=== PATIENT | female | born 1935 | race Caucasian/White ===

== ENCOUNTER → 2017-01-19 | Outpatient (CLI) | payer MEDICARE, OTHER ==
[~2017-01-19] MED LIST: CEPH500C PO; TRAM50TA2 PO
--- NOTE | 2017-01-19 15:50 | Diagnostic Imaging Report ---
INDICATION: Right ankle trauma, pain. EXAMINATION: Three views of the right ankle were obtained. FINDINGS: No fracture, dislocation or other acute abnormalities. IMPRESSION: Negative right ankle. Dictated by: Dictated on workstation # [id number]
== END ==
LOC: RAD 15:18
DX: M25.471 Effusion, right ankle (principal)
CPT/HCPCS: 73610

== ENCOUNTER → 2017-02-01 | Outpatient (CLI) | payer MEDICARE, OTHER ==
--- NOTE | 2017-02-01 15:21 | Diagnostic Imaging Report ---
PROCEDURE: CT right lower extremity without contrast. TECHNIQUE: Axially acquired CT was obtained through the right ankle without intravenous contrast. Coronal and sagittal reformations were also performed. INDICATION: Right ankle bruising after fall three weeks ago. FINDINGS: There is no fracture or dislocation seen. There is no focal bone lesion or bone destruction identified. There is significant circumferential soft tissue swelling mostly involving the subcutaneous tissues and is more pronounced along the anterolateral aspect of the ankle. No focal discrete fluid collection, however, is seen. There are degenerative changes with small osteophytes noted at the anterior and posterior margins of the ankle. The tendons including the Achilles tendon and the plantar fascia around the right ankle appear grossly unremarkable. IMPRESSION: No fracture or focal bone abnormality seen. There is nonspecific circumferential subcutaneous tissue edema around the ankle seen. Dictated by: Dictated on workstation # [id number]
== END ==
LOC: RAD 13:20
DX: M25.571 Pain in right ankle and joints of right foot (principal); R60.0 Localized edema
CPT/HCPCS: 73700

== ENCOUNTER 2017-04-12 10:55 | Outpatient (RCR) | payer MEDICARE, OTHER ==
[2017-04-01] MEDS: LINEZOLID 600MG/300ML IVPB (PRE-MIX) IV SCH (13:36)
[2017-04-01 14:54] VITALS: BP 142/86
[2017-04-02] MEDS: LINEZOLID 600MG/300ML IVPB (PRE-MIX) IV SCH ×2 (08:57→19:56)
[2017-04-02] MEDS: CATHETER FLUSH 10 ML SYR IV PRN ×2 (08:57→09:55)
[2017-04-02 09:26] VITALS: BP 120/80
[2017-04-02 20:01] VITALS: BP 120/80
[2017-04-03] MEDS: LINEZOLID 600MG/300ML IVPB (PRE-MIX) IV SCH ×2 (09:00→19:55)
[2017-04-03] MEDS: CATHETER FLUSH 10 ML SYR IV PRN ×3 (09:00→19:55)
[2017-04-03 09:22] VITALS: BP 120/80
[2017-04-03 19:45] VITALS: BP 0/0
[2017-04-04] MEDS: CATHETER FLUSH 10 ML SYR IV PRN ×3 (09:02→19:43)
[2017-04-04 09:05] VITALS: BP 0/0
[2017-04-04] MEDS: LINEZOLID 600MG/300ML IVPB (PRE-MIX) IV SCH ×2 (09:05→19:43)
[2017-04-04 19:45] VITALS: BP 0/0
[2017-04-05] MEDS: LINEZOLID 600MG/300ML IVPB (PRE-MIX) IV SCH ×2 (08:43→19:49)
[2017-04-05] MEDS: CATHETER FLUSH 10 ML SYR IV PRN ×4 (08:43→20:57)
[2017-04-05 09:55] VITALS: BP 0/0
[2017-04-05 21:02] VITALS: BP 0/0
[2017-04-06] MEDS: LINEZOLID 600MG/300ML IVPB (PRE-MIX) IV SCH ×2 (08:43→19:44)
[2017-04-06] MEDS: CATHETER FLUSH 10 ML SYR IV PRN ×2 (08:43→19:44)
[2017-04-06 09:48] VITALS: BP 0/0
[2017-04-06 19:40] VITALS: BP 0/0
[2017-04-07] MEDS: CATHETER FLUSH 10 ML SYR IV PRN ×2 (08:42→09:44)
[2017-04-07] MEDS: LINEZOLID 600MG/300ML IVPB (PRE-MIX) IV SCH ×2 (08:44→19:45)
[2017-04-07 09:45] VITALS: BP 0/0
[2017-04-07 21:00] VITALS: BP 0/0
[2017-04-08] MEDS: CATHETER FLUSH 10 ML SYR IV PRN (08:52)
[2017-04-08] MEDS: LINEZOLID 600MG/300ML IVPB (PRE-MIX) IV SCH (08:52)
[2017-04-08 09:50] VITALS: BP 0/0
[~2017-04-12] VITALS: Ht 157.5 cm; Wt 71.4 kg
[2017-04-12 11:27] VITALS: BP 0/0
== END 2017-05-14 | disposition home or self-care (01) ==
LOC: 4TH RCR 10:55
DX: L03.115 Cellulitis of right lower limb (principal)
CPT/HCPCS: 76937; 96365

== ENCOUNTER → 2017-05-05 | Outpatient (CLI) | payer MEDICARE, OTHER ==
--- NOTE | 2017-05-05 14:08 | Diagnostic Imaging Report ---
Renal ultrasound. INDICATION: Hydronephrosis. FINDINGS: The right kidney is 8.2 and the left kidney is 9.2 cm in length. There is suggestion of minimal pelvocaliectasis or perhaps parapelvic cysts in the left kidney with no significant hydronephrosis. Moderate cortical atrophy seen bilaterally. The bladder is not significantly distended with no definite abnormality. IMPRESSION: Nozx-xe-degquyfm atrophy. Minimal pelvocaliectasis in the left kidney. This appearance could also be related to small parapelvic cysts. Dictated by: Dictated on workstation # [id number]
== END ==
LOC: RAD 13:07
DX: N13.30 Unspecified hydronephrosis (principal)
CPT/HCPCS: 76770

== ENCOUNTER 2017-05-29 14:05 | Outpatient (RCR) | payer MEDICARE, OTHER ==
[2017-05-27 15:30] VITALS: BP 118/80
[2017-05-27] MEDS: cefTRIAXone 1 GM (ROCEPHIN) VIAL IM SCH (16:18)
[2017-05-27] MEDS: LIDOCAINE 1% INJ 20 ML (XYLOCAINE) VIAL INJ SCH (16:19)
[2017-05-28 18:31] VITALS: BP 110/75
[2017-05-28] MEDS: LIDOCAINE 1% INJ 20 ML (XYLOCAINE) VIAL INJ SCH (18:36)
[2017-05-28] MEDS: cefTRIAXone 1 GM (ROCEPHIN) VIAL IM SCH (18:36)
[~2017-05-29] VITALS: Ht 157.5 cm; Wt 71.4 kg
[~2017-05-29 14:05] MED LIST changes: +cefTRIAXone 1 GM (ROCEPHIN) VIAL IM ONE
[2017-05-29 14:11] VITALS: BP_SYST 110; BP_DIAS 71; BP_DIAS 75
[2017-05-29] MEDS: cefTRIAXone 1 GM (ROCEPHIN) VIAL IM SCH (14:17)
[2017-05-29] MEDS: LIDOCAINE 1% INJ 20 ML (XYLOCAINE) VIAL INJ SCH (14:17)
== END 2017-08-25 | disposition home or self-care (01) ==
LOC: 4TH RCR 14:05
DX: N39.0 Urinary tract infection, site not specified (principal)
CPT/HCPCS: 96372

== ENCOUNTER → 2017-07-05 | Outpatient (CLI) | payer MEDICARE, OTHER ==
[~2017-07-05] MED LIST changes: -cefTRIAXone 1 GM (ROCEPHIN) VIAL IM ONE
--- NOTE | 2017-07-05 18:13 | Diagnostic Imaging Report ---
PROCEDURE: US Carotid Duplex Bilateral. TECHNIQUE: Multiple real-time grayscale images were obtained over the carotid arteries in various projections bilaterally. Additional duplex Doppler and color Doppler images were also obtained. INDICATION: Transient cerebral attack. FINDINGS: There is mild atherosclerotic calcified plaque along the distal common carotid and proximal internal carotid artery. The right carotid arteries demonstrate no significant plaque. Color Doppler demonstrates patency of the common, internal and external carotid arteries. The vertebral arteries demonstrate antegrade flow on both sides. Peak systolic velocities in the right ICA are 53, 68, and 65 cm/s from proximal to distal and on the left 48, 74, and 76 cm/s. ICA/CCA ratios are up to 1 on the right side and 1.1 on the left. IMPRESSION: Estimated underlying stenosis is less than 40% on both sides. Dictated by: Dictated on workstation # [id number]
== END ==
LOC: RAD 10:51
DX: G45.9 Transient cerebral ischemic attack, unspecified (principal)
CPT/HCPCS: 93880

== ENCOUNTER → 2017-08-02 | Outpatient (CLI) | payer MEDICARE, OTHER | LOC: CARD 09:36 | DX: G45.9 Transient cerebral ischemic attack, unspecified (principal) | CPT/HCPCS: 93306 ==

== ENCOUNTER → 2017-09-29 | Outpatient (CLI) | payer MEDICARE, OTHER ==
[~2017-09-29] MED LIST changes: +IOHEXOL 350 MG/ML 100 ML (OMNIPAQUE 350) VIAL IV ONE; +NS 250 ML (IVPB) BAG IV ONE
--- NOTE | 2017-09-29 11:21 | Diagnostic Imaging Report ---
PROCEDURE: CT abdomen and pelvis with and without contrast. TECHNIQUE: Precontrast acquisitions were acquired through the abdomen and pelvis. Multiple contiguous axial images were obtained through the abdomen and pelvis after the administration of intravenous contrast. INDICATION: Right upper quadrant pain for one week. Comparison is made with prior CT from 09/06/2012. The lung bases are clear. The liver contains a small low-density in the right lobe near the dome, stable when compared with exam from September 06, 2012 and likely a cyst. There is generalized low density throughout the liver suggestive of hepatic steatosis. The gallbladder is surgically absent. The pancreas and spleen are unremarkable. No adrenal mass is detected. Both kidneys do contain renal sinus cysts. The aorta is non-aneurysmal. The small and large bowel loops are normal caliber. There is sigmoid diverticulosis without evidence of acute diverticulitis. There is a tiny fat-containing umbilical hernia. There is no ascites. IMPRESSION: 1. Hepatic steatosis and probable small hepatic cyst. 2. Sigmoid diverticulosis without evidence of acute diverticulitis. 3. No acute features detected. Dictated by: Dictated on workstation # [id number]
== END ==
LOC: RAD 09-27 10:03
DX: K76.0 Fatty (change of) liver, not elsewhere classified (principal); K57.30 Diverticulosis of large intestine without perforation or abscess without bleeding
CPT/HCPCS: 74178

== ENCOUNTER 2018-01-31 09:58 | Observation (INO) | payer MEDICARE, OTHER ==
[~2018-01-31] VITALS: Ht 157.5 cm; Wt 67.6 kg
[~2018-01-31 09:58] MED LIST changes: -IOHEXOL 350 MG/ML 100 ML (OMNIPAQUE 350) VIAL IV ONE; -NS 250 ML (IVPB) BAG IV ONE
--- NOTE | 2018-01-31 11:20 | Diagnostic Imaging Report ---
INDICATION: Status post fall, scrapes and bruises, pain. TECHNIQUE: Two views of the right forearm were performed. CORRELATION STUDY: None. FINDINGS: There is diffuse bony demineralization. No findings to suggest an acute fracture about the radius and/or ulna. Limited visualization of the elbow appears unremarkable. There may be a previous ulnar styloid process fracture. There is a lucency through the distal lateral radius. A definitive fracture line is not otherwise suggested. No offset. IMPRESSION: 1. Lucency of the distal lateral radius at the region of the radial styloid. While this may be artifactual, correlation for any symptoms in this area would be recommended. If further assessment is desired, dedicated wrist radiographs would be recommended. 2. The remainder of the examination is unremarkable for acute findings. Diffuse bony demineralization is present. Dictated by: Dictated on workstation # [id number]
--- NOTE | 2018-01-31 11:24 | Diagnostic Imaging Report ---
PROCEDURE: CT head and CT cervical spine without contrast. TECHNIQUE: Multiple contiguous axial images were obtained through the brain and cervical spine without the use of intravenous contrast. Sagittal and coronal reformations through the cervical spine were then performed. INDICATION: Trauma. Fall. COMPARISON: CT head dated 07/08/2014. FINDINGS: CT head: The ventricles and cortical sulci are diffusely prominent, compatible with age-related volume loss. There are confluent areas of abnormal, low attenuation in the periventricular white matter. This is consistent with chronic small vessel ischemic changes. There is no midline shift or mass-effect. No acute intra-axial hemorrhage is seen. There are no abnormal areas of increased or decreased density to suggest acute hemorrhage or edema. No extra-axial masses or collections are present. There is small soft tissue hematoma posterior laterally on the right. Evaluation of underlying bony calvarium does demonstrate acute nondepressed fracture extending from the left occipital region inferiorly to the left suboccipital region posterior to the mastoid air cells this is best visualized on the accompanying CT cervical spine exam (image 1, series 4). The visualized portions of mastoid air cells and paranasal sinuses are clear. CT cervical spine: Evaluation static alignment demonstrates straightening with slight reversal of normal lordotic curvature of cervical spine. Findings may be related to positioning, as well as spasm. There is no significant anteroretrolisthesis. There is no evidence of jumped facets. Vertebral body heights are maintained. There is no evidence of acute fracture. No bony fragments are seen within the spinal canal. There are zech-xp-hqujixyn multilevel degenerative changes consisting of intervertebral disc height loss with anterior and posterior disc osteophyte complex formations. These changes appear greatest at the C4-C5 and C6-C7 levels. IMPRESSION: 1. No acute intracranial abnormality. No CT evidence of mass, acute infarct or intracranial hemorrhage. 2. Nondepressed right occipital calvarial fracture. 3. Age-related parenchymal volume loss with chronic small vessel ischemic changes in the deep white matter. 4. No CT evidence of acute fracture or dislocation of cervical spine. 5. Hcvx-kd-yyrcolos multilevel degenerative changes of the cervical spine. Results are called to Jovani Drake by Dr. James at approximately 1110 hours on 01/31/2018. Dictated by: Dictated on workstation # [id number]
[2018-01-31] MEDS ORDERED: HYDROcodone/APAP 5 MG/325 MG (LORTAB) TAB PO ONE (12:30)
[2018-01-31 12:31] LABS: BASOPHILS % (AUTO) 0 % (0-10); EOSINOPHILS % (AUTO) 0 % (0-10); HEMATOCRIT 41 % (35-52); HEMOGLOBIN 13.1 G/DL (11.5-16.0); LYMPHOCYTES % (AUTO) 5 % (12-44); MEAN CORPUSCULAR HEMOGLOBIN 31 PG (25-34); MEAN CORPUSCULAR HGB CONC 32 G/DL (32-36); MEAN CORPUSCULAR VOLUME 96 FL (80-99); MEAN PLATELET VOLUME 10.1 FL (7.4-10.4); MONOCYTES # (AUTO) 1.2 X 10^3 (0.0-1.0); MONOCYTES % (AUTO) 6 % (0-12); NEUTROPHILS # (AUTO) 19.3 X 10^3 (1.8-7.8); NEUTROPHILS % (AUTO) 90 % (42-75); PLATELET COUNT 223 10^3/uL (130-400); RED BLOOD COUNT 4.26 10^6/uL (4.35-5.85); RED CELL DISTRIBUTION WIDTH 14.7 % (10.0-14.5); WHITE BLOOD COUNT 21.5 10^3/uL (4.3-11.0)
[2018-01-31] MEDS ORDERED: ONDANSETRON 4 MG/2 ML (SDV) Z0FRAN IVP ONE (12:45)
[2018-01-31 12:48] LABS: ALANINE AMINOTRANSFERASE 20 U/L (0-55); ALBUMIN 3.8 GM/DL (3.2-4.5); ALKALINE PHOSPHATASE 64 U/L (40-136); BILIRUBIN,TOTAL 0.5 MG/DL (0.1-1.0); BUN/CREATININE RATIO 19; CALCIUM 9.3 MG/DL (8.5-10.1); CARBON DIOXIDE 26 MMOL/L (21-32); CHLORIDE 109 MMOL/L (98-107); CREATININE SERUM 0.84 MG/DL (0.60-1.30); GFR ESTIMATED > 60; GLUCOSE 150 MG/DL (70-105); POTASSIUM 3.7 MMOL/L (3.6-5.0); SODIUM 144 MMOL/L (135-145); TOTAL PROTEIN 6.4 GM/DL (6.4-8.2)
[2018-01-31 12:55] LABS: PROTHROMBIN TIME PATIENT 12.6 SEC (12.2-14.7)
--- NOTE | 2018-01-31 13:05 | ED Fall/Injury ---
General Chief Complaint: Trauma-Non Activation Stated Complaint: FALL Nursing Triage Note: TO ROOM PER EMS [facility] [facility] AND HIT HER HEAD. NO LOC,BUT REPORT TORE HER SKIN ON R ARM WHEN TRYING TO GET UP. REFUSED TO HAVE VITALS TAKEN OR BE TOUCHED. EMS REPORT BLEEDING FROM BACK OF HEAD. Source: patient, EMS Exam Limitations: no limitations History of Present Illness Date Seen by Provider: Jan 31, 2018 Time Seen by Provider: 10:00 Initial Comments This 82-year-old woman presents to the emergency room via EMS after having a fall in the parking lot at the [employer]. She is not certain what made her fall but she denies any prodrome or loss of consciousness. She complains of pain on the posterior scalp where there is oozing abrasion/contusion. She also has pain of the right forearm where there is a large skin tear. She is fairly resistant to assessment by EMS. She reports very sensitive and fragile skin that is easily irritated by a blood pressure cuff, transfers, etc. She refuses use of blood pressure cuffs. She is alert and oriented on arrival. Patient states she takes no medications except occasional hydrocodone. At a later time in her visit she notes she is currently being treated with IM and antibiotics for a urinary tract infection. This is being managed by Dr. Muhammad's office. Patient states she has interstitial cystitis and was to have bladder surgery recently. However, she aborted the surgery in preop because of the staff's desire to obtain blood pressures per her report. Patient states she has MS and that may be why she fell. Patient complains of headache and just not feeling well. Patient states she cannot walk without a walker at baseline. Occurred: just prior to arrival Allergies and Home Medications Allergies Coded Allergies: arformoterol (Verified Allergy, Intermediate, TREMORS, 06/14/16) azithromycin (Verified Allergy, Intermediate, RASH, 06/14/16) cefadroxil (Verified Allergy, Intermediate, RASH, 06/14/16) cephalexin (Verified Allergy, Intermediate, JAW PAIN, 06/14/16) levofloxacin (Verified Allergy, Intermediate, JOINT PAIN, 06/14/16) Penicillins (Verified Allergy, Unknown, 07/08/14) Sulfa (Sulfonamide Antibiotics) (Verified Allergy, Unknown, 07/08/14) albuterol (Verified Allergy, Unknown, 06/14/16) ciprofloxacin (Verified Allergy, Unknown, 07/08/14) erythromycin base (Verified Allergy, Unknown, 06/14/16) Uncoded Allergies: "CYCLINES" (Allergy, Unknown, 10/02/14) Home Medications No Active Prescriptions or Reported Meds Patient Home Medication List Home Medication List Reviewed: Yes Review of Systems Constitutional: see HPI Eyes: No Symptoms Reported Ears, Nose, Mouth, Throat: no symptoms reported Respiratory: no symptoms reported Cardiovascular: no symptoms reported Gastrointestinal: no symptoms reported Genitourinary: see HPI : No Musculoskeletal: see HPI Skin: see HPI Psychiatric/Neurological: No Symptoms Reported Past Ndovict-Czhthj-Rhfxhm Hx Patient Social History Alcohol Use: Denies Use Recreational Drug Use: No Smoking Status: Unknown if Ever Smoked Recent Foreign Travel: No Contact w/Someone Who Travel: No Recent Infectious Disease Expo: No Recent Hopitalizations: No Immunizations Up To Date Tetanus Booster (TDap): More than 5yrs Date of Pneumonia Vaccine: May 15, 2010 Date of Influenza Vaccine: May 31, 2016 Seasonal Allergies Seasonal Allergies: No Past Medical History Surgeries: Yes (LEFT WRIST FX-PLATE) Adenoidectomy, Appendectomy, Gallbladder, Hysterectomy, Lumpectomy, Tonsillectomy Respiratory: Yes COPD Cardiac: No Neurological: Yes (stated history of multiple sclerosis) Multiple Sclerosis : No Reproductive Disorders: No 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 Sexually Transmitted Disease: No HIV/AIDS: No Genitourinary: Yes (interstitial cystitis) Gastrointestinal: No Musculoskeletal: Yes (FREQUENT FALLS-FROM HIP GIVING OUT ) Fractures Endocrine: No HEENT: Yes Cataract, Glaucoma Loss of Vision: Denies Hearing Impairment: Denies Cancer: No Psychosocial: No Integumentary: Yes (CELLULITIS RT LOWER LEG) Blood Disorders: No Adverse Reaction/Blood Tranf: No (HAS HAD BLOOD WITH NO REACTION (CHILD )) Physical Exam Vital Signs Vital Signs - First Documented 01/31/18 10:08 Temp 97.0 Pulse 82 Resp 18 B/P (MAP) 0/0 (0) Pulse Ox 97 O2 Delivery Room Air Capillary Refill : Less Than 3 Seconds General Appearance: WD/WN, mild distress HEENT: PERRL/EOMI, pharynx normal, other (contusion/abrasion on the right occiput oozing blood) Neck: non-tender, full range of motion, normal inspection Cardiovascular: regular rate, rhythm, no edema, no murmur Respiratory: lungs clear, normal breath sounds, no respiratory distress, no accessory muscle use Gastrointestinal: normal bowel sounds, non tender, soft Extremities: other (mild edema and ecchymosis around the ankles. Skin tear on the right elbow with scattered bruising on the forearms. Tenderness diffusely on the extremities stated as chronic) Neurologic/Psychiatric: food taster II-XII nml as tested, no motor/sensory deficits, alert, oriented x 3, other (moderately irritable mood) Skin: normal color, warm/dry, ecchymosis Leeanna Coma Score Best Eye Response: (4) Open Spontaneously Best Verbal Response: (5) Oriented Best Motor Response: (6) Obeys Commands Leeanna Total: 15 Progress/Results/Core Measures Results/Orders Lab Results Laboratory Tests Test 01/31/18 12:22 Range/Units White Blood Count 21.5 H 4.3-11.0 10^3/uL Red Blood Count 4.26 L 4.35-5.85 10^6/uL Hemoglobin 13.1 11.5-16.0 G/DL Hematocrit 41 35-52 % Mean Corpuscular Volume 96 80-99 FL Mean Corpuscular Hemoglobin 31 25-34 PG Mean Corpuscular Hemoglobin Concent 32 32-36 G/DL Red Cell Distribution Width 14.7 H 10.0-14.5 % Platelet Count 223 130-400 10^3/uL Mean Platelet Volume 10.1 7.4-10.4 FL Neutrophils (%) (Auto) 90 H 42-75 % Lymphocytes (%) (Auto) 5 L 12-44 % Monocytes (%) (Auto) 6 0-12 % Eosinophils (%) (Auto) 0 0-10 % Basophils (%) (Auto) 0 0-10 % Neutrophils # (Auto) 19.3 H 1.8-7.8 X 10^3 Lymphocytes # (Auto) 1.0 1.0-4.0 X 10^3 Monocytes # (Auto) 1.2 H 0.0-1.0 X 10^3 Eosinophils # (Auto) 0.0 0.0-0.3 10^3/uL Basophils # (Auto) 0.0 0.0-0.1 10^3/uL Neutrophils % (Manual) 85 % Lymphocytes % (Manual) 4 % Monocytes % (Manual) 5 % Eosinophils % (Manual) 0 % Basophils % (Manual) 0 % Band Neutrophils 6 % Blood Morphology Comment NORMAL Prothrombin Time 12.6 12.2-14.7 SEC INR Comment 1.0 0.8-1.4 Activated Partial Thromboplast Time 21 L 24-35 SEC Sodium Level 144 135-145 MMOL/L Potassium Level 3.7 3.6-5.0 MMOL/L Chloride Level 109 H 98-107 MMOL/L Carbon Dioxide Level 26 21-32 MMOL/L Anion Gap 9 5-14 MMOL/L Blood Urea Nitrogen 16 7-18 MG/DL Creatinine 0.84 0.60-1.30 MG/DL Estimat Glomerular Filtration Rate > 60 BUN/Creatinine Ratio 19 Glucose Level 150 H 70-105 MG/DL Calcium Level 9.3 8.5-10.1 MG/DL Total Bilirubin 0.5 0.1-1.0 MG/DL Aspartate Amino Transf (AST/SGOT) 18 5-34 U/L Alanine Aminotransferase (ALT/SGPT) 20 0-55 U/L Alkaline Phosphatase 64 40-136 U/L Total Protein 6.4 6.4-8.2 GM/DL Albumin 3.8 3.2-4.5 GM/DL My Orders Orders - JOVANI DRAKE MD Ct Head/Cervical Spine Wo (01/31/18 10:11) Forearm, Right, 2 Views (01/31/18 10:11) Hydrocodone/Apap 5/325 Tablet (Lortab 5 (01/31/18 12:30) Cbc With Automated Diff (01/31/18 12:16) Comprehensive Metabolic Panel (01/31/18 12:16) Protime With Inr (01/31/18 12:16) Partial Thromboplastin Time (01/31/18 12:16) Ua Culture If Indicated (01/31/18 12:16) Wrist, Right, 3 Views Or More (01/31/18 12:16) Ondansetron Injection (Zofran Injectio (01/31/18 12:45) Manual Differential (01/31/18 12:22) Medications Given in ED Current Medications Medications Dose Ordered Sig/Clare Route Start Time Stop Time Status Last Admin Dose Admin Acetaminophen/ Hydrocodone Bitart 1 tab ONCE ONCE PO 01/31/18 12:30 01/31/18 12:31 DC 01/31/18 12:38 1 TAB Ondansetron HCl 4 mg ONCE ONCE IVP 01/31/18 12:45 01/31/18 12:46 DC 01/31/18 12:37 4 MG Vital Signs/I&O 01/31/18 10:08 Temp 97.0 Pulse 82 Resp 18 B/P (MAP) 0/0 (0) Pulse Ox 97 O2 Delivery Room Air Blood Pressure Mean: 0 Progress Progress Note #1: Time: 13:22 Progress Note Patient was initially fairly resistant to assessment and care. She did consent to x-ray of the right forearm and a CT of the head and C-spine given the nature of her fall. The wound on her scalp did not require repair and was only oozing. It did eventually quit bleeding without intervention. CT scan demonstrated a right occipital skull fracture with no complicating features. It was nondepressed and there was no evidence of intracranial injury. Patient was neurologically intact. Case was reviewed with Dr. Oliva. Patient was offered admission for observation. Given her age and functional status she preferred admission. An IV and labs were obtained. Patient was found to have a leukocytosis. She states she had recently been treated with IM injections of Rocephin for a bladder infection. I contacted Dr. Muhammad's office to inquire about urine culture. No recent cultures have been performed. The office staff reported patient is noncompliant with the timing and duration of her Rocephin injections. Staff also noted that patient recently received a steroid trigger point injection which may have caused leukocytosis. Urine specimen has been collected and is pending. There was questionable fracture of the distal radius on forearm x-rays. Follow-up x-rays of the wrist were performed and demonstrated no fracture. Patient reports being up-to-date on her tetanus immunization. Patient had a very large skin tear on the right elbow. This area was irrigated with normal saline. The superficial skin was stretched back out over the wound. It was dressed topically with antibiotic ointment and Xeroform followed by a sterile gauze wrap. Patient was given Zofran and hydrocodone for treatment of her pain during the course of her care. Progress Note #2: Time: 13:43 Progress Note UA did suggest significant urinary tract infection. I have discussed with Dr. Muhammad's office. Rocephin will be administered in the hospital until culture results are known. The clinic is aware that a urine culture is being processed here and will follow-up on that as an outpatient to ensure appropriate treatment. Please note that patient has a listed Keflex allergy but the office confirms that she tolerates Rocephin injections without problem. Diagnostic Imaging Diagonstic Imaging: CT Plain Films/CT/US/NM/MRI: c-spine, head Comments CT head and C-spine viewed by me and report reviewed. Discussed with the radiologist. See report below: NAME: MILI WILKES [facility] REC#: [id number] PT STATUS: REG ER : 1935 PHYSICIAN: JOVANI DRAKE MD ADMIT DATE: 01/31/18/ER Draft Date of Exam:01/31/18 CT HEAD/CERVICAL SPINE WO PROCEDURE: CT head and CT cervical spine without contrast. TECHNIQUE: Multiple contiguous axial images were obtained through the brain and cervical spine without the use of intravenous contrast. Sagittal and coronal reformations through the cervical spine were then performed. INDICATION: Trauma. Fall. COMPARISON: CT head dated 07/08/2014. FINDINGS: CT head: The ventricles and cortical sulci are diffusely prominent, compatible with age-related volume loss. There are confluent areas of abnormal, low attenuation in the periventricular white matter. This is consistent with chronic small vessel ischemic changes. There is no midline shift or mass-effect. No acute intra-axial hemorrhage is seen. There are no abnormal areas of increased or decreased density to suggest acute hemorrhage or edema. No extra-axial masses or collections are present. There is small soft tissue hematoma posterior laterally on the right. Evaluation of underlying bony calvarium does demonstrate acute nondepressed fracture extending from the left occipital region inferiorly to the left suboccipital region posterior to the mastoid air cells this is best visualized on the accompanying CT cervical spine exam (image 1, series 4). The visualized portions of mastoid air cells and paranasal sinuses are clear. CT cervical spine: Evaluation static alignment demonstrates straightening with slight reversal of normal lordotic curvature of cervical spine. Findings may be related to positioning, as well as spasm. There is no significant anteroretrolisthesis. There is no evidence of jumped facets. Vertebral body heights are maintained. There is no evidence of acute fracture. No bony fragments are seen within the spinal canal. There are ctfu-ll-oztubfxi multilevel degenerative changes consisting of intervertebral disc height loss with anterior and posterior disc osteophyte complex formations. These changes appear greatest at the C4-C5 and C6-C7 levels. IMPRESSION: 1. No acute intracranial abnormality. No CT evidence of mass, acute infarct or intracranial hemorrhage. 2. Nondepressed right occipital calvarial fracture. 3. Age-related parenchymal volume loss with chronic small vessel ischemic changes in the deep white matter. 4. No CT evidence of acute fracture or dislocation of cervical spine. 5. Tuqn-ei-yeywvrmz multilevel degenerative changes of the cervical spine. Results are called to Jovani Drake by Dr. Bennett at approximately 1110 hours on 01/31/2018. Dictated on workstation # [id number] Dict: 01/31/18 1103 Trans: 01/31/18 1124 [facility] [id number] Interpreted by: MARIE BENNETT MD Diagonstic Imaging: Xray Plain Films/CT/US/NM/MRI: forearm Comments Forearm x-ray viewed by me and report reviewed. See report below: NAME: MILI WILKES [facility] REC#: [id number] PT STATUS: REG ER : 1935 PHYSICIAN: JOVANI DRAKE MD ADMIT DATE: 01/31/18/ER Signed Date of Exam: 01/31/18 FOREARM, RIGHT, 2 VIEWS INDICATION: Status post fall, scrapes and bruises, pain. TECHNIQUE: Two views of the right forearm were performed. CORRELATION STUDY: None. FINDINGS: There is diffuse bony demineralization. No findings to suggest an acute fracture about the radius and/or ulna. Limited visualization of the elbow appears unremarkable. There may be a previous ulnar styloid process fracture. There is a lucency through the distal lateral radius. A definitive fracture line is not otherwise suggested. No offset. IMPRESSION: 1. Lucency of the distal lateral radius at the region of the radial styloid. While this may be artifactual, correlation for any symptoms in this area would be recommended. If further assessment is desired, dedicated wrist radiographs would be recommended. 2. The remainder of the examination is unremarkable for acute findings. Diffuse bony demineralization is present. Dictated by: Dictated on workstation # [id number] Dict: 01/31/18 1104 Trans: 01/31/18 1132 Interpreted by: LITO HOLT DO Electronically signed by: LITO HOLT DO 01/31/18 1132 Diagonstic Imaging: Xray Plain Films/CT/US/NM/MRI: other (right wrist) Comments Right wrist x-ray viewed by me and report reviewed. See report below: NAME: MILI WILKES [facility] REC#: [id number] PT STATUS: REG ER : 1935 PHYSICIAN: JOVANI DRAKE MD ADMIT DATE: 01/31/18/ER Draft Date of Exam:01/31/18 WRIST, RIGHT, 3 VIEWS OR MORE INDICATION: Status post fall. Pain. TECHNIQUE: Three views of the right wrist at 1:09 PM. CORRELATION STUDY: None. FINDINGS: There is diffuse bony demineralization present. The radiocarpal articulation appears maintained. There are likely prior ulnar styloid process fractures. There is no acute fracture. The questioned lucency in the distal radius is not present on dedicated wrist views. Asymmetric sclerosis about the mid radial carpal row is present. The visualized soft tissues appearing unremarkable. IMPRESSION: Negative for acute bony abnormality about the right wrist. Diffuse bony demineralization. Dictated on workstation # [id number] Dict: 01/31/18 1301 Trans: 01/31/18 1306 [id number] Interpreted by: LITO HOLT DO Departure Communication (Admissions) Time/Spoke to Admitting Phy: 12:17 Dr. Oliva Impression Primary Impression: Skull fracture Qualified Codes: S02.119A - Unspecified fracture of occiput, initial encounter for closed fracture Additional Impressions: Skin tear of right upper extremity Fall on same level Qualified Codes: W18.30XA - Fall on same level, unspecified, initial encounter Contusion of scalp Qualified Codes: S00.03XA - Contusion of scalp, initial encounter Leukocytosis Qualified Codes: D72.829 - Elevated white blood cell count, unspecified Urinary tract infection Qualified Codes: N39.0 - Urinary tract infection, site not specified Disposition: ADMITTED INPATIENT Condition: Improved Admissions Decision to Admit Reason: Admit from ER (General) Decision to Admit/Date: Jan 31, 2018 Time/Decision to Admit Time: 12:30 Departure-Patient Inst. Referrals: MIRIAN MUHAMMAD MD (PCP/Family) Primary Care Physician Scripts No Active Prescriptions or Reported Meds JOVANI DRAKE MD Jan 31, 2018 13:05
[2018-01-31 13:27] LABS: BILIRUBIN,URINE NEGATIVE (NEGATIVE); CLARITY,URINE SLIGHTLY CLOUDY; COLOR,URINE YELLOW; GLUCOSE, URINE (UA) NEGATIVE (NEGATIVE); KETONES,URINE NEGATIVE (NEGATIVE); LEUKOCYTE ESTERASE ,URINE 3+ (NEGATIVE); NITRITE,URINE POSITIVE (NEGATIVE); PH,URINE 6.5 (5-9); PROTEIN,URINE 1+ (NEGATIVE); UROBILINOGEN,URINE NORMAL (NORMAL)
[2018-01-31 13:29] LABS: BAND NEUTROPHILS 6 %; BASOPHILS % (MANUAL) 0 %; EOSINOPHILS % (MANUAL) 0 %; LYMPHOCYTES % (MANUAL) 4 %; MONOCYTES % (MANUAL) 5 %; NEUTROPHILS % (MANUAL) 85 %; RBC MORPH NORMAL
[2018-01-31 13:35] LABS: BACTERIA,URINE MODERATE /HPF; WBC,URINE 50-100 /HPF
--- OUTSIDE RECORDS SUMMARY | 2018-01-31 13:35 | XMS REPORT | Clinical Summary ---
Author Author [facility] Address Unknown Phone Unavailable Care Team Providers Care Lay Out Worker Name Role Phone Heron Serrato MD PCP Source Comments Some departments are not documenting in the electronic medical record. If you do not see the information that you expected, contact Release of Information in the Health Information Management department at [phone] for further assistance in locating additional records.[facility] Allergies Active Allergy Reactions Severity Noted Date Comments Albuterol UNKNOWN Low 01/17/2017 Arformoterol RASH Medium 01/17/2017 Cefadroxil RASH Medium 01/17/2017 Cephalexin SEE COMMENTS Low 01/17/2017 JAW PAIN, BURNING IN LIPS. Ciprofloxacin RASH Medium 01/17/2017 Erythromycin UNKNOWN Low 01/17/2017 Hydrocodone-Acetaminophen RASH Medium 01/17/2017 Levofloxacin SEE COMMENTS Low 01/17/2017 JOINT PAIN. Minocycline UNKNOWN Low 01/17/2017 Penicillins HIVES Medium 01/17/2017 Sulfa (Sulfonamide HIVES Medium 01/17/2017 Antibiotics) Tetracycline RASH Medium 01/17/2017 Azithromycin RASH Medium 01/17/2017 Current Medications No known medications Active Problems Problem Noted Date Lumbar radiculopathy 01/17/2017 Family History Medical History Relation Name Comments Cancer Father Scoliosis Mother Blood Clots Sister Cancer Sister Relation Name Status Comments Father Mother Sister Social History Tobacco Use Types Packs/Day Years Used Date Never Smoker Alcohol Use Drinks/Week oz/Week Comments No 0 Standard 0.0 drinks or equivalent Sex Assigned at Date Recorded Not on file Last Filed Vital Signs Vital Sign Reading Time Taken Blood Pressure 150/60 02/28/2017 1:22 PM CDT Pulse 87 02/28/2017 1:22 PM CDT Temperature 36.7 C (98 F) 02/28/2017 9:49 AM CDT Respiratory Rate 20 02/28/2017 1:22 PM CDT Oxygen Saturation 98% 02/28/2017 1:22 PM CDT Inhaled Oxygen - - Concentration Weight 64.4 kg (142 lb) 02/28/2017 1:22 PM CDT Height 157.5 cm (5' 2") 02/28/2017 1:22 PM CDT Body Mass Index 25.97 02/28/2017 1:22 PM CDT Plan of Treatment Health Maintenance Due Date Last Done Comments PHYSICAL (COMPREHENSIVE) 10/14/1943 EXAM PERTUSSIS VACCINE 10/14/1947 TETANUS VACCINE 1953 SHINGLES VACCINE 1996 OSTEOPOROSIS SCREENING 2001 PNEUMONIA (PCV13/PPSV23) 2001 VACCINES (1 of 2 - PCV13) INFLUENZA VACCINE 05/15/2018 Results Not on filefrom Last 3 Months
--- OUTSIDE RECORDS SUMMARY | 2018-01-31 13:36 | XMS REPORT | Continuity of Care Document ---
Author Author [facility] Organization [facility] Address Unknown Phone Unavailable Allergies Active Description Code Type Severity Reaction Onset Reported/Identified Relationship to Patient Clinical Status Yes ciprofloxacin [id number] Drug Allergy Unknown N/A 07/08/2014 Yes hydrocodone [id number] Drug Allergy Unknown N/A 07/08/2014 Yes Penicillins [id number] Drug Allergy Unknown N/A 07/08/2014 Yes Sulfa (Sulfonamide Antibiotics) [id number] Drug Allergy Unknown N/A 2013 Yes "CYCLINES" "CYCLINES" Unknown N/A 10/02/2014 Yes arformoterol [id number] Drug Allergy Moderate TREMORS 06/14/2016 Yes azithromycin [id number] Drug Allergy Moderate RASH 06/14/2016 Yes cefadroxil [id number] Drug Allergy Moderate RASH 06/14/2016 Yes cephalexin [id number] Drug Allergy Moderate JAW PAIN 06/14/2016 Yes levofloxacin [id number] Drug Allergy Moderate JOINT PAIN 06/14/2016 Yes albuterol [id number] Drug Allergy Unknown N/A 06/14/2016 Yes erythromycin base [id number] Drug Allergy Unknown N/A 06/14/2016 Medications There is no data. Problems Date Dx Coded Attending Type Code Diagnosis Diagnosed By 12/07/2012 SABINA LEVINE, MIRIAN Vega Ot 707.09 PRESSURE ULCER, OTHER SITE 12/07/2012 MIRIAN MUHAMMAD MD Ot 707.21 PRESSURE ULCER, STAGE I 09/11/2013 MIRIAN MUHAMMAD MD Ot 707.9 CHRONIC SKIN ULCER NOS 09/11/2013 MIRIAN MUHAMMAD MD Ot 727.1 BUNION 12/20/2013 MIRIAN MUHAMMAD MD Ot 585.9 CHRONIC KIDNEY DISEASE, UNSPECIFIED 07/08/2014 Ot 707.09 07/08/2014 Ot 707.21 07/08/2014 Ot 585.9 07/08/2014 MAGI FERNANDES MD Ot 873.0 OPEN WOUND OF SCALP 07/08/2014 MAGI FERNANDES MD Ot 924.21 CONTUSION OF ANKLE 07/08/2014 MAGI FERNANDES MD Ot 959.01 HEAD INJURY, NOS 07/08/2014 MAGI FERNANDES MD Ot E000.8 OTHER EXTERNAL CAUSE STATUS 07/08/2014 MAGI FERNANDES MD Ot E849.0 ACCIDENT IN HOME 07/08/2014 MAGI FERNANDES MD Ot E888.9 FALL NOS 08/20/2014 MIRIAN MUHAMMAD MD Ot 715.96 10/02/2014 Ot 707.09 10/02/2014 Ot 707.21 10/02/2014 Ot 585.9 10/02/2014 Ot 496 CHR AIRWAY OBSTRUCT NEC 10/02/2014 Ot 891.0 OPEN WND KNEE /LEG/ANKLE 10/02/2014 Ot 924.8 MULTIPLE CONTUSIONS NEC 10/02/2014 Ot E000.8 OTHER EXTERNAL CAUSE STATUS 10/02/2014 Ot E849.0 ACCIDENT IN HOME 10/02/2014 Ot E888.1 FALL STRIKING OBJECT NEC 10/02/2014 Ot 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-PERTUSSIS, COMBINED [ 10/07/2014 Ot 457.1 OTHER LYMPHEDEMA 10/07/2014 Ot 459.33 CHRONIC VENOUS HYPERTEN W ULCER/INFLAMMA 10/07/2014 Ot 891.0 OPEN WND KNEE /LEG/ANKLE 10/07/2014 Ot E000.8 OTHER EXTERNAL CAUSE STATUS 10/07/2014 Ot E849.0 ACCIDENT IN HOME 10/07/2014 Ot E888.9 FALL NOS 06/08/2016 Ot 562.10 DIVERTICULOSIS COLON (W/O MENT OF HEMORR 06/08/2016 Ot 783.21 LOSS OF WEIGHT 06/08/2016 Ot 786.2 COUGH 06/08/2016 Ot 733.90 BONE CARTILAGE DIS NOS 06/08/2016 Ot 707.09 PRESSURE ULCER, OTHER SITE 06/08/2016 Ot 707.21 PRESSURE ULCER, STAGE I 06/08/2016 MIRIAN MUHAMMAD MD Ot 729.5 PAIN IN LIMB 06/08/2016 MIRIAN MUHAMMAD MD Ot 786.50 CHEST PAIN NOS 06/08/2016 MIRIAN MUHAMMAD MD Ot 786.2 COUGH 06/08/2016 Ot 585.9 CHRONIC KIDNEY DISEASE, UNSPECIFIED 06/08/2016 SABINA LEVINE, MIRIAN Vega Ot 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 06/08/2016 SABINA LEVINE, MIRIAN Vega Ot 715.37 LOC OSTEOARTH NOS-ANKLE 06/08/2016 MIRIAN MUHAMMAD MD Ot 719.43 JOINT PAIN-FOREARM 06/08/2016 MIRIAN MUHAMMAD MD Ot 719.47 JOINT PAIN-ANKLE 06/08/2016 SABINA LEVINE, MIRIAN Vega Ot 729.81 SWELLING OF LIMB 06/08/2016 SABINA LEVINE, MIRIAN Vega Ot 733.00 OSTEOPOROSIS NOS 06/08/2016 SABINA LEVINE, MIRIAN Vega Ot 715.96 OSTEOARTHROS NOS-L/LEG 06/08/2016 Ot 562.10 DIVERTICULOSIS COLON (W/O MENT OF HEMORR 06/08/2016 Ot 783.21 LOSS OF WEIGHT 06/08/2016 Ot 786.2 COUGH 06/08/2016 Ot 733.90 BONE CARTILAGE DIS NOS 06/08/2016 Ot 707.09 PRESSURE ULCER, OTHER SITE 06/08/2016 Ot 707.21 PRESSURE ULCER, STAGE I 06/08/2016 SABINA LEVINE, MIRIAN Vega Ot 729.5 PAIN IN LIMB 06/08/2016 SABINA LEVINE, MIRIAN Vega Ot 786.50 CHEST PAIN NOS 06/08/2016 SABINA LEVINE, MIRIAN Vega Ot 786.2 COUGH 06/08/2016 Ot 585.9 CHRONIC KIDNEY DISEASE, UNSPECIFIED 06/08/2016 MIRIAN MUHAMMAD MD Ot 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 06/08/2016 MIRIAN MUHAMMAD MD Ot 715.37 LOC OSTEOARTH NOS-ANKLE 06/08/2016 MIRIAN MUHAMMAD MD Ot 719.43 JOINT PAIN-FOREARM 06/08/2016 MIRIAN MUHAMMAD MD Ot 719.47 JOINT PAIN-ANKLE 06/08/2016 MIRIAN MUHAMMAD MD Ot 729.81 SWELLING OF LIMB 06/08/2016 MIRIAN MUHAMMAD MD Ot 733.00 OSTEOPOROSIS NOS 06/08/2016 SABINA LEVINE, MIRIAN Vega Ot 715.96 OSTEOARTHROS NOS-L/LEG 06/09/2016 PARKER LEVINE, LEEANN Sal Ot R22.42 LOCALIZED SWELLING, MASS AND LUMP, LEFT 06/14/2016 Ot 562.10 DIVERTICULOSIS COLON (W/O MENT OF HEMORR 06/14/2016 Ot 783.21 LOSS OF WEIGHT 06/14/2016 Ot 786.2 COUGH 06/14/2016 Ot 733.90 BONE CARTILAGE DIS NOS 06/14/2016 Ot 707.09 PRESSURE ULCER, OTHER SITE 06/14/2016 Ot 707.21 PRESSURE ULCER, STAGE I 06/14/2016 MIRIAN MUHAMMAD MD Ot 729.5 PAIN IN LIMB 06/14/2016 MIRIAN MUHAMMAD MD Ot 786.50 CHEST PAIN NOS 06/14/2016 MIRIAN MUHAMMAD MD Ot 786.2 COUGH 06/14/2016 Ot 585.9 CHRONIC KIDNEY DISEASE, UNSPECIFIED 06/14/2016 MIRIAN MUHAMMAD MD Ot 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 06/14/2016 MIRIAN MUHAMMAD MD Ot 715.37 LOC OSTEOARTH NOS-ANKLE 06/14/2016 MIRIAN MUHAMMAD MD Ot 719.43 JOINT PAIN-FOREARM 06/14/2016 MIRIAN MUHAMMAD MD Ot 719.47 JOINT PAIN-ANKLE 06/14/2016 SABINA LEVINE, MIRIAN Vega Ot 729.81 SWELLING OF LIMB 06/14/2016 SABINA LEVINE, MIRIAN Vega Ot 733.00 OSTEOPOROSIS NOS 06/14/2016 SABINA LEVINE, MIRIAN Vega Ot 715.96 OSTEOARTHROS NOS-L/LEG 06/14/2016 PARKER LEVINE, LEEANN Sal Ot R22.42 LOCALIZED SWELLING, MASS AND LUMP, LEFT 06/14/2016 Ot 562.10 DIVERTICULOSIS COLON (W/O MENT OF HEMORR 06/14/2016 Ot 783.21 LOSS OF WEIGHT 06/14/2016 Ot 786.2 COUGH 06/14/2016 Ot 733.90 BONE CARTILAGE DIS NOS 06/14/2016 Ot 707.09 PRESSURE ULCER, OTHER SITE 06/14/2016 Ot 707.21 PRESSURE ULCER, STAGE I 06/14/2016 MIRIAN MUHAMMAD MD Ot 729.5 PAIN IN LIMB 06/14/2016 MIRIAN MUHAMMAD MD Ot 786.50 CHEST PAIN NOS 06/14/2016 MIRIAN MUHAMMAD MD Ot 786.2 COUGH 06/14/2016 Ot 585.9 CHRONIC KIDNEY DISEASE, UNSPECIFIED 06/14/2016 SABINA LEVINE, MIRIAN Vega Ot 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 06/14/2016 MIRIAN MUHAMMAD MD Ot 715.37 LOC OSTEOARTH NOS-ANKLE 06/14/2016 MIRIAN MUHAMMAD MD Ot 719.43 JOINT PAIN-FOREARM 06/14/2016 MIRIAN MUHAMMAD MD Ot 719.47 JOINT PAIN-ANKLE 06/14/2016 SABINA LEVINE, MIRIAN Vega Ot 729.81 SWELLING OF LIMB 06/14/2016 SABINA LEVINE, MIRIAN Vega Ot 733.00 OSTEOPOROSIS NOS 06/14/2016 SABINA LEVINE, MIRIAN Vega Ot 715.96 OSTEOARTHROS NOS-L/LEG 06/14/2016 PARKER LEVINE, LEEANN Sal Ot R22.42 LOCALIZED SWELLING, MASS AND LUMP, LEFT 06/14/2016 Ot 707.09 PRESSURE ULCER, OTHER SITE 06/14/2016 Ot 707.21 PRESSURE ULCER, STAGE I 06/14/2016 Ot 585.9 CHRONIC KIDNEY DISEASE, UNSPECIFIED 06/14/2016 Ot 562.10 DIVERTICULOSIS COLON (W/O MENT OF HEMORR 06/14/2016 Ot 783.21 LOSS OF WEIGHT 06/14/2016 Ot 786.2 COUGH 06/14/2016 Ot 733.90 BONE CARTILAGE DIS NOS 06/14/2016 Ot 707.09 PRESSURE ULCER, OTHER SITE 06/14/2016 Ot 707.21 PRESSURE ULCER, STAGE I 06/14/2016 SABINA LEVINE, MIRIAN Vega Ot 729.5 PAIN IN LIMB 06/14/2016 SABINA LEVINE, MIRIAN Vega Ot 786.50 CHEST PAIN NOS 06/14/2016 SABINA LEVINE, MIRIAN Vega Ot 786.2 COUGH 06/14/2016 Ot 585.9 CHRONIC KIDNEY DISEASE, UNSPECIFIED 06/14/2016 SABINA LEVINE, MIRIAN Vega Ot 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 06/14/2016 MIRIAN MUHAMMAD MD Ot 715.37 LOC OSTEOARTH NOS-ANKLE 06/14/2016 MIRIAN MUHAMMAD MD Ot 719.43 JOINT PAIN-FOREARM 06/14/2016 MIRIAN MUHAMMAD MD Ot 719.47 JOINT PAIN-ANKLE 06/14/2016 MIRIAN MUHAMMAD MD Ot 729.81 SWELLING OF LIMB 06/14/2016 MIRIAN MUHAMMAD MD Ot 733.00 OSTEOPOROSIS NOS 06/14/2016 MIRIAN MUHAMMAD MD Ot 715.96 OSTEOARTHROS NOS-L/LEG 06/14/2016 LEEANN CANALES MD Ot R22.42 LOCALIZED SWELLING, MASS AND LUMP, LEFT 06/14/2016 LEEANN CANALES MD Ot Z01.818 ENCOUNTER FOR OTHER PREPROCEDURAL EXAMIN 06/14/2016 LEEANN CANALES MD Ot Z11.2 ENCOUNTER FOR SCREENING FOR OTHER BACTER 06/15/2016 LEEANN CANALES MD Ot Z01.818 ENCOUNTER FOR OTHER PREPROCEDURAL EXAMIN 06/15/2016 LEEANN CANALES MD Ot Z11.2 ENCOUNTER FOR SCREENING FOR OTHER BACTER 06/16/2016 LEEANN CANALES MD Ot I89.8 OTH NONINFECTIVE DISORDERS OF LYMPHATIC 06/17/2016 LEEANN CANALES MD Ot I89.8 OTH NONINFECTIVE DISORDERS OF LYMPHATIC 06/17/2016 LEEANN CANALES MD Ot I89.8 OTH NONINFECTIVE DISORDERS OF LYMPHATIC 06/29/2016 LEEANN CANALES MD Ot R22.42 LOCALIZED SWELLING, MASS AND LUMP, LEFT 07/01/2016 LEEANN CANALES MD Ot I89.8 OTH NONINFECTIVE DISORDERS OF LYMPHATIC 07/01/2016 LEEANN CANALES MD Ot R22.42 LOCALIZED SWELLING, MASS AND LUMP, LEFT 01/27/2017 Ot 562.10 DIVERTICULOSIS COLON (W/O MENT OF HEMORR 01/27/2017 Ot 783.21 LOSS OF WEIGHT 01/27/2017 Ot 786.2 COUGH 01/27/2017 Ot 733.90 BONE CARTILAGE DIS NOS 01/27/2017 Ot 707.09 PRESSURE ULCER, OTHER SITE 01/27/2017 Ot 707.21 PRESSURE ULCER, STAGE I 01/27/2017 MIRIAN MUHAMMAD MD Ot 729.5 PAIN IN LIMB 01/27/2017 MIRIAN MUHAMMAD MD Ot 786.50 CHEST PAIN NOS 01/27/2017 MIRIAN MUHAMMAD MD Ot 786.2 COUGH 01/27/2017 Ot 585.9 CHRONIC KIDNEY DISEASE, UNSPECIFIED 01/27/2017 MIRIAN MUHAMMAD MD Ot 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 01/27/2017 MIRIAN MUHAMMAD MD Ot 715.37 LOC OSTEOARTH NOS-ANKLE 01/27/2017 MIRIAN MUHAMMAD MD Ot 719.43 JOINT PAIN-FOREARM 01/27/2017 MIRIAN MUHAMMAD MD Ot 719.47 JOINT PAIN-ANKLE 01/27/2017 MIRIAN MUHAMMAD MD Ot 729.81 SWELLING OF LIMB 01/27/2017 MIRIAN MUHAMMAD MD Ot 733.00 OSTEOPOROSIS NOS 01/27/2017 MIRIAN MUHAMMAD MD Ot 715.96 OSTEOARTHROS NOS-L/LEG 01/27/2017 PARKER LEVINE, LEEANN Sal Ot R22.42 LOCALIZED SWELLING, MASS AND LUMP, LEFT 01/27/2017 MIRIAN MUHAMMAD MD Ot M25.471 EFFUSION, RIGHT ANKLE 02/02/2017 MIRIAN MUHAMMAD MD Ot M25.571 PAIN IN RIGHT ANKLE AND JOINTS OF RIGHT 02/02/2017 MIRIAN MUHAMMAD MD Ot R60.0 LOCALIZED EDEMA 02/08/2017 MIRIAN MUHAMMAD MD Ot M25.471 EFFUSION, RIGHT ANKLE 02/23/2017 MIRIAN MUHAMMAD MD Ot M25.571 PAIN IN RIGHT ANKLE AND JOINTS OF RIGHT 02/23/2017 MIRIAN MUHAMMAD MD Ot R60.0 LOCALIZED EDEMA 04/05/2017 MIRIAN MUHAMMAD MD Ot L03.115 CELLULITIS OF RIGHT LOWER LIMB 04/06/2017 MIRIAN MUHAMMAD MD Ot L03.115 CELLULITIS OF RIGHT LOWER LIMB 04/06/2017 MIRIAN MUHAMMAD MD Ot L03.115 CELLULITIS OF RIGHT LOWER LIMB 04/07/2017 MIRIAN MUHAMMAD MD Ot L03.115 CELLULITIS OF RIGHT LOWER LIMB 04/07/2017 MIRIAN MUHAMMAD MD Ot L03.115 CELLULITIS OF RIGHT LOWER LIMB 04/07/2017 MIRIAN MUHAMMAD MD Ot L03.115 CELLULITIS OF RIGHT LOWER LIMB 04/08/2017 MIRIAN MUHAMMAD MD Ot L03.115 CELLULITIS OF RIGHT LOWER LIMB 04/12/2017 MIRIAN MUHAMMAD MD Ot L03.115 CELLULITIS OF RIGHT LOWER LIMB 05/11/2017 MIRIAN MUHAMMAD MD Ot N13.30 UNSPECIFIED HYDRONEPHROSIS 05/14/2017 MIRIAN MUHAMMAD MD Ot L03.115 CELLULITIS OF RIGHT LOWER LIMB 05/17/2017 MIRIAN MUHAMMAD MD Ot L03.115 CELLULITIS OF RIGHT LOWER LIMB 05/26/2017 MIRIAN MUHAMMAD MD Ot N13.30 UNSPECIFIED HYDRONEPHROSIS 05/30/2017 MIRIAN MUHAMMAD MD Ot N39.0 URINARY TRACT INFECTION, SITE NOT SPECIF 07/01/2017 MIRIAN MUHAMMAD MD Ot G45.9 TRANSIENT CEREBRAL ISCHEMIC ATTACK, UNSP 07/06/2017 MIRIAN MUHAMMAD MD, Ot G45.9 TRANSIENT CEREBRAL ISCHEMIC ATTACK, UNSP 07/08/2017 MIRIAN MUHAMMAD MD, Ot N39.0 URINARY TRACT INFECTION, SITE NOT SPECIF 07/26/2017 MIRIAN MUHAMMAD MD, Ot G45.9 TRANSIENT [facility]BRAL [facility]HEMIC [facility]ACK, [facility] 08/24/2017 MIRIAN MUHAMMAD MD, Ot G45.9 TRANSIENT CEREBRAL ISCHEMIC ATTACK, [facility] 08/25/2017 MIRIAN MUHAMMAD MD Ot N39.0 URINARY TRACT INFECTION, SITE NOT SPECIF 09/30/2017 MIRIAN MUHAMMAD MD Ot K57.30 DVRTCLOS OF LG INT W/O PERFORATION OR AB 09/30/2017 MIRIAN MUHAMMAD MD Ot K76.0 FATTY (CHANGE OF) LIVER, NOT ELSEWHERE C 10/19/2017 MIRIAN MUHAMMAD MD Ot K57.30 DVRTCLOS OF LG INT W/O PERFORATION OR AB 10/19/2017 MIRIAN MUHAMMAD MD Ot K76.0 FATTY (CHANGE OF) LIVER, NOT ELSEWHERE C Procedures There is no data. Results Test Result Range Methicillin resistant Staphylococcus aureus (MRSA) screening culture - 11:00 Methicillin resistant Staphylococcus aureus (MRSA) screening culture NEG NRG Encounters ACCT No. Visit Date/Time Discharge Status Pt. Type Provider Facility Loc./Unit Complaint [id number] 09/29/2017 09:19:00 09/29/2017 23:59:59 CLS Outpatient MIRIAN MUHAMMAD MD [facility] RAD R10.11 [id number] 08/26/2017 00:38:00 08/26/2017 23:59:59 CLS Preadmit MIRIAN MUHAMMAD MD [facility] 4TH RCR UTI [id number] 05/29/2017 14:05:00 08/25/2017 00:01:00 DIS Outpatient MIRIAN MUHAMMAD MD [facility] [address] RCR UTI [id number] 08/02/2017 09:36:00 08/02/2017 23:59:59 CLS Outpatient MIRIAN MUHAMMAD MD [facility] CARD G45.9 TRANSIENT CAREBRAL ISCHEMIC ATTACK [id number] 07/05/2017 10:51:00 07/05/2017 23:59:59 CLS Outpatient MIRIAN MUHAMMAD MD [facility] RAD G45.9 TRANSIENT CEREBRAL ISCHEMIC ATTACK [id number] 05/15/2017 00:56:00 05/15/2017 23:59:59 CLS Preadmit MIRIAN MUHAMMAD MD Via [address] RCR CELLULITIS R LOWER LEG [id number] 04/12/2017 10:55:00 05/14/2017 00:01:00 DIS Outpatient MIRIAN MUHAMMAD MD Via [address] RCR CELLULITIS R LOWER LEG [id number] 05/05/2017 13:07:00 05/05/2017 23:59:59 CLS Outpatient MIRIAN MUHAMMAD MD [facility] RAD N13.30 [id number] 02/01/2017 13:20:00 02/01/2017 23:59:59 CLS Outpatient MIRIAN MUHAMMAD MD [facility] RAD PAIN IN RIGHT ANKLE AND JOINTS M25.571 [id number] 01/19/2017 15:18:00 01/19/2017 23:59:59 CLS Outpatient MIRIAN MUHAMMAD MD [facility] RAD SWELLING OF ANKLE JOINT [id number] 06/16/2016 08:05:00 06/16/2016 13:30:00 DIS Outpatient LEEANN CANALES MD [facility] LEFT LOWER LEG LYMPHATICS [id number] 06/14/2016 10:27:00 06/14/2016 11:29:00 DIS Outpatient LEEANN CANALES MD [facility] PREOP LEFT LEG LYMPHATICS [id number] 06/08/2016 09:44:00 06/08/2016 23:59:59 CLS Outpatient LEEANN CANALES MD [facility] RAD LUMP [id number] 07/19/2014 08:41:00 07/19/2014 23:59:59 CLS Outpatient MIRIAN MUHAMMAD MD [facility] RAD WEAKNESS AND PAIN [id number] 07/08/2014 22:01:00 07/08/2014 23:59:00 DIS Emergency MAGI FERNANDES MD [facility] ER FALL [id number] 03/07/2014 08:01:00 03/07/2014 23:59:59 CLS Outpatient MIRIAN MUHAMMAD MD [facility] RAD LEFT FOOT ANKLE PAIN, RIGHT WRIST PAIN [id number] 09/27/2013 08:50:00 12/20/2013 00:01:00 DIS Outpatient MIRIAN MUHAMMAD MD [facility] LAB CHRONIC RENAL FAILURE [id number] 09/05/2013 12:45:00 09/11/2013 10:47:00 DIS Outpatient MIRIAN MUHAMMAD MD [facility] WOUNDCARE ULCER ON RT FOOT [id number] 06/07/2013 09:42:00 06/07/2013 23:59:59 CLS Outpatient MIRIAN MUHAMMAD MD [facility] RAD COUGH [id number] 03/27/2013 14:50:00 03/27/2013 23:59:59 CLS Outpatient MIRIAN MUHAMMAD MD [facility] RAD PAIN IN LIMB AND CHEST PAIN UNSP [id number] 12/05/2012 10:45:00 12/07/2012 12:02:00 DIS Outpatient MIRIAN MUHAMMAD MD [facility] WOUNDCARE ULCER [id number] 10/03/2014 08:36:00 Document Registration [id number] 10/02/2014 12:40:00 Document Registration [id number] 12/21/2013 00:00:00 Document Registration [id number] 12/07/2012 12:30:00 Document Registration [id number] 11/24/2012 11:15:00 Document Registration [id number] 09/06/2012 11:22:00 Document Registration [email or web address] 07/19/2014 23:24:00 ACT Document Registration
[2018-01-31 13:39] VITALS: BP 0/0
[2018-01-31] MEDS ORDERED: ONDANSETRON 4 MG/2 ML (SDV) Z0FRAN IV PRN (14:30)
[2018-01-31] MEDS: cefTRIAXone 1 GM/NS 50 ML IVPB IV SCH ×2 (14:58)
--- NOTE | 2018-01-31 16:34 | History & Physical-Surgical ---
History of Present Illness History of Present Illness Reason for visit/HPI HPI per ED: This 82-year-old woman presents to the emergency room via EMS after having a fall in the parking lot at the [employer]. She is not certain what made her fall but she denies any prodrome or loss of consciousness. She complains of pain on the posterior scalp where there is oozing abrasion/ contusion. She also has pain of the right forearm where there is a large skin tear. She is fairly resistant to assessment by EMS. She reports very sensitive and fragile skin that is easily irritated by a blood pressure cuff, transfers, etc. She refuses use of blood pressure cuffs. She is alert and oriented on arrival. Patient states she takes no medications except occasional hydrocodone. At a later time in her visit she notes she is currently being treated with IM and antibiotics for a urinary tract infection. This is being managed by Dr. Serrato's office. Patient states she has interstitial cystitis and was to have bladder surgery recently. However, she aborted the surgery in preop because of the staff's desire to obtain blood pressures per her report. Patient states she has MS and that may be why she fell. Patient complains of headache and just not feeling well. Patient states she cannot walk without a walker at baseline. When seen now, pt states her headache "is still there, but better." Pt denies any visual problems, No LOC. Date of Admission Jan 31, 2018 at 12:47 Time Seen by Provider: 16:01 I consulted on this patient on 01/31/18 16:29 Attending Physician Silvano Oliva DO Admitting Physician Heron Serrato MD Consult Allergies and Home Medications Allergies Coded Allergies: arformoterol (Verified Allergy, Intermediate, TREMORS, 06/14/16) azithromycin (Verified Allergy, Intermediate, RASH, 06/14/16) cefadroxil (Verified Allergy, Intermediate, RASH, 06/14/16) cephalexin (Verified Allergy, Intermediate, JAW PAIN, 06/14/16) levofloxacin (Verified Allergy, Intermediate, JOINT PAIN, 06/14/16) Penicillins (Verified Allergy, Unknown, 07/08/14) Sulfa (Sulfonamide Antibiotics) (Verified Allergy, Unknown, 07/08/14) albuterol (Verified Allergy, Unknown, 06/14/16) ciprofloxacin (Verified Allergy, Unknown, 07/08/14) erythromycin base (Verified Allergy, Unknown, 06/14/16) Uncoded Allergies: "CYCLINES" (Allergy, Unknown, 10/02/14) Home Medications No Active Prescriptions or Reported Meds Patient Home Medication List Home Medication List Reviewed: Yes Past Nmchfub-Fvnjgv-Plmhhk Hx Patient Social History Alcohol Use: Denies Use Recreational Drug Use: No Smoking Status: Never a Smoker Recent Foreign Travel: No Contact w/Someone Who Travel: No Recent Infectious Disease Expo: No Recent Hopitalizations: No Immunizations Up To Date Tetanus Booster (TDap): More than 5yrs Date of Pneumonia Vaccine: May 15, 2010 Date of Influenza Vaccine: May 31, 2016 Seasonal Allergies Seasonal Allergies: No Surgeries History of Surgeries: Yes (LEFT WRIST FX-PLATE) Surgeries: Adenoidectomy, Appendectomy, Gallbladder, Hysterectomy, Lumpectomy, Tonsillectomy Respiratory History of Respiratory Disorde: Yes Respiratory Disorders: COPD Cardiovascular History of Cardiac Disorders: No Neurological History of Neurological Disord: Yes (stated history of multiple sclerosis) Neurological Disorders: Multiple Sclerosis Reproductive System : No Hx Reproductive Disorders: No Sexually Transmitted Disease: No HIV/AIDS: No 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 Genitourinary History of Genitourinary Disor: Yes (interstitial cystitis) Gastrointestinal History of Gastrointestinal Di: No Musculoskeletal History of Musculoskeletal Dis: Yes (FREQUENT FALLS-FROM HIP GIVING OUT ) Musculoskeletal Disorders: Fractures Endocrine History of Endocrine Disorders: No HEENT History of HEENT Disorders: Yes HEENT Disorders: Cataract, Glaucoma Loss of Vision: Denies Hearing Impairment: Denies Cancer History of Cancer: No Psychosocial History of Psychiatric Problem: No Integumentary History of Skin or Integumenta: Yes (CELLULITIS RT LOWER LEG) Blood Transfusions History of Blood Disorders: No Adverse Reaction to a Blood Tr: No (HAS HAD BLOOD WITH NO REACTION (CHILD )) Family Medical History Significant Family History: Cancer (Sister - Breast CA, Father unsure what type ), Hypertension (grandfather) Constitutional: No chills, No diaphoresis; dizziness EENTM: vision loss; No blurred vision, No double vision, No mouth swelling, No epistaxis, No throat swelling Respiratory: No cough, No dyspnea on exertion Cardiovascular: No chest pain, No edema, No palpitations Gastrointestinal: No abdominal pain, No dysphagia, No jaundice Genitourinary: dysuria, frequency; No hematuria Musculoskeletal: joint pain, joint swelling, muscle stiffness Skin: No lesions, No lumps Psychiatric/Neurological: Headache; Denies Seizure, Denies Tremors, Denies Weakness pt denies any abnormal bleeding or bruising Physical Exam Vital Signs Vital Signs - First Documented 01/31/18 10:08 Temp 97.0 Pulse 82 Resp 18 B/P (MAP) 0/0 (0) Pulse Ox 97 O2 Delivery Room Air Capillary Refill : Less Than 3 Seconds General Appearance: No Apparent Distress, WD/WN Eyes: Bilateral Eye PERRL, Bilateral Eye EOMI HEENT: Pharynx Normal, Moist Mucous Membranes; No Scleral Icterus (L), No Scleral Icterus (R); Other (pt has hematoma on back of head) Neck: Full Range of Motion, Supple Respiratory: Chest Non Tender, Lungs Clear, Normal Breath Sounds, No Accessory Muscle Use, No Respiratory Distress Cardiovascular: Regular Rate, Rhythm, No Edema, No Murmur, Normal Peripheral Pulses Gastrointestinal: Normal Bowel Sounds, No Organomegaly, No Pulsatile Mass, Non Tender, Soft Back: No CVA Tenderness, No Vertebral Tenderness Extremity: Normal Capillary Refill, Normal Inspection, Normal Range of Motion, Non Tender, No Calf Tenderness, Other (right forearm laceration/skin tear covered with telfa dressing) Neurologic/Psychiatric: Alert, Oriented x3, No Motor/Sensory Deficits, Normal 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, 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 Skin: Normal Color, Warm/Dry Lymphatic: No Adenopathy (neck, axilla or groin) Data Review Labs Laboratory Tests 01/31/18 12:22: White Blood Count 21.5H, Red Blood Count 4.26L, Hemoglobin 13.1, Hematocrit 41, Mean Corpuscular Volume 96, Mean Corpuscular Hemoglobin 31, Mean Corpuscular Hemoglobin Concent 32, Red Cell Distribution Width 14.7H, Platelet Count 223, Mean Platelet Volume 10.1, Neutrophils (%) (Auto) 90H, Lymphocytes (%) (Auto) 5L , Monocytes (%) (Auto) 6, Eosinophils (%) (Auto) 0, Basophils (%) (Auto) 0, Neutrophils # (Auto) 19.3H, Lymphocytes # (Auto) 1.0, Monocytes # (Auto) 1.2H, Eosinophils # (Auto) 0.0, Basophils # (Auto) 0.0, Neutrophils % (Manual) 85, Lymphocytes % (Manual) 4, Monocytes % (Manual) 5, Eosinophils % (Manual) 0, Basophils % (Manual) 0, Band Neutrophils 6, Blood Morphology Comment NORMAL, Prothrombin Time 12.6, INR Comment 1.0, Activated Partial Thromboplast Time 21L , Sodium Level 144, Potassium Level 3.7, Chloride Level 109H, Carbon Dioxide Level 26, Anion Gap 9, Blood Urea Nitrogen 16, Creatinine 0.84, Estimat Glomerular Filtration Rate > 60, BUN/Creatinine Ratio 19, Glucose Level 150H, Calcium Level 9.3, Total Bilirubin 0.5, Aspartate Amino Transf (AST/SGOT) 18, Alanine Aminotransferase (ALT/SGPT) 20, Alkaline Phosphatase 64, Total Protein 6.4, Albumin 3.8 01/31/18 13:06: Urine Color YELLOW, Urine Clarity SLIGHTLY CLOUDY, Urine pH 6.5, Urine Specific [place] 1.015L, Urine Protein 1+H, Urine Glucose (UA) NEGATIVE, Urine Ketones NEGATIVE, Urine Nitrite POSITIVEH, Urine Bilirubin NEGATIVE, Urine Urobilinogen NORMAL, Urine Leukocyte Esterase 3+H, Urine RBC (Auto) 4+H, Urine RBC 5-10H, Urine WBC 50-100H, Urine Squamous Epithelial Cells 2-5, Urine Crystals NONE, Urine Bacteria MODERATEH, Urine Casts NONE, Urine Mucus NEGATIVE, Urine Culture Indicated YES Assessment/Plan Assessment/Plan Admission Diagonsis TBI Skull Fracture Skin Lac UTI Admission Status: Observation Assessment/Plan TBI Skull Fracture Skin Lac UTI Pt will be admitted overnight with neurochecks, secondary to TBI with skull fracture. Found to have UTI and is on IV ABX for that. Diet as tolerated, ambulate with assist. Pain control. SILVANO OLIVA DO Jan 31, 2018 16:34
[2018-01-31] MEDS: HYDROcodone/APAP 5 MG/325 MG (LORTAB) TAB PO PRN (22:07)
[2018-02-01] MEDS: HYDROcodone/APAP 5 MG/325 MG (LORTAB) TAB PO PRN (05:05)
[2018-02-01] MEDS: cefTRIAXone 1 GM/NS 50 ML IVPB IV SCH ×2 (10:07)
--- NOTE | 2018-02-01 10:17 | Discharge Inst-Surgical ---
Discharge Inst-Surgical Depart Medication/Instructions New, Converted or Re-Newed RX: Other (Pt needs to go to primary care, once Antibiotic chart released for UA to get correct ABX for UTI) Patient Instructions Follow up Appt: Make appointment for next 2-3 days with your primary care physician. Instructions: No lifting greater than 10 pounds. No strenuous activity. May shower in 24 hours or tub bath or soaking. No Smoking Skin/Wound Care: May remove bandages. Be careful washing your head at site of laceration. Keep bandage on arm for now and have primary care rewrap with non-stick dressing. Symptoms to Report: Appetite Changes, Extremity Discoloration, Numbness/Tingling, Swelling Increased , Bleeding Excessive, Eyesight Changes, Pain Increased, Urine Color Change, Constipation(Persistent), Fever over 101 degree F, Pain/Pressure in chest, Urinating Difficulty, Cough Up/Vomit Blood, Heart Beat Irreg/Pounding, Pain/ Pressure in jaw, Cramps in feet or legs, Lightheadedness, Pain/Pressure in shoulder, Diarrhea(Persistent), Memory Changes Suddenly, Questions/Concerns, Weight gain consecutive days, Dizziness/Fainting, Nausea/Vomiting, Shortness of Breath, Weight gain over 2 pounds If questions or concerns contact your physician Or seek help at emergency department. Activity Activity as Tolerated: Yes Driving Instructions: You May Drive Diet Discharge Diet: No Restrictions Diet After 24 Hours: Clear Liquid if Nauseous If Any Problems/Questions/Issu: Contact Your Physician, Go to Emergency Room Skin/Wound Care Infection Signs and Symptoms: Increased Redness, Foul Odor of Wound, Increased Drainage, Skin Itchy or Has a Rash, Increased Swelling, Temperature Above 101 F NANCY VERDIN DO Feb 01, 2018 10:17
--- NOTE | 2018-02-01 10:22 | Progress Note ---
Subjective Time Seen by Provider: 10:01 Subjective/Events-last exam Pt seen and examined, states headache almost gone...but it does hurt where she hit her head. No other neurological symptoms. Pt with no other complaints, tolerating diet. Review of Systems General: No Chills, No Night Sweats Pulmonary: No Dyspnea, No Cough Cardiovascular: No: Chest Pain, Orthopnea Gastrointestinal: No: Nausea, Vomiting Neurological: No: Weakness, Change in speech, Confusion Objective Exam Vital Signs Date Time Temp Pulse Resp B/P (MAP) Pulse Ox O2 Delivery O2 Flow Rate FiO2 02/01/18 08:00 97.8 82 16 97 Room Air 02/01/18 04:16 98.1 68 18 95 Room Air 02/01/18 00:48 98.0 75 20 97 Room Air 01/31/18 20:23 98.8 96 14 96 Room Air 01/31/18 16:00 97.8 95 14 97 Room Air 01/31/18 14:57 97.8 98 20 97 Room Air 01/31/18 13:39 0 0 0/0 0 I & O 02/01/18 07:00 Intake Total 500 ml Output Total 250 ml Balance 250 ml Capillary Refill : Less Than 3 Seconds General Appearance: No Apparent Distress, WD/WN HEENT: Pharynx Normal, Moist Mucous Membranes; No Scleral Icterus (L), No Scleral Icterus (R); Other (pt has hematoma on back of head) Neck: Full Range of Motion, Supple Respiratory: Chest Non Tender, Lungs Clear, Normal Breath Sounds, No Accessory Muscle Use, No Respiratory Distress Cardiovascular: Regular Rate, Rhythm, No Edema, No Murmur, Normal Peripheral Pulses Gastrointestinal: normal bowel sounds, non tender, soft Extremity: Normal Capillary Refill, Normal Inspection, Normal Range of Motion, Non Tender, No Calf Tenderness, Other (right forearm laceration/skin tear covered with telfa dressing) Neurologic/Psychiatric: Alert, Oriented x3, No Motor/Sensory Deficits, Normal Mood/Affect, 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-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 Norm as Tested Skin: Normal Color, Warm/Dry Lymphatic: No Adenopathy (neck, axilla or groin) Results Lab Laboratory Tests 01/31/18 12:22: White Blood Count 21.5H, Red Blood Count 4.26L, Hemoglobin 13.1, Hematocrit 41, Mean Corpuscular Volume 96, Mean Corpuscular Hemoglobin 31, Mean Corpuscular Hemoglobin Concent 32, Red Cell Distribution Width 14.7H, Platelet Count 223, Mean Platelet Volume 10.1, Neutrophils (%) (Auto) 90H, Lymphocytes (%) (Auto) 5L , Monocytes (%) (Auto) 6, Eosinophils (%) (Auto) 0, Basophils (%) (Auto) 0, Neutrophils # (Auto) 19.3H, Lymphocytes # (Auto) 1.0, Monocytes # (Auto) 1.2H, Eosinophils # (Auto) 0.0, Basophils # (Auto) 0.0, Neutrophils % (Manual) 85, Lymphocytes % (Manual) 4, Monocytes % (Manual) 5, Eosinophils % (Manual) 0, Basophils % (Manual) 0, Band Neutrophils 6, Blood Morphology Comment NORMAL, Prothrombin Time 12.6, INR Comment 1.0, Activated Partial Thromboplast Time 21L , Sodium Level 144, Potassium Level 3.7, Chloride Level 109H, Carbon Dioxide Level 26, Anion Gap 9, Blood Urea Nitrogen 16, Creatinine 0.84, Estimat Glomerular Filtration Rate > 60, BUN/Creatinine Ratio 19, Glucose Level 150H, Calcium Level 9.3, Total Bilirubin 0.5, Aspartate Amino Transf (AST/SGOT) 18, Alanine Aminotransferase (ALT/SGPT) 20, Alkaline Phosphatase 64, Total Protein 6.4, Albumin 3.8 01/31/18 13:06: Urine Color YELLOW, Urine Clarity SLIGHTLY CLOUDY, Urine pH 6.5, Urine Specific [place] 1.015L, Urine Protein 1+H, Urine Glucose (UA) NEGATIVE, Urine Ketones NEGATIVE, Urine Nitrite POSITIVEH, Urine Bilirubin NEGATIVE, Urine Urobilinogen NORMAL, Urine Leukocyte Esterase 3+H, Urine RBC (Auto) 4+H, Urine RBC 5-10H, Urine WBC 50-100H, Urine Squamous Epithelial Cells 2-5, Urine Crystals NONE, Urine Bacteria MODERATEH, Urine Casts NONE, Urine Mucus NEGATIVE, Urine Culture Indicated YES Microbiology 01/31/18 Urine Culture - Preliminary, Resulted Sent To [facility] Assessment/Plan Assessment/Plan Assessment/Plan TBI Skull Fracture Skin Lac UTI Pt had neurochecks and no changes noted. Will D/C her home. Pt received one dose of Rocephin and will get second for UTI before she is sent home. Pt must follow up with primary to make sure she is on correct ABX per antibiotic gram. Clinical Quality Measures DVT/VTE Risk/Contraindication: Risk Factor Score Per Nursin RFS Level Per Nursing on Admit: 4+=Very High NANCY VERDIN DO Feb 01, 2018 10:22
== END 2018-02-01 10:14 | disposition home or self-care (01) ==
LOC: EDUNIT# 09:58 → ER 10:00 → 4TH 12:47 → UNDOADMOB 12:47 → 4TH 14:41 → UNDODISOB 02-01 10:50
PROVIDERS: ADMIT Surgery; ATTEND Surgery
DX: S02.119A Unspecified fracture of occiput, initial encounter for closed fracture (principal); S51.811A Laceration without foreign body of right forearm, initial encounter; N39.0 Urinary tract infection, site not specified; R51 Headache; J44.9 Chronic obstructive pulmonary disease, unspecified; G35 Multiple sclerosis; W01.10XA Fall on same level from slipping, tripping and stumbling with subsequent striking against unspecified object, initial encounter; Y92.481 Parking lot as the place of occurrence of the external cause; Z88.1 Allergy status to other antibiotic agents
CPT/HCPCS: 36415; 70450; 72125; 73090; 73110; 80053; 81000; 85007; 85027; 85610; 85730; 87077; 87088; 87186; 96374; G0378

== ENCOUNTER 2018-02-08 11:56 | Outpatient (RCR) | payer MEDICARE, OTHER ==
[2018-02-07 10:22] VITALS: BP 0/0
[2018-02-07 10:30] VITALS: BP 0/0
--- NOTE | 2018-02-07 11:46 | Diagnostic Imaging Report ---
INDICATION: PICC line placement Comparison: 06/07/2013 Findings: Upright portable view of the chest is obtained. There is a new left PICC line present tip of which appears to be in the mid superior vena cava. There is no evidence of pneumothorax. Heart size and pulmonary vessels appear unremarkable. There is no pneumothorax, mediastinal widening or pleural fluid. Lungs are clear. IMPRESSION: Left PICC line appears to be in good position without evidence of pneumothorax or other acute abnormality in the chest. Dictated by: Dictated on workstation # [id number]
[~2018-02-08] VITALS: Ht 157.5 cm; Wt 65.8 kg
[~2018-02-08 11:56] MED LIST changes: +VANCOMYCIN 1 GM/NS 250 ML IVPB IV SCH; +VANCOMYCIN 1250 MG/NS 250 ML IVPB IV NR; +diphenhydrAMINE 50 MG/ML INJ (BENADRYL) IV SCH; +methylPREDNISolone 125 MG (Solu-MEDROL) VIAL IV SCH
[2018-02-08 12:00] VITALS: BP 0/0
[2018-02-09] MEDS ORDERED: TROUGH ORDER-PHARMACY XX NR (10:00)
[2018-02-13] MEDS ORDERED: HYDROcodone/APAP 5 MG/325 MG (LORTAB) TAB PO PRN (18:00)
[2018-02-13] MEDS ORDERED: DOCUSATE SODIUM 100 MG (COLACE) CAP PO SCH (21:00)
== END 2018-02-08 13:18 | disposition home or self-care (01) ==
LOC: SDC 11:56
DX: N10 Acute pyelonephritis (principal)
CPT/HCPCS: 36569; 71045; 76937; 96365

== ENCOUNTER 2018-02-13 13:08 | Emergency (ER) | payer MEDICARE, OTHER ==
[~2018-02-13] VITALS: Ht 157.5 cm; Wt 64.0 kg
[~2018-02-13 13:08] MED LIST changes: -VANCOMYCIN 1 GM/NS 250 ML IVPB IV SCH; -VANCOMYCIN 1250 MG/NS 250 ML IVPB IV NR; -diphenhydrAMINE 50 MG/ML INJ (BENADRYL) IV SCH; -methylPREDNISolone 125 MG (Solu-MEDROL) VIAL IV SCH
--- OUTSIDE RECORDS SUMMARY | 2018-02-13 13:13 | XMS REPORT | Clinical Summary ---
Author Author [facility] Organization [facility] Address Unknown Phone Unavailable Care Team Providers Care Childcare Provider Name Role Phone Heron Serrato MD PCP Source Comments Some departments are not documenting in the electronic medical record. If you do not see the information that you expected, contact Release of Information in the Health Information Management department at [phone] for further assistance in locating additional records.[facility] Allergies Active Allergy Reactions Severity Noted Date [...] PERTUSSIS VACCINE 10/14/1946 TETANUS VACCINE 1953 SHINGLES RECOMBINANT 1986 VACCINE (1 of 2) OSTEOPOROSIS SCREENING 2001 PNEUMONIA (PCV13/PPSV23) 2001 VACCINES (1 of 2 - PCV13) INFLUENZA VACCINE 05/15/2018 Results Not on filefrom Last 3 Months
[2018-02-13] MEDS ORDERED: HYDROcodone/APAP 5 MG/325 MG (LORTAB) TAB PO ONE (13:15)
--- NOTE | 2018-02-13 13:21 | ED Lower Extremity ---
General Stated Complaint: LEFT HIP PAIN Source: patient Exam Limitations: no limitations History of Present Illness Date Seen by Provider: Feb 13, 2018 Time Seen by Provider: 13:19 Initial Comments to ER with reports of a painful knot in the posterior left hip after an injection a few days ago. She arrives from home per EMS. She is currently receiving IV antibiotics for urinary tract infection via PICC line. The pain has been constant for one week, a bit worse today, so severe that she is unable to walk.pain is localized and nonradiating. She denies any falls. Onset: last week Severity: moderate Pain/Injury Location: left hip Allergies and Home Medications Allergies Coded Allergies: arformoterol (Verified Allergy, Intermediate, TREMORS, 06/14/16) azithromycin (Verified Allergy, Intermediate, RASH, 06/14/16) cefadroxil (Verified Allergy, Intermediate, RASH, 06/14/16) cephalexin (Verified Allergy, Intermediate, JAW PAIN, 06/14/16) levofloxacin (Verified Allergy, Intermediate, JOINT PAIN, 06/14/16) Penicillins (Verified Allergy, Unknown, 07/08/14) Sulfa (Sulfonamide Antibiotics) (Verified Allergy, Unknown, 07/08/14) albuterol (Verified Allergy, Unknown, 06/14/16) ciprofloxacin (Verified Allergy, Unknown, 07/08/14) erythromycin base (Verified Allergy, Unknown, 06/14/16) Uncoded Allergies: "CYCLINES" (Allergy, Unknown, 10/02/14) Home Medications No Active Prescriptions or Reported Meds Patient Home Medication List Home Medication List Reviewed: Yes Constitutional: see HPI EENTM: see HPI Respiratory: no symptoms reported Cardiovascular: no symptoms reported Genitourinary: no symptoms reported Musculoskeletal: see HPI Skin: no symptoms reported Psychiatric/Neurological: No Symptoms Reported Past Oylynpp-Ifrlsu-Llrsgr Hx Patient Social History Recent Hopitalizations: No Immunizations Up To Date Tetanus Booster (TDap): More than 5yrs Date of Pneumonia Vaccine: May 15, 2010 Date of Influenza Vaccine: May 31, 2016 Seasonal Allergies Seasonal Allergies: No Past Medical History Surgeries: Yes (LEFT WRIST FX-PLATE AND SCREWS) Adenoidectomy, Appendectomy, Gallbladder, Hysterectomy, Lumpectomy, Tonsillectomy Respiratory: Yes Pneumonia, COPD Cardiac: No Neurological: Yes (stated history of Multiple Sclerosis- diagnosed in 1980.) Multiple Sclerosis Reproductive Disorders: 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 Sexually Transmitted Disease: No HIV/AIDS: No Genitourinary: Yes (Interstitial cystitis) Gastrointestinal: No Musculoskeletal: Yes (FREQUENT FALLS) Fractures Endocrine: No HEENT: Yes (Cataracts removed) Cataract, Glaucoma Loss of Vision: Denies Hearing Impairment: Denies Cancer: No Psychosocial: No Integumentary: Yes (Paper thin skin) Blood Disorders: No Adverse Reaction/Blood Tranf: No (N/A) Family Medical History Cancer, Hypertension Physical Exam Vital Signs Vital Signs - First Documented 02/13/18 13:08 Temp 98.7 Pulse 98 Resp 14 B/P (MAP) 0/0 (0) Pulse Ox 100 O2 Delivery Nasal Cannula Capillary Refill : General Appearance: WD/WN, no apparent distress HEENT: PERRL/EOMI, normal ENT inspection Neck: non-tender, full range of motion Respiratory: no respiratory distress, no accessory muscle use Gastrointestinal: normal bowel sounds, non tender Hips: bilateral hip normal inspection, bilateral hip normal range of motion; left hip other (history of left hip there is a palpable quarter-sized nodule without overlying erythema or ecchymosis. This feels fairly deep) Legs: bilateral leg non-tender, bilateral leg normal inspection, bilateral leg normal range of motion Knees: bilateral knee non-tender, bilateral knee normal inspection, bilateral knee normal range of motion Ankles: bilateral ankle non-tender, bilateral ankle normal inspection, bilateral ankle normal range of motion Neurologic/Psychiatric: alert, normal mood/affect, oriented x 3 Skin: normal color, warm/dry Progress/Results/Core Measures Results/Orders My Orders Orders - NEEL OLSEN APRN Hydrocodone/Apap 5/325 Tablet (Lortab 5 (02/13/18 13:15) Pelvis With Left Hip 2-3 Views (02/13/18 13:21) Medications Given in ED Current Medications Medications Dose Ordered Sig/Clare Route Start Time Stop Time Status Last Admin Dose Admin Acetaminophen/ Hydrocodone Bitart 1 tab ONCE ONCE PO 02/13/18 13:15 02/13/18 13:16 DC 02/13/18 14:48 1 TAB Vital Signs/I&O 02/13/18 13:08 Temp 98.7 Pulse 98 Resp 14 B/P (MAP) 0/0 (0) Pulse Ox 100 O2 Delivery Nasal Cannula Departure Communication (Admissions) Time/Spoke to Admitting Phy: 14:55 patient would like to be admitted as she feels that she is unable to care for herself at home due to the severe pain in her hip.her sister who is of similar age has been staying with her but cannot continue to stay with her. Time/Spoke to Consulting Phy: 15:47 i discussed with her rn rehabilitation, she came down and visited with the patient. Patient does qualify for rehabilitation floor admission. We will admit to Dr. Solorio, consult Dr. South. Impression Primary Impression: intractable left hip pain Disposition: ADMITTED INPATIENT Condition: Stable Admissions Decision to Admit Reason: Admit from ER (General) Decision to Admit/Date: Feb 13, 2018 Time/Decision to Admit Time: 14:57 Departure-Patient Inst. Decision time for Depature: 14:42 Referrals: MIRIAN MUHAMMAD MD (PCP/Family) Primary Care Physician Patient Instructions: HEMATOMA Add. Discharge Instructions: 1. Take one of your hydrocodone that you should already have at home every 4-6 hours as needed for pain. This may constipate you so you should also take a stool softener like Colace once or twice a day. Scripts No Active Prescriptions or Reported Meds NEEL OLSEN APRN Feb 13, 2018 13:21
--- NOTE | 2018-02-13 14:39 | Diagnostic Imaging Report ---
INDICATION: Dizziness, fall, left hip pain. FINDINGS: An AP pelvis and two views of the left hip reveal osteoarthritic changes without fracture or dislocation. The obturator rings, symphysis, and SI joint are intact. There are substantial degenerative changes to the lumbar spine. IMPRESSION: No acute appearing abnormality. Dictated by: Dictated on workstation # [id number]
[2018-02-13 17:05] VITALS: BP 0/0
== END 2018-02-13 17:05 | disposition other institution (70) ==
LOC: EDUNIT# 13:08 → ER 13:09 → UNDOADMIN 15:00 → ER 17:05
DX: M25.552 Pain in left hip (principal); J44.9 Chronic obstructive pulmonary disease, unspecified; Z87.01 Personal history of pneumonia (recurrent); Z87.81 Personal history of (healed) traumatic fracture; Z90.89 Acquired absence of other organs; Z90.49 Acquired absence of other specified parts of digestive tract; Z90.710 Acquired absence of both cervix and uterus; Z88.1 Allergy status to other antibiotic agents; Z88.0 Allergy status to penicillin; Z88.2 Allergy status to sulfonamides; Z88.8 Allergy status to other drugs, medicaments and biological substances; Z95.828 Presence of other vascular implants and grafts
CPT/HCPCS: 36430

== ENCOUNTER 2018-02-13 15:00 | Inpatient (IN) | payer MEDICARE, OTHER ==
[~2018-02-13] VITALS: Ht 157.5 cm; Wt 66.3 kg
--- OUTSIDE RECORDS SUMMARY | 2018-02-13 16:39 | XMS REPORT | Clinical Summary ---
Author Author [facility] Organization [facility] Address Unknown Phone Unavailable Care Team Providers Care Top Frame Maker Name Role Phone Heron Serrato MD PCP Source Comments Some departments are not documenting in the electronic medical record. If you do not see the information that you expected, contact Release of Information in the Health Information Management department at [phone] for further assistance in locating additional records.[facility] Allergies Active Allergy Reactions Severity Noted Date [...]
[2018-02-13] MEDS ORDERED: CATHETER FLUSH 10 ML SYR IV PRN (18:00)
[2018-02-13] MEDS ORDERED: DAPTOmycin INJECTION 400 MG in NS (IVPB) 50 ML IV SCH (19:30)
--- NOTE | 2018-02-13 19:48 | Diagnostic Imaging Report ---
INDICATION: PICC line placement. COMPARISON: 02/07/2018. FINDINGS: Single frontal view of the chest is obtained. Heart size is mildly enlarged but unchanged. There is no central venous congestion. Left PICC line is again demonstrated which appears to be more shallow in position than on the prior study, the tip of which now projects over the aortic knob possibly within the distal left subclavian vein. However, it has a slightly unusual trajectory. The distal tip is not well seen. There is no pneumothorax. There is some increasing opacity at the left lung base possibly related to a developing pleural effusion. There is minimal atelectasis in the right mid lung. IMPRESSION: The left PICC line tip appears malpositioned, more proximal in position than on the prior study but is not well seen. Position of the distal tip is uncertain. Additionally, there is some developing pleural fluid on the left and some atelectasis in the right mid lung, new from the prior study. Report given to Dr. Solorio at 7:47 p.m. 02/13/2018/concepcion Dictated by: Dictated on workstation # [id number]
[2018-02-13] MEDS: DOCUSATE SODIUM 100 MG (COLACE) CAP PO SCH (21:17)
[2018-02-13] MEDS: HYDROcodone/APAP 5 MG/325 MG (LORTAB) TAB PO PRN (21:17)
[2018-02-13] MEDS: CATHETER FLUSH 10 ML SYR IV SCH (22:00)
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
[2018-02-14] MEDS: CATHETER FLUSH 10 ML SYR IV SCH ×3 (07:18→22:07)
[2018-02-14] MEDS: HYDROcodone/APAP 5 MG/325 MG (LORTAB) TAB PO PRN ×3 (07:25→22:05)
[2018-02-14] MEDS: DOCUSATE SODIUM 100 MG (COLACE) CAP PO SCH ×2 (08:37→21:00)
--- NOTE | 2018-02-14 08:39 | ST Cognitive Linguistic Eval ---
Speech Evaluation-General Medical Diagnosis Debility, Cystitis, UTI Onset Date: Feb 13, 2018 Therapy Diagnosis Therapy Diagnosis: Cognitive Linguistic Skills WNL Precautions Precautions/Isolations: Fall Prevention, Standard Precautions Referral Referring Physician: Dr. Silvano Solorio Reason for Referral: Evaluation/Treatment Cognitive Evaluation Medical History Cystitis Current History The patient was recently admitted to [facility] with a diagnosis of debility. Per patient, she was receiving IM injections for a recurrent UTI which resulted in a hematoma at the injection site. The patient stated she has been unable to ambulate due to the pain caused by the hematoma. Reviewed History: Yes Social History Home: Single Level (Ramp in garage; one stair in the front.) Current Living Status: Alone Speech PLF-Current Status Prior Level of Function The patient denied prior challenges with speech, language, or cognition. Subjective The patient was laying in bed upon entrance. The patient greeted the clinician and was agreeable to participation in the cognitive evaluation. Language Eval: Auditory Comprehends Simple Yes/No Ques: Functional Indent/Objects Multiple Hernandez: Functional Ident/Pics in Multiple Hernandez: Functional Follows 1-Step Commands: Functional Follows Complex Directions: Functional Follows General Conversations: Functional Language Eval: Verbal Language Completes Spontaneous Greeting: Functional Produces Auto, Serial Info: Functional Imitates Simple Words/Phrases: Functional Word Finding: Functional Requests Basic Needs: Functional States Basic Personal Info: Functional Expresses Complex Ideas: Functional Cognitive Patient Orientation The patient was independently oriented to self, location, month, day of week, and year. Objective Cognitive Domain Attention: WNL Memory: WNL Problem Solving: Functional Executive Functions: WNL Objective Impression The patient demonstrated cognitive linguistic skills within normal limits. Communication/Social Cognition Comprehension: 7 Expression: 7 Social Interaction: 7 Problem Solvin Memory: 7 Speech Patient Assess Expression of Ideas/Wants: Expression (4) Understanding Verbal Content: Understands (4) Brief Interview-Mental Status: Yes Repetition of Three Words: Three (3) Temporal Orientation: Year: Correct (3) Temporal Orientation: Month: Accurate within 5 days(2) Temporal Orientation: Day: Correct (1) Recall : Wear to say "Sock": Yes, no cue required (2) Recall : Color: Yes, no cue required (2) Recall : Bed: Yes, no cue required (2) Speech-Plan Treatment Plan Speech Therapy Treatment Plan: Discontinue ST No ST warranted. Frequency: Modified Program (IRF) (No ST warranted.) Estimated Hrs Per Day: Other (No ST warranted.) Rehab Potential: Good Safety Risks/Education Teaching Recipient: Patient Teaching Methods: Discussion Response to Teaching: Verbalize Understanding Education Topics Provided: Results, Recommendations, Plan of Care Time Speech Therapy Time In: 08:15 Speech Therapy Time Out: 08:30 Total Billed Time: 15 Billed Treatment Time 1, VASQUEZ SEGUNDO Feb 14, 2018 08:39
--- NOTE | 2018-02-14 08:54 | Diagnostic Imaging Report ---
INDICATION: PICC line placement. TIME OF EXAMINATION: 8:32 AM. COMPARISON: 02/13/2018. FINDINGS: The left upper extremity PICC line is again noted. The tip is difficult to locate but appears to be overlying the left innominate vein. The right hemidiaphragm is mildly elevated. There is no pneumothorax. The lungs are clear. The pulmonary vascularity is normal. No effusion is seen. IMPRESSION: The left upper extremity PICC line has its tip overlying the left innominate vein. No pneumothorax is seen. Dictated by: Dictated on workstation # [id number]
[2018-02-14] MEDS: FOSFOMYCIN 3 GM PACK (MONUROL) PO SCH (09:44)
[2018-02-14 09:48] LABS: BILIRUBIN,URINE NEGATIVE (NEGATIVE); CLARITY,URINE SLIGHTLY CLOUDY; COLOR,URINE YELLOW; GLUCOSE, URINE (UA) NEGATIVE (NEGATIVE); KETONES,URINE NEGATIVE (NEGATIVE); LEUKOCYTE ESTERASE ,URINE 3+ (NEGATIVE); NITRITE,URINE POSITIVE (NEGATIVE); PH,URINE 7 (5-9); PROTEIN,URINE NEGATIVE (NEGATIVE); UROBILINOGEN,URINE NORMAL (NORMAL)
[2018-02-14 10:03] LABS: RBC,URINE 0-2 /HPF
[2018-02-14 10:04] LABS: BACTERIA,URINE LARGE /HPF; SQUAMOUS EPITHELIAL CELL,UR RARE /HPF; WBC,URINE 25-50 /HPF
--- NOTE | 2018-02-14 10:56 | Physical Therapy Evaluation ---
PT Evaluation-General Medical Diagnosis Admission Date Feb 13, 2018 at 15:00 Medical Diagnosis: Debility, Cystitis, UTI Onset Date: Feb 13, 2018 Therapy Diagnosis Therapy Diagnosis: impaired mobility, endurance, strength Height/Weight Height (Feet): 5 Height (Inches): 2.00 Weight (Pounds): 146 Weight (Ounces): 1.0 Precautions Precautions/Isolations: Fall Prevention, Standard Precautions Referral Physician: Osmin Reason for Referral: Evaluation/Treatment Medical History Additional Medical History PAST MEDICAL HISTORY: Falls, interstitial cystitis. PAST SURGICAL HISTORY: Appendectomy, adenoidectomy, cholecystectomy, hysterectomy, lumpectomy, tonsillectomy. Reviewed History: Yes Social History Home: Single Level Current Living Status: Alone Entry Into Home: Ramp Prior/Core FIM Prior Level of Function Functional [place] Measure 0=Not Assessed/NA 4=Minimal Assistance 1=Total Assistance 5=Supervision or Setup 2=Maximal Assistance 6=Modified [place] 3=Moderate Assistance 7=Complete [place] Bed Mobility: 6 Transfers (B,C,W/C) (FIM): 6 Gait: 6 Patient reports that she ambulates with a 4 wheeled walker. PT Evaluation-Current Subjective Patient in bed pre tx, agrees to PT, has pain of 8/10 in right hip. Pt/Family Goals to be independent at home Objective Patient Orientation: Person, Place, Situation ROM/Strength ROM Lower Extremities WNL Strenght Lower Extremities NT - patient has pain with pressure on extremities, cannot test strength. Integumentary/Posture Integumentary Patient has a lot of swelling in right leg. Neuromuscular (Tone, Coordination, Reflexes) NT Sensory Hearing: Functional Sensation Right Lower Extremit: Intact Sensation Left Lower Extremity: Intact Sensation Lower Extremities Patient has no complaints of numbness or tingling in lower extremities. Transfers Functional [place] Measure 0=Not Assessed/NA 4=Minimal Assistance 1=Total Assistance 5=Supervision or Setup 2=Maximal Assistance 6=Modified [place] 3=Moderate Assistance 7=Complete IndependenceIRFPAI Quality Coding Scale 6 Independent with activity with or without an assistive device 5 Patient requires set up or clean up by helper. Patient completes activity by themselves 4 Supervision or touching assist (CGA). [place] provide cues , steadying assist 3 The helper provides less than half the effort to complete the activity 2 The helper provides more than half the effort to complete the activity 1 Dependent. The helper does all the effort to complete an activity 7 Patient refused to complete or attempt activity 9 The patient did not perform the activity before the current illness or injury 88 Not attempted due to Medical conditions or safety concerns Transfers (B, C, W/C) (FIM): 2 Scootin Rollin Roll Left to Right (QC): 4 Supine to/from Sit: 3 Sit to/from Stand: 4 bed t/f WC(FIM only if WC use): 4 Sit to Lying (QC): 2 Lying to Sitting/Side of Bed(Q: 3 Sit to Stand (QC): 4 Chair/Kor-hs-Gwwwm Xfer(QC): 4 Car Transfer (QC): 4 Patient performs rolling with SBA, scooting with max assist, supine to sit with min assist, sit to supine with mod assist, sit to stand with CGA, transfers with CGA, car transfer with CGA. Gait Does the Patient Walk?: Yes Mode of Locomotion: Walk Gait (FIM): 2 Walk 10 feet (QC): 4 Walk 50 ft with 2 Turns(QC): 4 Walking 10ft/uneven surface-QC: 4 Distance: 50'x3 Gait Level of Assist: 4 Gait Persons Needed: 1 Gait Assistive Device: FWW Comments/Gait Description Patient can ambulate 50' with a rolling walker with CGA, including 50' with at least 2 turns of 90 degrees and 10' over an uneven surface. Patient ambulates very slowly but steady. Wheelchair Training Does the Pt Use a Wheelchair?: No Stairs Stairs (FIM): 1 #of Steps: 1 Level of Assist: 4 1 Step (curb) (QC): 4 4 Steps (QC): 88 12 Steps (QC): 88 Patient can go up and down 1 step using a rolling walker with CGA. Patient needs cues for safety and foot placement. Balance Sitting Static: Normal Sitting Dynamic: Normal Standing Static: Good Standing Dynamic: Good Picking up an Object (QC): 88 Assessment/Needs Patient has impaired mobility and endurance. She gets dizzy with transitions, especially supine <-> sit. Rehab Potential: Fair PT Short Term Goals Short Term Goals Time Frame: Feb 21, 2018 Transfers (B,C,W/C) (FIM): 4 Gait (FIM): 2 Gait Distance Comment: 100' Gait Level of Assist: 5 Gait Assistive Device: FWW PT Scabbler Goals Scabbler Goals PT [facility] Goals Time Frame: Mar 07, 2018 Transfers (B,C,W/C) (FIM): 5 Sit to Lying (QC): 4 Lying-Sitting on Side/Bed(QC): 4 Sit to Stand (QC): 4 Rollin Roll Left to Right (QC): 4 Chair/Ksk-ki-Yrzrl Xfer(QC): 4 Car Transfer (QC): 4 Gait (FIM): 5 Distance: 150' Walk 10 feet (QC): 4 Walk 10ft-Uneven Surface(QC): 4 Walk 50ft with 2 Turns (QC): 4 Walk 150 ft (QC): 4 Gait Level of Assist: 5 Stairs (FIM): 2 # of Steps: 4 1 Step (curb) (QC): 4 4 Steps (QC): 4 Stairs Level Of Assist: 5 PT Plan Problem List Problem List: Activity Tolerance, Functional Strength, Safety, Balance, Gait, Transfer, Bed Mobility, ROM Treatment/Plan Treatment Plan: Continue Plan of Care Treatment Plan: Bed Mobility, Education, Functional Activity [place], Functional Strength, Group Therapy, Gait, Safety, Therapeutic Exercise, Transfers Treatment Duration: Mar 07, 2018 Frequency: At least 5 of 7 days/Wk (IRF) Estimated Hrs Per Day: 1.5 hours per day Patient and/or Family Agrees t: Yes Safety Risks/Education Patient Education: Gait Training, Transfer Techniques, Steps, Correct Positioning, Safety Issues Teaching Recipient: Patient Teaching Methods: Demonstration, Discussion Response to Teaching: Reinforcement Needed Discharge Recommendations Plan Patient will perform bed mobility and transfer training, balance and endurance training, functional strengthening, stair training, gait training, and education , to improve functional mobility and independence at home. Therapy D/C Recommendations: Assisted Living, Home w/ Family Support Time/GCodes Time In: 1000 Time Out: 1100 Total Billed Treatment Time: 60 Total Billed Treatment 1 visit EVM 30' FA 15' GT 15' GILMAR REYNA PT Feb 14, 2018 10:56
--- NOTE | 2018-02-14 11:28 | PM&R Post Admission Assessment ---
Post Admission Physician Asses Date seen by provider: Feb 14, 2018 Time seen by provider: 08:20 Admisison Dx: (1) Hip pain, left Status: Acute The preadmission screen agrees with the post admission assessment that the patient is a good candidate for inpatient rehabilitation. The patient will have a comprehensive program of inpatient rehabilitation with a goal of maximizing level of functional independence prior to discharge home with HHC and sister. The patient will have PT/OT ninety minutes per day, each discipline, five days a week for 7 days for gait, strengthening, conditioning, balance, ADLs, any patient/family/caregiver training as necessary. Speech therapy to do cognitive assessment and treat as indicated. Rehabilitation nursing to assist with bowel, bladder, skin, wound care, medication administration, pain management. Steel Die Press Set Up Operator to assist with discharge planning, community reentry. SCD's for DVT prophylaxis. She appears to be well motivated to participate in three hours of therapy a day. She should be able to tolerate three hours of therapy a day from a medical standpoint. She should benefit from the three hours of therapy a day. She has a reasonable discharge plan, reasonable discharge rehabilitation goals and a supportive family. She has various comorbidities that need to be closely monitored with medications and treatments adjusted on a daily basis as needed. These include: Recuurent falls Skull fracture Chronic cystitis Recurrent UTIS Mild atelectasis Barriers to discharge for this patient who had been independent prior to this are for her to be modified independent to supervision for ADLs and mobility skills prior to discharge home with HHC and sister so as to lessen the burden of the caregivers. Risks for this patient include: 1. Fall 2. Fracture 3. DVT 4. Pulmonary embolism 5. Wound infection 6. Skin breakdown 7. Contractures 8. Poorly controlled pain 9. Urinary retention 10. Recurrent UTIs 11. Respiratory infection 12. Aspiration . Estimated Length of Stay: 7 days Prognosis: Rehab prognosis appears good for goal of discharge home with HHC and sister modified independent to supervision for ADLs and mobility skills. [facility] code 15 Etiologic DX Left hip pain General: Alert, Oriented X3, Cooperative, No Acute Distress HEENT: Atraumatic, PERRLA, EOMI, Mucous Memb Moist/[place] Neck: Supple, No JVD Lungs: Clear to Auscultation Heart: Regular Rate Abdomen: Normal Bowel Sounds, Soft, No Tenderness Extremities: Other (Tenderness over left gomez scar from prior skin tear) Neuro: Other (Generalized weakness and left buttuck pain/tendereness from IM Injection of antibiotic) NANCY RICE MD Feb 14, 2018 11:28
--- NOTE | 2018-02-14 12:29 | Occupational Therapy Eval ---
OT Evaluation-General/PLF Medical Diagnosis Admission Date Feb 13, 2018 at 15:00 Medical Diagnosis: Debility, Cystitis, UTI Onset Date: Feb 13, 2018 Therapy Diagnosis Therapy Diagnosis: decr self care, weakness, decr funct mobility, decr activity luis Height/Weight Height (Feet): 5 Height (Inches): 2.00 Weight (Pounds): 146 Weight (Ounces): 1.0 Precautions Precautions/Isolations: Fall Prevention, Standard Precautions Safety Interventions: None Referral Physician: Osmin Referral Reason: Evaluation/Treatment Medical History Additional Medical History Recurrent interstitial cystitis. Pt reports that she doesn't routinely take any medications, even vitamins. L wrist fx with plate and screws. Current History Admitted through ED with frequent falls, difficulty walking, soreness L buttock. Pt fell a couple of weeks ago and had skull fx. Reviewed History: Yes Social History Home: Single Level Current Living Status: Alone Entry Into Home: Ramp ADL-Prior Level of Function ADL PLOF Comments Pt reported that she has been able to manage all of her basic self care needs and home care tasks. Uses BSC over toilet at home. 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 She has a w/c and FWW at home. She reported that she is in the process of selling her home and plans to move to independent living at [facility] in [place]. 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 Rated pain 8/10 but said that it was improved from 10/10. She said that walking to the bathroom with OT increased her L hip pain. Pt reported that she did not intend to be here through the weekend. Appearance Alert, cooperative Mental Status/Objective Patient Orientation: Person, Place, Time, Situation Attachments: Saline Lock Current Glasses/Contacts: No Hearing Aids: No Dentures/Partials: No Hand Dominance: Right Upper Extremity ROM Grossly WFL bilat Upper Extremity Strength grossly 4/5 bilat. Pt is very protective of arms and legs from touch ADL-Treatment ADL-Current Pt was able to move legs to sit up to EOB, using bedrail. She needed cues and couple attempts, min assist to get up from EOB and walk CGA, FWW to bathroom. CGA getting on and off toilet and when managing clothing and hygiene. CGA at sink to wash hands. Walked back to room and got into bed mod assist, requesting help to lift legs. Setup to eat lunch. Pt left up in bed, all needs met. Functional [place] Measure 0=Not Assessed/NA 4=Minimal Assistance 1=Total Assistance 5=Supervision or Setup 2=Maximal Assistance 6=Modified [place] 3=Moderate Assistance 7=Complete IndependenceIRFPAI Quality Coding Scale 6 Independent with activity with or without an assistive device 5 Patient requires set up or clean up by helper. Patient completes activity by themselves 4 Supervision or touching assist (CGA). [place] provide cues , steadying assist 3 The helper provides less than half the effort to complete the activity 2 The helper provides more than half the effort to complete the activity 1 Dependent. The helper does all the effort to complete an activity 7 Patient refused to complete or attempt activity 9 The patient did not perform the activity before the current illness or injury 88 Not attempted due to Medical conditions or safety concerns Eating (FIM): 5 (setup to open packages. Able to feed self without AD.) Eating (QC): 5 Grooming (FIM): 4 (CGA standing at sink to wash and dry hands, FWW) Oral Hygiene (QC): 4 Toileting (FIM): 4 (CGA standing to manage clothing and hygiene. FWW. BSC over toilet) Toileting Hygiene (QC): 4 Toilet/Commode Transfer (FIM): 4 (CGA getting on and off BSC over toilet, grab bar, FWW) Toilet Transfer (QC): 4 Education OT Patient Education: Modified ADL techniques, Purpose of tx/functional activities, Rehab process, Transfer techniques, Use of adapted equipment Teaching Recipient: Patient Teaching Methods: Discussion Response to Teaching: Verbalize Understanding, Return Demonstration OT Short Term Goals Short Term Goals Time Frame: Feb 21, 2018 Toileting(FIM): 5 Toilet/Commode Transfer(FIM): 5 Additional Short Term Goals: 1-Demonstrate ADL Tasks, 2-Verbalize Understanding , 3-ImproveStrength/Hawa 1=Demonstrate adherence to instructed precautions during ADL tasks. 2=Patient will verbalize/demonstrate understanding of assistive devices/ modifications for ADL. 3=Patient will improve strength/tolerance for activity to enable patient to perform ADL's. OT Owner Professional Engineer Goals Nursing Home Goals Time Frame: Mar 03, 2018 Eating (FIM): 7 Eating (QC): 6 Groomin Oral Hygiene (QC): 6 Bathing(FIM): 6 Shower/Bathe Self (QC): 6 Upper Body Dressing(FIM): 6 Upper Body Dressing (QC): 6 Lower Body Dressing(FIM): 6 Lower Body Dressing (QC): 6 On/Off Footwear (QC): 6 Toileting(FIM): 6 Toileting Hygiene (QC): 6 Toilet/Commode Transfer(FIM): 6 Toilet/Commode Transfer (QC): 6 Shower Transfer(FIM): 6 Additional Goals: 1-Demonstrate ADL Tasks, 2-Verbalize Understanding, 3- ImproveStrength/Hawa 1=Demonstrate adherence to instructed precautions during ADL tasks. 2=Patient will verbalize/demonstrate understanding of assistive devices/ modifications for ADL. 3=Patient will improve strength/tolerance for activity to enable patient to perform ADL's. OT Education/Plan Problem List/Assessment Assessment: Decreased Activ Tolerance, Decreased UE Strength, Dependent Transfers, Impaired Bed Mobility, Impaired Self-Care Skills Pt would benefit from skilled OT to increase her independence in basic self care to allow her to safely return to her home to live alone Discharge Recommendations Plan/Recommendations: Continue POC Treatment Plan/Plan of Care Treatment,Training & Education: Yes Patient would benefit from OT for education, treatment and training to promote independence in ADL's, mobility, safety and/or upper extremity function for ADL' s. Plan of Care: ADL Retraining, Functional Mobility, Group Exercise/Act as Ind ( education, exercise, socialization, activity tolerance, functional activities) Treatment Duration: Mar 03, 2018 Frequency: At least 5 of 7 days/Wk (IRF) Estimated Hrs Per Day: 1.5 hours per day Rehab Potential: Fair Time/GCodes Start Time: 11:00 Stop Time: 11:45 Total Time Billed (hr/min): 45 Billed Treatment Time visit, 15 minutes evaluation moderate intensity, 30 minutes ADL SAMMIE ARTIS OT Feb 14, 2018 12:29
--- NOTE | 2018-02-14 14:17 | Physical Therapy Daily Note ---
PT Daily Note-Current Subjective Patient in therapy gym pre tx, agrees to PT, has pain of 8/10 in right hip. Appearance Patient in bed post tx with nurse call, phone, tray, all needs met. Mental Status Patient Orientation: Person, Place, Situation Transfers Functional [place] Measure 0=Not Assessed/NA 4=Minimal Assistance 1=Total Assistance 5=Supervision or Setup 2=Maximal Assistance 6=Modified [place] 3=Moderate Assistance 7=Complete IndependenceIRFPAI Quality Coding Scale 6 Independent with activity with or without an assistive device 5 Patient requires set up or clean up by helper. Patient completes activity by themselves 4 Supervision or touching assist (CGA). [place] provide cues , steadying assist 3 The helper provides less than half the effort to complete the activity 2 The helper provides more than half the effort to complete the activity 1 Dependent. The helper does all the effort to complete an activity 7 Patient refused to complete or attempt activity 9 The patient did not perform the activity before the current illness or injury 88 Not attempted due to Medical conditions or safety concerns Transfers (B, C, W/C) (FIM): 2 Scootin Rollin Supine to/from Sit: 3 Sit to/from Stand: 4 Bed to/from Chair: 4 Patient needs assist with both legs getting into bed. Gait Training Gait (FIM): 1 Distance: 10' Gait Level of Assist: 4 Gait Persons Needed: 1 Gait Assistive Device: FWW Patient ambulated 10' from her wheelchair to the NuStep. She needed min assist for sit to stand. Exercises NuStep Minutes: 5 NuStep Workload: 4 Treatments Patient refused to continue after 5 min on the NuStep. She reported being "shaky" all over and states that "since coming to rehab I have lost everything I gained the last 2 days". It was explained to patient that we would not make her do anything that she could not handle and that we would take things slow at first but we were required to get a certain number of minutes of therapy for rehab. Patient responded that she didn't know if she could do that many minutes but she would do what she could do and no more. Reported this to social welfare administrator and they continued this conversation with her. Patient was taken back to her room in wheelchair and transferred back to bed with nurse call , phone, tray. Patient continued to need min assist for sit to stand. Assessment Current Status: Poor Progress Decline in mobility, poor motivation. PT Short Term Goals Short Term Goals Time Frame: Feb 21, 2018 Transfers (B,C,W/C) (FIM): 4 Gait (FIM): 2 Gait Distance Comment: 100' Gait Level of Assist: 5 Gait Assistive Device: FWW PT Chcf Goals Locksmith Helper Goals PT Locksmith Helper Goals Time Frame: Mar 07, 2018 Transfers (B,C,W/C) (FIM): 5 Sit to Lying (QC): 4 Lying-Sitting on Side/Bed(QC): 4 Sit to Stand (QC): 4 Rollin Roll Left to Right (QC): 4 Chair/Mgr-rj-Ddlyd Xfer(QC): 4 Car Transfer (QC): 4 Gait (FIM): 5 Distance: 150' Walk 10 feet (QC): 4 Walk 10ft-Uneven Surface(QC): 4 Walk 50ft with 2 Turns (QC): 4 Walk 150 ft (QC): 4 Gait Level of Assist: 5 Stairs (FIM): 2 # of Steps: 4 1 Step (curb) (QC): 4 4 Steps (QC): 4 Stairs Level Of Assist: 5 PT Plan Problem List Problem List: Activity Tolerance, Functional Strength, Safety, Balance, Gait, Transfer, Bed Mobility, ROM Treatment/Plan Treatment Plan: Continue Plan of Care Treatment Plan: Bed Mobility, Education, Functional Activity [place], Functional Strength, Group Therapy, Gait, Safety, Therapeutic Exercise, Transfers Treatment Duration: Mar 07, 2018 Frequency: At least 5 of 7 days/Wk (IRF) Estimated Hrs Per Day: 1.5 hours per day Patient and/or Family Agrees t: Yes Safety Risks/Education Patient Education: Gait Training, Transfer Techniques, Correct Positioning, Safety Issues Teaching Recipient: Patient Teaching Methods: Demonstration, Discussion Response to Teaching: Reinforcement Needed Time/GCodes Time In: 1330 Time Out: 1350 Total Billed Treatment Time: 20 Total Billed Treatment 1 visit FA Evette' GILMAR REYNA PT Feb 14, 2018 14:17
--- NOTE | 2018-02-14 14:46 | Occupational Ther Daily Note ---
OT Current Status-Daily Note Subjective Pt seen in room, up in bed, agreeable to OT. Reported that she was incontinent of stool over lunch. Appearance Alert, cooperative Mental Status/Objective Functional [place] Measure 0=Not Assessed/NA 4=Minimal Assistance 1=Total Assistance 5=Supervision or Setup 2=Maximal Assistance 6=Modified [place] 3=Moderate Assistance 7=Complete [place] ADL-Treatment Functional [place] Measure 0=Not Assessed/NA 4=Minimal Assistance 1=Total Assistance 5=Supervision or Setup 2=Maximal Assistance 6=Modified [place] 3=Moderate Assistance 7=Complete IndependenceIRFPAI Quality Coding Scale 6 Independent with activity with or without an assistive device 5 Patient requires set up or clean up by helper. Patient completes activity by themselves 4 Supervision or touching assist (CGA). [place] provide cues , steadying assist 3 The helper provides less than half the effort to complete the activity 2 The helper provides more than half the effort to complete the activity 1 Dependent. The helper does all the effort to complete an activity 7 Patient refused to complete or attempt activity 9 The patient did not perform the activity before the current illness or injury 88 Not attempted due to Medical conditions or safety concerns Other Treatment Pt was able to swing legs over EOB and struggled with pushing up to sitting. She needed several attempts and trials with hand placement in different locations to come to stand at EOB, min assist. She walked with CGA to w/c, FWW. Pt was transported to gym and completed 12 minutes bilat UE exercise on arm bike set at 15W resistance, taking a couple brief recovery breaks. She also completed arc activity x 2 sets short extension and 1 set medium extension, to strengthen arms to help with getting up and down in bed. Care transferred to PT. Education OT Patient Education: Purpose of tx/functional activities Teaching Recipient: Patient Teaching Methods: Discussion Response to Teaching: Verbalize Understanding OT Short Term Goals Short Term Goals Time Frame: Feb 21, 2018 Toileting(FIM): 5 Toilet/Commode Transfer(FIM): 5 Additional Short Term Goals: 1-Demonstrate ADL Tasks, 2-Verbalize Understanding , 3-ImproveStrength/[place] 1=Demonstrate adherence to instructed precautions during ADL tasks. 2=Patient will verbalize/demonstrate understanding of assistive devices/ modifications for ADL. 3=Patient will improve strength/tolerance for activity to enable patient to perform ADL's. OT Director Custom Goals [facility] Goals Time Frame: Mar 03, 2018 Eating (FIM): 7 Eating (QC): 6 Groomin Oral Hygiene (QC): 6 Bathing(FIM): 6 Shower/Bathe Self (QC): 6 Upper Body Dressing(FIM): 6 Upper Body Dressing (QC): 6 Lower Body Dressing(FIM): 6 Lower Body Dressing (QC): 6 On/Off Footwear (QC): 6 Toileting(FIM): 6 Toileting Hygiene (QC): 6 Toilet/Commode Transfer(FIM): 6 Toilet/Commode Transfer (QC): 6 Shower Transfer(FIM): 6 Additional Goals: 1-Demonstrate ADL Tasks, 2-Verbalize Understanding, 3- ImproveStrength/Hawa 1=Demonstrate adherence to instructed precautions during ADL tasks. 2=Patient will verbalize/demonstrate understanding of assistive devices/ modifications for ADL. 3=Patient will improve strength/tolerance for activity to enable patient to perform ADL's. OT Education/Plan Problem List/Assessment Pt would benefit from skilled OT to increase her independence in basic self care to allow her to safely return to her home to live alone Discharge Recommendations Plan/Recommendations: Continue POC Treatment Plan/Plan of Care Patient would benefit from OT for education, treatment and training to promote independence in ADL's, mobility, safety and/or upper extremity function for ADL' s. Plan of Care: ADL Retraining, Functional Mobility, Group Exercise/Act as Ind ( education, exercise, socialization, activity tolerance, functional activities) Treatment Duration: Mar 03, 2018 Frequency: At least 5 of 7 days/Wk (IRF) Estimated Hrs Per Day: 1.5 hours per day Rehab Potential: Fair Time/GCodes Start Time: 12:45 Stop Time: 13:30 Total Time Billed (hr/min): 45 Billed Treatment Time visit, 45 minutes exercise SAMMIE ARTIS OT Feb 14, 2018 14:45
--- NOTE | 2018-02-14 14:56 | PM & R (SOAP) Progress Note ---
Subjective This was a face to face visit with the patient. Date Seen by Provider: Feb 14, 2018 Time Seen by Provider: 08:00 Subjective/Events-last exam Patient was seen in her room this AM Patient min to mod assist for transfers Adjusting well to unit Spoke with clinical Pharmacist Antibiotic switched to PO.Appreciate therapy notes Review of Systems Musculoskeletal: arm pain, leg pain Neurological: Weakness Objective Physician Exam Last Set of Vital Signs Vital Signs Date Time Temp Pulse Resp B/P (MAP) Pulse Ox O2 Delivery O2 Flow Rate FiO2 02/14/18 08:39 Room Air 02/14/18 06:00 97.9 79 20 99 Capillary Refill : I&O Intake and Output 02/14/18 00:00 Daily Weight Change Yes, Greater than 33 lbs General: Alert, Oriented X3, Cooperative, No Acute Distress HEENT: Atraumatic, PERRLA, EOMI, Mucous Memb Moist/[place] Neck: Supple, No JVD Lungs: Clear to Auscultation Heart: Regular Rate Abdomen: Normal Bowel Sounds, Soft, No Tenderness Extremities: Other Neuro: Other Results Lab Data Laboratory Tests 02/14/18 09:35: Urine Color YELLOW, Urine Clarity SLIGHTLY CLOUDY, Urine pH 7, Urine Specific [place] 1.015L, Urine Protein NEGATIVE, Urine Glucose (UA) NEGATIVE, Urine Ketones NEGATIVE, Urine Nitrite POSITIVEH, Urine Bilirubin NEGATIVE, Urine Urobilinogen NORMAL, Urine Leukocyte Esterase 3+H, Urine RBC (Auto) 2+H, Urine RBC 0-2, Urine WBC 25-50H, Urine Squamous Epithelial Cells RARE, Urine Crystals NONE, Urine Bacteria LARGEH, Urine Casts NONE, Urine Mucus NEGATIVE, Urine Culture Indicated YES Microbiology 02/14/18 Urine Culture - Preliminary, Resulted Sent To [facility] Assessment/Plan Assessment and Plan Bruising left buttock from IM injection Rocephin improving Multiple falls with hx of recent skull fracture Interstitial cystitis on antibiotic Plan Continue PT/OT Team Conference held earlier today-See report for full functional update and POC and ELOS (1) Hip pain, left Status: Acute Co-Morbidities that are continuing to impact the rehab process: (include details ) NANCY RICE MD Feb 14, 2018 14:56
--- NOTE | 2018-02-14 16:24 | Diagnostic Imaging Report ---
EXAMINATION: Portable AP Chest at 4:11 p.m. INDICATION: PICC line insertion. FINDINGS: As noted on the exam performed earlier today at 8:32 a.m., there is a left-sided PICC line in place. In the interval since the prior exam, the left-sided PICC line has been advanced. The line now overlies the mid/distal portion of the superior vena cava. The overall appearance of the chest is otherwise stable. Specifically, there is still no sign of a pneumothorax on the left. IMPRESSION: 1. The left-sided PICC line has been advanced, and the tip now overlies the mid/distal portion of the superior vena cava. 2. The overall appearance of the chest is otherwise stable. Dictated by: Dictated on workstation # [id number]
[2018-02-14 16:43] LABS: BASOPHILS % (AUTO) 0 % (0-10); EOSINOPHILS # (AUTO) 0.2 10^3/uL (0.0-0.3); EOSINOPHILS % (AUTO) 2 % (0-10); HEMATOCRIT 35 % (35-52); HEMOGLOBIN 11.2 G/DL (11.5-16.0); LYMPHOCYTES # (AUTO) 0.8 X 10^3 (1.0-4.0); LYMPHOCYTES % (AUTO) 8 % (12-44); MEAN CORPUSCULAR HEMOGLOBIN 31 PG (25-34); MEAN CORPUSCULAR HGB CONC 32 G/DL (32-36); MEAN CORPUSCULAR VOLUME 96 FL (80-99); MEAN PLATELET VOLUME 9.9 FL (7.4-10.4); MONOCYTES # (AUTO) 0.8 X 10^3 (0.0-1.0); MONOCYTES % (AUTO) 7 % (0-12); NEUTROPHILS # (AUTO) 9.2 X 10^3 (1.8-7.8); NEUTROPHILS % (AUTO) 83 % (42-75); PLATELET COUNT 260 10^3/uL (130-400); RED BLOOD COUNT 3.64 10^6/uL (4.35-5.85); RED CELL DISTRIBUTION WIDTH 13.9 % (10.0-14.5); WHITE BLOOD COUNT 11.1 10^3/uL (4.3-11.0)
[2018-02-14 17:17] LABS: ALANINE AMINOTRANSFERASE 11 U/L (0-55); ALBUMIN 3.3 GM/DL (3.2-4.5); ALKALINE PHOSPHATASE 136 U/L (40-136); BILIRUBIN,TOTAL 0.5 MG/DL (0.1-1.0); BUN/CREATININE RATIO 20; CALCIUM 8.5 MG/DL (8.5-10.1); CARBON DIOXIDE 24 MMOL/L (21-32); CHLORIDE 107 MMOL/L (98-107); CREATININE SERUM 0.81 MG/DL (0.60-1.30); GFR ESTIMATED > 60; GLUCOSE 121 MG/DL (70-105); POTASSIUM 3.3 MMOL/L (3.6-5.0); SODIUM 142 MMOL/L (135-145); TOTAL PROTEIN 5.6 GM/DL (6.4-8.2)
[2018-02-14] MEDS ORDERED: KCL 20 MEQ TAB (K-DUR) PO NR (19:01)
[2018-02-15] MEDS: CATHETER FLUSH 10 ML SYR IV SCH ×3 (06:36→22:26)
--- NOTE | 2018-02-15 08:09 | PM & R (SOAP) Progress Note ---
Subjective This was a face to face visit with the patient. Date Seen by Provider: Feb 15, 2018 Time Seen by Provider: 07:50 Subjective/Events-last exam Patient was seen in her room this AM Feeling better overall U/A abnormal and antibiotic being managed by Clinical Pharmacist.Patient min assist for transfers Objective Physician Exam Last Set of Vital Signs Vital Signs Date Time Temp Pulse Resp B/P (MAP) Pulse Ox O2 Delivery O2 Flow Rate FiO2 02/15/18 05:56 97.2 68 18 96 Room Air Capillary Refill : I&O Intake and Output 02/15/18 00:00 Intake Total 990 ml Output Total 925 ml Balance 65 ml Intake Oral 990 ml Output Urine Total 925 ml # Voids 3 # Bowel Movements 1 General: Alert, Oriented X3, Cooperative, No Acute Distress HEENT: Atraumatic, PERRLA, EOMI, Mucous Memb Moist/[place] Neck: Supple, No JVD Lungs: Clear to Auscultation Heart: Regular Rate Abdomen: Normal Bowel Sounds, Soft, No Tenderness Extremities: Other Neuro: Other Results Lab Data Laboratory Tests 02/14/18 09:35: Urine Color YELLOW, Urine Clarity SLIGHTLY CLOUDY, Urine pH 7, Urine Specific [place] 1.015L, Urine Protein NEGATIVE, Urine Glucose (UA) NEGATIVE, Urine Ketones NEGATIVE, Urine Nitrite POSITIVEH, Urine Bilirubin NEGATIVE, Urine Urobilinogen NORMAL, Urine Leukocyte Esterase 3+H, Urine RBC (Auto) 2+H, Urine RBC 0-2, Urine WBC 25-50H, Urine Squamous Epithelial Cells RARE, Urine Crystals NONE, Urine Bacteria LARGEH, Urine Casts NONE, Urine Mucus NEGATIVE, Urine Culture Indicated YES 02/14/18 16:35: White Blood Count 11.1H, Red Blood Count 3.64L, Hemoglobin 11.2L, Hematocrit 35 , Mean Corpuscular Volume 96, Mean Corpuscular Hemoglobin 31, Mean Corpuscular Hemoglobin Concent 32, Red Cell Distribution Width 13.9, Platelet Count 260, Mean Platelet Volume 9.9, Neutrophils (%) (Auto) 83H, Lymphocytes (%) (Auto) 8L , Monocytes (%) (Auto) 7, Eosinophils (%) (Auto) 2, Basophils (%) (Auto) 0, Neutrophils # (Auto) 9.2H, Lymphocytes # (Auto) 0.8L, Monocytes # (Auto) 0.8, Eosinophils # (Auto) 0.2, Basophils # (Auto) 0.0, Sodium Level 142, Potassium Level 3.3L, Chloride Level 107, Carbon Dioxide Level 24, Anion Gap 11, Blood Urea Nitrogen 16, Creatinine 0.81, Estimat Glomerular Filtration Rate > 60, BUN/ Creatinine Ratio 20, Glucose Level 121H, Calcium Level 8.5, Total Bilirubin 0.5 , Aspartate Amino Transf (AST/SGOT) 13, Alanine Aminotransferase (ALT/SGPT) 11, Alkaline Phosphatase 136, Total Protein 5.6L, Albumin 3.3 Microbiology 02/14/18 Urine Culture - Preliminary, Resulted Sent To [facility] Assessment/Plan Assessment and Plan Bruising left buttock from IM injection of Rocephin improving Multiple falls with hx of recent skull fracture UTI on antibiotics Plan Continue PT/OT and antibiotic Team Conference hed -see report for full functional update and POC and ELOS (1) Hip pain, left Status: Acute Co-Morbidities that are continuing to impact the rehab process: (include details ) NANCY RICE MD Feb 15, 2018 08:09
[2018-02-15] MEDS: DOCUSATE SODIUM 100 MG (COLACE) CAP PO SCH ×2 (08:40→21:00)
[2018-02-15] MEDS: HYDROcodone/APAP 5 MG/325 MG (LORTAB) TAB PO PRN ×3 (09:26→22:26)
--- NOTE | 2018-02-15 10:07 | Physical Therapy Daily Note ---
PT Daily Note-Current Subjective Pt. states she does not want to be here, Feels she is very tired and back to ground zero from exercises yesterday. This SPECIMEN TECHNICIAN explains the requirements for ARU and goals for DC. Pt. seemed more motivated to participate Pain Numeric Pain Scale: 9 Location: Left Location Body Site: Hip Pain Description: Ache Mental Status Patient Orientation: Normal For Age Transfers Functional [place] Measure 0=Not Assessed/NA 4=Minimal Assistance 1=Total Assistance 5=Supervision or Setup 2=Maximal Assistance 6=Modified [place] 3=Moderate Assistance 7=Complete IndependenceIRFPAI Quality Coding Scale 6 Independent with activity with or without an assistive device 5 Patient requires set up or clean up by helper. Patient completes activity by themselves 4 Supervision or touching assist (CGA). [place] provide cues , steadying assist 3 The helper provides less than half the effort to complete the activity 2 The helper provides more than half the effort to complete the activity 1 Dependent. The helper does all the effort to complete an activity 7 Patient refused to complete or attempt activity 9 The patient did not perform the activity before the current illness or injury 88 Not attempted due to Medical conditions or safety concerns Transfers (B, C, W/C) (FIM): 5 Scootin Rollin Supine to/from Sit: 5 Sit to/from Stand: 5 Gait Training Does the Patient Walk?: Yes Gait (FIM): 2 Distance (FIM): 4=[phone] ft (x2) Gait Level of Assist: 5 Gait Persons Needed: 1 Gait Assistive Device: FWW may soon be household exception Exercises Supine Ex: Bridging, Ankle pumps, Quad Set, Rolling, Glut sets, Heel Slides, Short Arc Quads, Scooting, Hip abd/add Supine Reps: 15 Seated Therapy Exercises: Ankle pumps, Sit to stand, Long arc quads, Hip flexion Seated Reps: 15 Treatments toileting with min to CGA, much concentration on bed TRFs simulating bed height to her at home as well as scooting self in bed etc. Pt. explained her set up at home Assessment Current Status: Good Progress pt. requests no to be touched causing it to be very difficult for AAROM PT Short Term Goals Short Term Goals Time Frame: Feb 21, 2018 Gait (FIM): 2 Gait Distance Comment: 100' Gait Level of Assist: 5 Gait Assistive Device: FWW PT Asbestos Cloth Inspector Goals Assisted Goals PT Assisted Goals Time Frame: Mar 07, 2018 Transfers (B,C,W/C) (FIM): 5 Sit to Lying (QC): 4 Lying-Sitting on Side/Bed(QC): 4 Sit to Stand (QC): 4 Rollin Roll Left to Right (QC): 4 Chair/Gtw-zz-Mmcoy Xfer(QC): 4 Car Transfer (QC): 4 Gait (FIM): 5 Distance: 150' Walk 10 feet (QC): 4 Walk 10ft-Uneven Surface(QC): 4 Walk 50ft with 2 Turns (QC): 4 Walk 150 ft (QC): 4 Gait Level of Assist: 5 Stairs (FIM): 2 # of Steps: 4 1 Step (curb) (QC): 4 4 Steps (QC): 4 Stairs Level Of Assist: 5 PT Plan Treatment/Plan Treatment Plan: Continue Plan of Care Treatment Plan: Bed Mobility, Education, Functional Activity [place], Functional Strength, Group Therapy, Gait, Safety, Therapeutic Exercise, Transfers Treatment Duration: Mar 07, 2018 Frequency: At least 5 of 7 days/Wk (IRF) Estimated Hrs Per Day: 1.5 hours per day Patient and/or Family Agrees t: Yes Safety Risks/Education Patient Education: Gait Training, Transfer Techniques, Correct Positioning, Disease Process, Safety Issues Teaching Recipient: Patient Teaching Methods: Demonstration, Discussion Response to Teaching: Verbalize Understanding, Return Demonstration, Reinforcement Needed Time/GCodes Time In: 900 Time Out: 1000 Total Billed Treatment Time: 60 Total Billed Treatment 1,FA35m,EX15m,GT10m G Codes Necessary: KAYLIE Mcnamara SPECIMEN TECHNICIAN Feb 15, 2018 10:07
--- NOTE | 2018-02-15 12:31 | Occupational Ther Daily Note ---
OT Current Status-Daily Note Subjective Pt seen in room, up in bed, agreeable to OT. No pain mentioned Appearance Alert, cooperative Mental Status/Objective Functional [place] Measure 0=Not Assessed/NA 4=Minimal Assistance 1=Total Assistance 5=Supervision or Setup 2=Maximal Assistance 6=Modified [place] 3=Moderate Assistance 7=Complete [place] ADL-Treatment Pt was able to get from supine to sit EOB by herself but with effort, using side rail. Sit to stand with CGA, bed raised up. Walked with CGA, FWW to bathroom, very slowly and small steps. She got on/off [facility] over toilet with SBA but CGA for managing clothing. Walked CGA, FWW to shower and stepped into shower and onto shower bench with CGA, pt educ for technique. Washed and dried all parts except feet, and CGA when standing to dry bottom.Provided with long handled sponge and she was able to wash feet and lower legs. Hand held shower, shower bench, grab bars. Walked with CGA, FWW back to [facility] to dress. Able to dress upper body with setup including bra but needed min assist with putting shoes on. Walked with CGA, FWW to stink and stood SBA at sink to comb hair and brush teeth, wash face. Pt walked back to sit EOB, cues for hand placement when sitting. Pt left sitting EOB, all needs met. Functional [place] Measure 0=Not Assessed/NA 4=Minimal Assistance 1=Total Assistance 5=Supervision or Setup 2=Maximal Assistance 6=Modified [place] 3=Moderate Assistance 7=Complete IndependenceIRFPAI Quality Coding Scale 6 Independent with activity with or without an assistive device 5 Patient requires set up or clean up by helper. Patient completes activity by themselves 4 Supervision or touching assist (CGA). [place] provide cues , steadying assist 3 The helper provides less than half the effort to complete the activity 2 The helper provides more than half the effort to complete the activity 1 Dependent. The helper does all the effort to complete an activity 7 Patient refused to complete or attempt activity 9 The patient did not perform the activity before the current illness or injury 88 Not attempted due to Medical conditions or safety concerns Grooming (FIM): 5 (SBA, standing at sink, FWW. teeth, hair, face) Oral Hygiene (QC): 4 (SBA) Bathing (FIM): 4 (Washed and dried all aprts except lower legs. provided with long handled sponge and she was able to do it. CGA when standing to dry bottom. Shower bench, grab bars,hand held shower. IV site covered) Shower/Bathe Self (QC): 3 Upper Body (FIM): 5 (setup, including bra) Upper Body Dressing (QC): 5 Lower Body Dressing (FIM): 4 (Able to get pants on, CGA when standing to pull them up. Help to get shoes on over heels. FWW) Lower Body Dressing (QC): 4 (CGA) On/Off Footwear (QC): 3 (Able to get shoes off but help to put them on) Toileting (FIM): 4 (CGA for clothing management) Toilet/Commode Transfer (FIM): 5 (SBA, getting up/down from BSC over toilet) Shower Transfer(FIM): 4 (CGA getting in and out of shower and on/off bench) Education OT Patient Education: Modified ADL techniques, Purpose of tx/functional activities, Safety issues, Transfer techniques Teaching Recipient: Patient Teaching Methods: Discussion Response to Teaching: Verbalize Understanding, Return Demonstration OT Short Term Goals Short Term Goals Time Frame: Feb 21, 2018 Toileting(FIM): 5 Toilet/Commode Transfer(FIM): 5 Additional Short Term Goals: 1-Demonstrate ADL Tasks, 2-Verbalize Understanding , 3-ImproveStrength/[place] 1=Demonstrate adherence to instructed precautions during ADL tasks. 2=Patient will verbalize/demonstrate understanding of assistive devices/ modifications for ADL. 3=Patient will improve strength/tolerance for activity to enable patient to perform ADL's. OT Retirement Goals Environmental Service Aide Goals Time Frame: Mar 03, 2018 Eating (FIM): 7 Eating (QC): 6 Groomin Oral Hygiene (QC): 6 Bathing(FIM): 6 Shower/Bathe Self (QC): 6 Upper Body Dressing(FIM): 6 Upper Body Dressing (QC): 6 Lower Body Dressing(FIM): 6 Lower Body Dressing (QC): 6 On/Off Footwear (QC): 6 Toileting(FIM): 6 Toileting Hygiene (QC): 6 Toilet/Commode Transfer(FIM): 6 Toilet/Commode Transfer (QC): 6 Shower Transfer(FIM): 6 Additional Goals: 1-Demonstrate ADL Tasks, 2-Verbalize Understanding, 3- ImproveStrength/[place] 1=Demonstrate adherence to instructed precautions during ADL tasks. 2=Patient will verbalize/demonstrate understanding of assistive devices/ modifications for ADL. 3=Patient will improve strength/tolerance for activity to enable patient to perform ADL's. OT Education/Plan Problem List/Assessment Pt would benefit from skilled OT to increase her independence in basic self care to allow her to safely return to her home to live alone Discharge Recommendations Plan/Recommendations: Continue POC Treatment Plan/Plan of Care Patient would benefit from OT for education, treatment and training to promote independence in ADL's, mobility, safety and/or upper extremity function for ADL' s. Plan of Care: ADL Retraining, Functional Mobility, Group Exercise/Act as Ind ( education, exercise, socialization, activity tolerance, functional activities) Treatment Duration: Mar 03, 2018 Frequency: At least 5 of 7 days/Wk (IRF) Estimated Hrs Per Day: 1.5 hours per day Rehab Potential: Fair Time/GCodes Start Time: 08:00 Stop Time: 09:00 Total Time Billed (hr/min): 60 Billed Treatment Time visit, 60 minutes ADL SAMMIE ARTIS OT Feb 15, 2018 12:30
--- NOTE | 2018-02-15 13:29 | Therapy Group Daily Note ---
Therapy Daily Group Note Patient Education Topic Other List Below (disease prevention and proper handwashing) Other/Notes Pt. participated in 15 of February lunch group PT OT session. Pt. was pleasant and social. Pts. sister joined her at lunch and brought her [facility] to celebrate the . Pts . sister was dressed in red white and blue and uncle Smith hat giving everyone a chuckle. Pts. shared their favorite 15 of February fireworks show memory as well as some of the family traditions they practiced. Citizen Of [place] history and 15 of February celebration tradition was shared by OT. Pt. ambulated to from group and required SBA to toilet and get in to bed after group. Call ovalle at hand Start Time: 12:00 Stop Time: 13:10 Total Billed Treatment Time: 70 Total Billed Treatment 1,GRP KAYLIE DELGADILLO COMPETITIVE SHOPPER Feb 15, 2018 13:28
--- NOTE | 2018-02-15 15:07 | Consultation-Hospitalist ---
HPI History of Present Illness: HPI/Chief Complaint tHE PATIENT IS AN 82-YEAR-OLD WHITE FEMALE who had presented to the emergency room and was admitted to the IRF. She has been having increasing difficulties with managing the activities of daily living. Her primary complaint is left hip pain. She attributes this to having had injections in her left buttocks repeatedly for years in the treatment of interstitial cystitis. She continues to live in her own home in [place]. She uses a walker and at times a wheelchair which she pedals. She drives her own car. She states she takes no medications on a regular basis. She normally sees Dr. Serrato for her outpatient needs. Date Seen 02/15/18 Attending Physician Silvano Solorio MD PCP Heron Serrato MD Referring Physician Date of Admission Feb 13, 2018 at 15:00 Home Medications & Allergies Home Medications Reviewed patient Home Medication Reconciliation performed by pharmacy medication reconciliations large animal husbandry technician and/or nursing. Patients Allergies have been reviewed. Allergies Allergies Coded Allergies arformoterol (Verified Allergy, Intermediate, TREMORS, 06/14/16) azithromycin (Verified Allergy, Intermediate, RASH, 06/14/16) cefadroxil (Verified Allergy, Intermediate, RASH, 06/14/16) cephalexin (Verified Allergy, Intermediate, JAW PAIN, 06/14/16) levofloxacin (Verified Allergy, Intermediate, JOINT PAIN, 06/14/16) Penicillins (Verified Allergy, Unknown, 07/08/14) Sulfa (Sulfonamide Antibiotics) (Verified Allergy, Unknown, 07/08/14) albuterol (Verified Allergy, Unknown, 06/14/16) ciprofloxacin (Verified Allergy, Unknown, 07/08/14) erythromycin base (Verified Allergy, Unknown, 06/14/16) vancomycin (Verified Adverse Reaction, Unknown, HIVES, 02/14/18) HAD ITCHING AROUND SCALP Uncoded Allergies "CYCLINES" ( Allergy, Unknown, 10/02/14) Past Vavmbzl-Espmvl-Kgmcys Hx Past Med/Social Hx: Reviewed Nursing Past Med/Soc Hx Patient Social History Smoking Status: Never a Smoker Recent Foreign Travel: No Contact w/other who traveled: No Recent Hopitalizations: Yes ([employer].) Recent Infectious Disease Expo: No Immunizations Up To Date Tetanus Booster (TDap): More than 5yrs Date of Pneumonia Vaccine: May 15, 2010 Date of Influenza Vaccine: May 31, 2016 Seasonal Allergies Seasonal Allergies: No Past Medical History Surgeries: Adenoidectomy, Appendectomy, Gallbladder, Hysterectomy, Lumpectomy, Tonsillectomy Neurological: Multiple Sclerosis : No Reproductive: No Sexually Transmitted Disease: No HIV/AIDS: No Hysterectomy Musculoskeletal: Fractures HEENT: Cataract, Glaucoma Loss of Vision: Denies Hearing Impairment: Denies History of Blood Disorders: No Adverse Reaction to Blood Zuniga: No (N/A) Family History Cancer, Hypertension Review of Systems Constitutional: see HPI EENTM: no symptoms reported Respiratory: no symptoms reported Cardiovascular: no symptoms reported Gastrointestinal: no symptoms reported Genitourinary: see HPI Musculoskeletal: muscle weakness, other (gait impairment) Skin: no symptoms reported, other (reports she has at times had black and blue aguilera on her left buttocks) Psychiatric/Neurological: No Symptoms Reported Physical Exam Physical Exam Vital Signs Capillary Refill : General Appearance: No Apparent Distress, WD/WN Eyes: Bilateral Eye Normal Inspection HEENT: Normal ENT Inspection Neck: Full Range of Motion, Normal Inspection, Non Tender, Supple, Carotid Bruit Respiratory: Chest Non Tender, Lungs Clear, Normal Breath Sounds, No Accessory Muscle Use, No Respiratory Distress Cardiovascular: Regular Rate, Rhythm, No Edema, No Gallop, No JVD, No Murmur, Normal Peripheral Pulses Back: Normal Inspection Extremity: Normal Capillary Refill, Normal Inspection, Normal Range of Motion, Non Tender, No Calf Tenderness, No Pedal Edema Neurologic/Psychiatric: Alert, Oriented x3 Skin: Normal Color, Warm/Dry Lymphatic: No Adenopathy Results Results/Procedures Labs Patient resulted labs reviewed. Assessment/Plan Assessment and Plan Assess & Plan/Chief Complaint 1.generalized debility. 2.likely inability to perform the activities of daily living. 3.minor confusion Clinical Quality Measures DVT/VTE Risk/Contraindication: Risk Factor Score Per Nursin RFS Level Per Nursing on Admit: 4+=Very High BRYNN SON MD Feb 15, 2018 15:07
[2018-02-16] MEDS: CATHETER FLUSH 10 ML SYR IV SCH ×3 (06:48→20:46)
[2018-02-16] MEDS: DOCUSATE SODIUM 100 MG (COLACE) CAP PO SCH ×2 (08:01→20:46)
[2018-02-16] MEDS: HYDROcodone/APAP 5 MG/325 MG (LORTAB) TAB PO PRN ×3 (09:38→20:45)
--- NOTE | 2018-02-16 10:05 | Occupational Ther Daily Note ---
OT Current Status-Daily Note Subjective Pt seen in room, up in bed, agreeable to OT. No pain mentioned. Pt reported that she thinks her UTI is back and nursing is aware. 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 Pt was agreeable to ADLs. Able to get out of bed slowly with SBA, with bed raised up and using HOB raised up and side rail. Walked slowly with SBA, FWW to bathroom and got on/off BSC over toilet with SBA, slowly. Managed clothing and hygiene with SBA. Walked slowly to chair with arms, able to get up and down with SBA, FWW but slow. Skilled cues to scoot to edge of chair. Pt was able to groom mod I and wash/dry with sponge bath at sink, with SBA when standing to wash win and bottom, balancing at sink. Dressed upper body with setup. Dressed lower body with SBA and pt education on use of dressing stick with pants. Pt walked back slowly to bed and was able to get both legs into bed herself and scoot in bed. Pt left up in bed, all needs met. Functional [place] Measure 0=Not Assessed/NA 4=Minimal Assistance 1=Total Assistance 5=Supervision or Setup 2=Maximal Assistance 6=Modified [place] 3=Moderate Assistance 7=Complete IndependenceIRFPAI Quality Coding Scale 6 Independent with activity with or without an assistive device 5 Patient requires set up or clean up by helper. Patient completes activity by themselves 4 Supervision or touching assist (CGA). [place] provide cues , steadying assist 3 The helper provides less than half the effort to complete the activity 2 The helper provides more than half the effort to complete the activity 1 Dependent. The helper does all the effort to complete an activity 7 Patient refused to complete or attempt activity 9 The patient did not perform the activity before the current illness or injury 88 Not attempted due to Medical conditions or safety concerns Eating (FIM): 7 (Able to open packages, feed herself) Eating (QC): 6 Grooming (FIM): 6 Oral Hygiene (QC): 6 Bathing (FIM): 5 (SBA) Shower/Bathe Self (QC): 4 Upper Body (FIM): 5 (setup) Upper Body Dressing (QC): 5 Lower Body Dressing (FIM): 5 (SBA, dressing stick, FWW) Lower Body Dressing (QC): 4 On/Off Footwear (QC): 6 (Slip on shoes) Toileting (FIM): 5 (SBA) Toileting Hygiene (QC): 4 Toilet/Commode Transfer (FIM): 5 (SBA, BSC over toilet) Toilet Transfer (QC): 4 Education OT Patient Education: Modified ADL techniques, Progress toward Goal/Update tx plan, Purpose of tx/functional activities, Transfer techniques, Use of adapted equipment Teaching Recipient: Patient Teaching Methods: Demonstration, Discussion Response to Teaching: Verbalize Understanding, Return Demonstration OT Short Term Goals Short Term Goals Time Frame: Feb 21, 2018 Toileting(FIM): 5 Toilet/Commode Transfer(FIM): 5 Additional Short Term Goals: 1-Demonstrate ADL Tasks, 2-Verbalize Understanding , 3-ImproveStrength/Hawa 1=Demonstrate adherence to instructed precautions during ADL tasks. 2=Patient will verbalize/demonstrate understanding of assistive devices/ modifications for ADL. 3=Patient will improve strength/tolerance for activity to enable patient to perform ADL's. OT Long-Term Goals Long-Term Goals Time Frame: Mar 03, 2018 Eating (FIM): 7 Eating (QC): 6 Groomin Oral Hygiene (QC): 6 Bathing(FIM): 6 Shower/Bathe Self (QC): 6 Upper Body Dressing(FIM): 6 Upper Body Dressing (QC): 6 Lower Body Dressing(FIM): 6 Lower Body Dressing (QC): 6 On/Off Footwear (QC): 6 Toileting(FIM): 6 Toileting Hygiene (QC): 6 Toilet/Commode Transfer(FIM): 6 Toilet/Commode Transfer (QC): 6 Shower Transfer(FIM): 6 Additional Goals: 1-Demonstrate ADL Tasks, 2-Verbalize Understanding, 3- ImproveStrength/Hawa 1=Demonstrate adherence to instructed precautions during ADL tasks. 2=Patient will verbalize/demonstrate understanding of assistive devices/ modifications for ADL. 3=Patient will improve strength/tolerance for activity to enable patient to perform ADL's. OT Education/Plan Problem List/Assessment Pt would benefit from skilled OT to increase her independence in basic self care to allow her to safely return to her home to live alone Discharge Recommendations Plan/Recommendations: Continue POC Treatment Plan/Plan of Care Patient would benefit from OT for education, treatment and training to promote independence in ADL's, mobility, safety and/or upper extremity function for ADL' s. Plan of Care: ADL Retraining, Functional Mobility, Group Exercise/Act as Ind ( education, exercise, socialization, activity tolerance, functional activities) Treatment Duration: Mar 03, 2018 Frequency: At least 5 of 7 days/Wk (IRF) Estimated Hrs Per Day: 1.5 hours per day Rehab Potential: Fair Time/GCodes Start Time: 08:30 Stop Time: 09:15 Total Time Billed (hr/min): 45 Billed Treatment Time visit, 45 minutes ADL SAMMIE ARTIS OT Feb 16, 2018 10:05
[2018-02-16] MEDS: FOSFOMYCIN 3 GM PACK (MONUROL) PO SCH (11:04)
--- NOTE | 2018-02-16 11:16 | Physical Therapy Daily Note ---
PT Daily Note-Current Subjective Pt laying Supine in bed upon arrival. Pt agrees to PT if given time to complete tasks. Pain Numeric Pain Scale: 10-Worst Possible Pain Location: Right, Left Location Body Site: Hip Pain Description: Sharp Comment: Pt has R side Sciatic pain & L side Hematoma. Mental Status Patient Orientation: Person, Place, Time, Situation Transfers Functional [place] Measure 0=Not Assessed/NA 4=Minimal Assistance 1=Total Assistance 5=Supervision or Setup 2=Maximal Assistance 6=Modified [place] 3=Moderate Assistance 7=Complete IndependenceIRFPAI Quality Coding Scale 6 Independent with activity with or without an assistive device 5 Patient requires set up or clean up by helper. Patient completes activity by themselves 4 Supervision or touching assist (CGA). [place] provide cues , steadying assist 3 The helper provides less than half the effort to complete the activity 2 The helper provides more than half the effort to complete the activity 1 Dependent. The helper does all the effort to complete an activity 7 Patient refused to complete or attempt activity 9 The patient did not perform the activity before the current illness or injury 88 Not attempted due to Medical conditions or safety concerns Scootin Supine to/from Sit: 5 Sit to/from Stand: 5 Sit to Lying (QC): 4 Sit to Stand (QC): 5 Weight Bearing Right Lower Extremity: Right Full Weight Bearing Left Lower Extremity: Left Full Weight Bearing Gait Training Does the Patient Walk?: Yes Distance (FIM): 3=150 ft Distance: 150' Walk 10 feet (QC): 5 Walk 50 ft with 2 Turns(QC): 5 Walk 150 ft (QC): 5 Gait Level of Assist: 5 Gait Persons Needed: 1 Gait Assistive Device: FWW Pt walks with a very slow thomas but is steady, no LOB. Pt scoots R foot as advancing, after first getting up but as pt continues to walk, this improves. Wheelchair Training Does the Pt Use a Wheelchair?: No Balance Picking up an Object (QC): 88 Special Test Comments Would not be safe to attempt at this time. Pt has resaw carriage operator at home to use. Exercises Seated Therapy Exercises: Ankle pumps, Long arc quads, Hip flexion, Kicking activity, Hip abd/add Seated Reps: 15 (2 sets of 15 reps) Treatments Pt transfers from Supine to EOB using bed rails/EDUCATIONAL SPEECH LANGUAGE CLINICIAN then EOB to standing using FWW at SBA. Pt uses restroom before leaving room for tx. Pt ambulates in hallway using FWW at close SBA. Pt takes short rest break during ambulation due to fatigue. Pt completes Seated Ex in Therapy Gym in chair. AIRCRAFT INSTRUMENT ENGINEER & pt go over Supine & Seated Ex HEP sheet for pt to continue to work on strengthening. Pt ambulates back to room to rest Supine in bed. Pt transfers from EOB to Supine at CGA/Min A to lift BLE into bed. AIRCRAFT INSTRUMENT ENGINEER assists scooting pt up in bed. Pt resting at end of tx with all needs met, including call light next to pt. Pt visiting with Nurse about Antibiotic at end of tx. Assessment Current Status: Good Progress Pt takes extended time to complete tasks although can complete w/o assistance from staff. PT Short Term Goals Short Term Goals Time Frame: Feb 21, 2018 Gait (FIM): 2 Gait Distance Comment: 100' Gait Level of Assist: 5 Gait Assistive Device: FWW PT Head Athletic Trainer Goals Detention Goals PT Head Athletic Trainer Goals Time Frame: Mar 07, 2018 Transfers (B,C,W/C) (FIM): 5 Sit to Lying (QC): 4 Lying-Sitting on Side/Bed(QC): 4 Sit to Stand (QC): 4 Rollin Roll Left to Right (QC): 4 Chair/Trv-na-Wxeoy Xfer(QC): 4 Car Transfer (QC): 4 Gait (FIM): 5 Distance: 150' Walk 10 feet (QC): 4 Walk 10ft-Uneven Surface(QC): 4 Walk 50ft with 2 Turns (QC): 4 Walk 150 ft (QC): 4 Gait Level of Assist: 5 Stairs (FIM): 2 # of Steps: 4 1 Step (curb) (QC): 4 4 Steps (QC): 4 Stairs Level Of Assist: 5 PT Plan Problem List Problem List: Activity Tolerance, Functional Strength, Gait, Transfer Treatment/Plan Treatment Plan: Continue Plan of Care Treatment Plan: Bed Mobility, Education, Functional Activity [place], Functional Strength, Group Therapy, Gait, Safety, Therapeutic Exercise, Transfers Treatment Duration: Mar 07, 2018 Frequency: At least 5 of 7 days/Wk (IRF) Estimated Hrs Per Day: 1.5 hours per day Patient and/or Family Agrees t: Yes Safety Risks/Education Patient Education: Gait Training, Transfer Techniques, Correct Positioning, Safety Issues Teaching Recipient: Patient Teaching Methods: Discussion Response to Teaching: Verbalize Understanding Time/GCodes Time In: 945 Time Out: 1045 Total Billed Treatment Time: 60 Total Billed Treatment 1, GT x2 (25m), FA (15m) & EX x2 (30m) G Codes Necessary: STEFANI Alonso AIRCRAFT INSTRUMENT ENGINEER Feb 16, 2018 11:16
--- NOTE | 2018-02-16 14:06 | Physical Therapy Daily Note ---
PT Daily Note-Current Subjective Pt laying Supine in bed upon arrival. Pt was just finishing tx with OT. Pt agrees to limited Supine Ex due to fatigue. Pain Numeric Pain Scale: 10-Worst Possible Pain Location: Right, Left Location Body Site: Hip Pain Description: Sharp Comment: Pt reports L side Hematoma & R side Sciatic pain. Mental Status Patient Orientation: Person, Place, Time, Situation Transfers Functional [place] Measure 0=Not Assessed/NA 4=Minimal Assistance 1=Total Assistance 5=Supervision or Setup 2=Maximal Assistance 6=Modified [place] 3=Moderate Assistance 7=Complete IndependenceIRFPAI Quality Coding Scale 6 Independent with activity with or without an assistive device 5 Patient requires set up or clean up by helper. Patient completes activity by themselves 4 Supervision or touching assist (CGA). [place] provide cues , steadying assist 3 The helper provides less than half the effort to complete the activity 2 The helper provides more than half the effort to complete the activity 1 Dependent. The helper does all the effort to complete an activity 7 Patient refused to complete or attempt activity 9 The patient did not perform the activity before the current illness or injury 88 Not attempted due to Medical conditions or safety concerns Weight Bearing Right Lower Extremity: Right Full Weight Bearing Left Lower Extremity: Left Full Weight Bearing Exercises Supine Ex: Ankle pumps, Quad Set, Glut sets, Heel Slides, Straight leg raise, Hip abd/add Supine Reps: 10 Treatments Pt completes Supine EX in bed with several rest breaks during Ex. Pt resting in bed at end of tx with all needs met, including call light next to pt. Assessment Current Status: Good Progress Pt fatigues quickly and needs frequent rest breaks. Pt reports pain during tx, Nurse gives pain med during tx. PT Short Term Goals Short Term Goals Time Frame: Feb 21, 2018 Gait (FIM): 2 Gait Distance Comment: 100' Gait Level of Assist: 5 Gait Assistive Device: FWW PT Color Grinder Goals Color Grinder Goals PT Nursing Home Goals Time Frame: Mar 07, 2018 Transfers (B,C,W/C) (FIM): 5 Sit to Lying (QC): 4 Lying-Sitting on Side/Bed(QC): 4 Sit to Stand (QC): 4 Rollin Roll Left to Right (QC): 4 Chair/Dyw-ee-Phwug Xfer(QC): 4 Car Transfer (QC): 4 Gait (FIM): 5 Distance: 150' Walk 10 feet (QC): 4 Walk 10ft-Uneven Surface(QC): 4 Walk 50ft with 2 Turns (QC): 4 Walk 150 ft (QC): 4 Gait Level of Assist: 5 Stairs (FIM): 2 # of Steps: 4 1 Step (curb) (QC): 4 4 Steps (QC): 4 Stairs Level Of Assist: 5 PT Plan Problem List Problem List: Activity Tolerance, Functional Strength, Safety, Balance, Gait Treatment/Plan Treatment Plan: Continue Plan of Care Treatment Plan: Bed Mobility, Education, Functional Activity [place], Functional Strength, Group Therapy, Gait, Safety, Therapeutic Exercise, Transfers Treatment Duration: Mar 07, 2018 Frequency: At least 5 of 7 days/Wk (IRF) Estimated Hrs Per Day: 1.5 hours per day Patient and/or Family Agrees t: Yes Safety Risks/Education Patient Education: Transfer Techniques, Correct Positioning, Safety Issues Teaching Recipient: Patient Teaching Methods: Discussion Response to Teaching: Verbalize Understanding Time/GCodes Time In: 1340 Time Out: 1400 Total Billed Treatment Time: 20 Total Billed Treatment 1, EX (20m) G Codes Necessary: STEFANI Alonso PTA Feb 16, 2018 14:06
--- NOTE | 2018-02-16 14:19 | Occupational Ther Daily Note ---
OT Current Status-Daily Note Subjective Pt seen in room, up at EOB, agreeable to OT. No pain mentioned except when she walks. Nursing notified. Appearance Alert, cooperative Mental Status/Objective Functional [place] Measure 0=Not Assessed/NA 4=Minimal Assistance 1=Total Assistance 5=Supervision or Setup 2=Maximal Assistance 6=Modified [place] 3=Moderate Assistance 7=Complete [place] ADL-Treatment Pt got up from EOB slowly without assistance and walked slowly about 20 feet to outside of her room, FWW, SBA. She did not think she would have strong enough legs to walk al the way to the gym so a w/c was obtained. After getting into chair, she was transported to gym, where she did 15 minutes bilat UE exercise with arm bike set at 15W resistance (increased time). She took a couple of brief recovery breaks and worked at a steady pace. To strengthen arms to help with transfers and ADLs. She needed to toilet so was transported back to her room. She got up from w/c with min assist and walked SBA, FWW to BSC over toilet. She was able to get on/off BSC and manage clothing/hygiene with SBA, FWW. She walked slowly to sink to wash her hands mod I, FWW for balance. She walked slowly to bed and was able to sit down to EOB without help. She requested help to put legs into bed and help to be pulled up in bed. Care transferred to PT. Functional [place] Measure 0=Not Assessed/NA 4=Minimal Assistance 1=Total Assistance 5=Supervision or Setup 2=Maximal Assistance 6=Modified [place] 3=Moderate Assistance 7=Complete IndependenceIRFPAI Quality Coding Scale 6 Independent with activity with or without an assistive device 5 Patient requires set up or clean up by helper. Patient completes activity by themselves 4 Supervision or touching assist (CGA). [place] provide cues , steadying assist 3 The helper provides less than half the effort to complete the activity 2 The helper provides more than half the effort to complete the activity 1 Dependent. The helper does all the effort to complete an activity 7 Patient refused to complete or attempt activity 9 The patient did not perform the activity before the current illness or injury 88 Not attempted due to Medical conditions or safety concerns Grooming (FIM): 6 (At sink, with FWW) Toileting (FIM): 5 Toilet/Commode Transfer (FIM): 5 Education OT Patient Education: Purpose of tx/functional activities, Safety issues Teaching Recipient: Patient Teaching Methods: Discussion Response to Teaching: Verbalize Understanding OT Short Term Goals Short Term Goals Time Frame: Feb 21, 2018 Toileting(FIM): 5 Toilet/Commode Transfer(FIM): 5 Additional Short Term Goals: 1-Demonstrate ADL Tasks, 2-Verbalize Understanding , 3-ImproveStrength/Hawa 1=Demonstrate adherence to instructed precautions during ADL tasks. 2=Patient will verbalize/demonstrate understanding of assistive devices/ modifications for ADL. 3=Patient will improve strength/tolerance for activity to enable patient to perform ADL's. OT Alf Goals Alf Goals Time Frame: Mar 03, 2018 Eating (FIM): 7 Eating (QC): 6 Groomin Oral Hygiene (QC): 6 Bathing(FIM): 6 Shower/Bathe Self (QC): 6 Upper Body Dressing(FIM): 6 Upper Body Dressing (QC): 6 Lower Body Dressing(FIM): 6 Lower Body Dressing (QC): 6 On/Off Footwear (QC): 6 Toileting(FIM): 6 Toileting Hygiene (QC): 6 Toilet/Commode Transfer(FIM): 6 Toilet/Commode Transfer (QC): 6 Shower Transfer(FIM): 6 Additional Goals: 1-Demonstrate ADL Tasks, 2-Verbalize Understanding, 3- ImproveStrength/Hawa 1=Demonstrate adherence to instructed precautions during ADL tasks. 2=Patient will verbalize/demonstrate understanding of assistive devices/ modifications for ADL. 3=Patient will improve strength/tolerance for activity to enable patient to perform ADL's. OT Education/Plan Problem List/Assessment Pt would benefit from skilled OT to increase her independence in basic self care to allow her to safely return to her home to live alone Discharge Recommendations Plan/Recommendations: Continue POC Treatment Plan/Plan of Care Patient would benefit from OT for education, treatment and training to promote independence in ADL's, mobility, safety and/or upper extremity function for ADL' s. Plan of Care: ADL Retraining, Functional Mobility, Group Exercise/Act as Ind ( education, exercise, socialization, activity tolerance, functional activities) Treatment Duration: Mar 03, 2018 Frequency: At least 5 of 7 days/Wk (IRF) Estimated Hrs Per Day: 1.5 hours per day Rehab Potential: Fair Time/GCodes Start Time: 12:55 Stop Time: 13:40 Total Time Billed (hr/min): 45 Billed Treatment Time visit, 15 minutes functional activity, 20 minutes exercise, 10 minutes ADL SAMMIE ARTIS OT Feb 16, 2018 14:19
--- NOTE | 2018-02-16 19:03 | PM & R (SOAP) Progress Note ---
Subjective This was a face to face visit with the patient. Date Seen by Provider: Feb 16, 2018 Time Seen by Provider: 17:30 Subjective/Events-last exam Patient was seen in her room this evening Patient SBA for transfers Improving overall with less pain complaints as well Objective Physician Exam Last Set of Vital Signs Vital Signs Date Time Temp Pulse Resp B/P (MAP) Pulse Ox O2 Delivery O2 Flow Rate FiO2 02/16/18 17:12 97.0 88 16 97 Room Air Capillary Refill : I&O Intake and Output 02/16/18 00:00 Intake Total 1300 ml Output Total 550 ml Balance 750 ml Intake Oral 1300 ml Output Urine Total 550 ml # Voids 5 # Bowel Movements 2 General: Alert, Oriented X3, Cooperative, No Acute Distress HEENT: Atraumatic, PERRLA, EOMI, Mucous Memb Moist/[place] Neck: Supple, No JVD Lungs: Clear to Auscultation Heart: Regular Rate Abdomen: Normal Bowel Sounds, Soft, No Tenderness Extremities: Other Neuro: Other Results Lab Data Laboratory Tests 02/14/18 09:35: Urine Color YELLOW, Urine Clarity SLIGHTLY CLOUDY, Urine pH 7, Urine Specific [place] 1.015L, Urine Protein NEGATIVE, Urine Glucose (UA) NEGATIVE, Urine Ketones NEGATIVE, Urine Nitrite POSITIVEH, Urine Bilirubin NEGATIVE, Urine Urobilinogen NORMAL, Urine Leukocyte Esterase 3+H, Urine RBC (Auto) 2+H, Urine RBC 0-2, Urine WBC 25-50H, Urine Squamous Epithelial Cells RARE, Urine Crystals NONE, Urine Bacteria LARGEH, Urine Casts NONE, Urine Mucus NEGATIVE, Urine Culture Indicated YES 02/14/18 16:35: White Blood Count 11.1H, Red Blood Count 3.64L, Hemoglobin 11.2L, Hematocrit 35 , Mean Corpuscular Volume 96, Mean Corpuscular Hemoglobin 31, Mean Corpuscular Hemoglobin Concent 32, Red Cell Distribution Width 13.9, Platelet Count 260, Mean Platelet Volume 9.9, Neutrophils (%) (Auto) 83H, Lymphocytes (%) (Auto) 8L , Monocytes (%) (Auto) 7, Eosinophils (%) (Auto) 2, Basophils (%) (Auto) 0, Neutrophils # (Auto) 9.2H, Lymphocytes # (Auto) 0.8L, Monocytes # (Auto) 0.8, Eosinophils # (Auto) 0.2, Basophils # (Auto) 0.0, Sodium Level 142, Potassium Level 3.3L, Chloride Level 107, Carbon Dioxide Level 24, Anion Gap 11, Blood Urea Nitrogen 16, Creatinine 0.81, Estimat Glomerular Filtration Rate > 60, BUN/ Creatinine Ratio 20, Glucose Level 121H, Calcium Level 8.5, Total Bilirubin 0.5 , Aspartate Amino Transf (AST/SGOT) 13, Alanine Aminotransferase (ALT/SGPT) 11, Alkaline Phosphatase 136, Total Protein 5.6L, Albumin 3.3 Microbiology 02/14/18 Urine Culture - Final, Complete Escherichia coli Assessment/Plan Assessment and Plan Painful left buttock s/p IM injection of antibiotic improving Multiple falls with HX of skull fracture UTI on antibiotics Plan Continue PT/OT Home on Tuesday02/18/18 with C Will review details with SW tomorrow (1) Hip pain, left Status: Acute Co-Morbidities that are continuing to impact the rehab process: (include details ) NANCY RICE MD Feb 16, 2018 19:03
--- NOTE | 2018-02-16 19:11 | Individualized Plan of Care ---
Individualized Plan of Care Rehab Nursing IPOC Order Admission Date Feb 13, 2018 at 15:00 Current Orders Orders Ambulate TID (02/13/18 17:50) Sequential Compression Device 08,20 (02/13/18 17:50) Dvt/Vte Risk - Notifiy Physici 08 (02/13/18 17:50) Admission Order(Inpt,Obs,Sdc) (02/13/18 17:51) Initiate Admission Nursing Pro .admission (02/13/18 17:51) Isolation Central Supply Req (02/13/18 17:51) Docusate Sodium Capsule (Colace Capsule) (02/13/18 21:00) Hydrocodone/Apap 5/325 Tablet (Lortab 5 (02/13/18 18:00) Sodium Chloride Flush (Catheter Flush Sy (02/13/18 18:00) Sodium Chloride Flush (Catheter Flush Sy (02/13/18 22:00) Consult Physician (02/13/18 17:52) Vital Signs: Routine (Order) ,16,00 (02/13/18 17:52) Cbc With Automated Diff (02/14/18 06:00) Comprehensive Metabolic Panel (02/14/18 06:00) Physical Therapy [place] (02/13/18 17:52) Occupational Therapy Order (02/13/18 17:52) Speech Therapy Orders (02/13/18 17:52) Up With Assistance As Tolerate (02/13/18 17:52) Chest 1 View, Ap/Pa Only (02/13/18 18:51) Daptomycin Injection (Cubicin Injection) (02/13/18 19:30) General/Regular (02/14/18 Breakfast) Picc Line Evaluation .ON ORDER (02/14/18 07:31) Chest 1 View, Ap/Pa Only (02/14/18 08:20) Patient Visit (02/14/18 ) Speech Sound Lang Comp (02/14/18 ) Ua Culture If Indicated (02/14/18 09:41) Fosfomycin Powder (Monurol) (02/14/18 09:15) Urine Culture (02/14/18 09:35) Code/Resuscitation (02/14/18 10:55) Patient Visit (02/14/18 ) Pt Eval Moderate Complexity (02/14/18 ) Gait Training, Ea 15 Min (02/14/18 ) Functional Activities, Ea 15 (02/14/18 ) Chest 1 View, Ap/Pa Only (02/14/18 15:39) Potassium Chloride (Tablet) (K Dur Table (02/14/18 19:01) Patient Visit (02/15/18 ) Functional Activities, Ea 15 (02/15/18 ) Exercise Therap, Ea 15 Min (02/15/18 ) Gait Training, Ea 15 Min (02/15/18 ) Therapeutic, Group (02/15/18 ) Patient Visit (02/16/18 ) Gait Training, Ea 15 Min (02/16/18 ) Functional Activities, Ea 15 (02/16/18 ) Exercise Therap, Ea 15 Min (02/16/18 ) Patient Visit (02/16/18 ) Exercise Therap, Ea 15 Min (02/16/18 ) Rehab Nursing Orders: Disease Management & Educaiton, DVT Prophylaxis, Fall Prevention, Nutrition Management, Pain Management Intensity of Therapy to be met Patient to be seen: Min.3h per day/5 of 7d PT IPOC Problem List: Activity Tolerance, Functional Strength, Safety, Balance, Gait Treatment Plan: Continue Plan of Care Bed Mobility, Education, Functional Activity [place], Functional Strength, Group Therapy, Gait, Safety, Therapeutic Exercise, Transfers Treatment Duration: Mar 07, 2018 Frequency: At least 5 of 7 days/Wk (IRF) Estimated Hrs Per Day: 1.5 hours per day OT IPOC Problems: Decreased Activ Tolerance, Decreased Safety Aware, Decreased UE Strength, Impaired I ADL's, Impaired Self-Care Skills OT Treatment, Training and Edu: Yes OT Problems Pt would benefit from skilled OT to increase her independence in basic self care to allow her to safely return to her home to live alone Plan of Care: ADL Retraining, Functional Mobility, Group Exercise/Act as Ind ( education, exercise, socialization, activity tolerance, functional activities) Treatment Duration: Mar 03, 2018 Frequency: At least 5 of 7 days/Wk (IRF) Estimated Hrs Per Day: 1.[address] IPOC Speech Therapy Treatment Plan: Discontinue ST Treatment Duration: Feb 16, 2018 Frequency: Modified Program (IRF) (No ST warranted.) Estimated Hrs Per Day: Other (No ST warranted.) Wood Sash And Frame Carpenter/Case Mgmt Wood Sash And Frame Carpenter/Case Managemen: Discharge Planning, Patient/Family Counseling Dietitian/Slate Splitting Supervisor Dietitian/Slate Splitting Supervisor to monitor nutritional status and make changes and/or recommendations as needed and work with speech pathology on dietary upgrades as the occur. Physician IPOC Medical Issues being managed closely and that require the 24 hour availability of a physician: Pain UTI HX of multiple falls with skull fracture Medical Issues: Bowel/Bladder Function, DVT Prophylaxis, Falls Precautions, Infection Protection, Pain Management, Other (List) (as per above) Brief Synthesis of Preadmission Screen, Post-Admission Evaluation, and Therapy Evaluations:82 yo female who lives alone and had been Independent who has had recuurent falls as well recurrent UTIS Had post injection pain from IM injection of antibiotic in left buttock with a resulting decline in function referrred to IRU for ongoing care and treatment.Progressing well and discharge set for 02-18-18 to home with [facility].Has a supportive sister who lives nearby [facility] code 16 Etioloic DX Left hip/buttock pain Medical Prognosis: Good Anticipated Length of Stay: 02-18-18 Modified [place] for adls and mobility skills with decreased pain and recurrent uti treated Anticipated d/c Destination: Home with [facility] NANCY RICE MD Feb 16, 2018 19:11
[2018-02-17] MEDS: CATHETER FLUSH 10 ML SYR IV SCH ×3 (05:37→20:27)
[2018-02-17] MEDS: HYDROcodone/APAP 5 MG/325 MG (LORTAB) TAB PO PRN ×3 (06:45→20:27)
--- NOTE | 2018-02-17 08:26 | PM & R (SOAP) Progress Note ---
Subjective This was a face to face visit with the patient. Date Seen by Provider: Feb 17, 2018 Time Seen by Provider: 07:45 Subjective/Events-last exam Patient was seen in her room this AM All set for discharge tomorrow to home with sister and HHC.Patient SBA for transfers Objective Physician Exam Last Set of Vital Signs Vital Signs Date Time Temp Pulse Resp B/P (MAP) Pulse Ox O2 Delivery O2 Flow Rate FiO2 02/17/18 06:46 97.6 73 18 98 Room Air Capillary Refill : I&O Intake and Output 02/17/18 00:00 Intake Total 1510 ml Output Total 650 ml Balance 860 ml Intake Oral 1510 ml Output Urine Total 650 ml # Voids 4 # Bowel Movements 2 General: Alert, Oriented X3, Cooperative, No Acute Distress HEENT: Atraumatic, PERRLA, EOMI, Mucous Memb Moist/[place] Neck: Supple, No JVD Lungs: Clear to Auscultation Heart: Regular Rate Abdomen: Normal Bowel Sounds, Soft, No Tenderness Extremities: Other Neuro: Other Results Lab Data Laboratory Tests 02/14/18 09:35: Urine Color YELLOW, Urine Clarity SLIGHTLY CLOUDY, Urine pH 7, Urine Specific [place] 1.015L, Urine Protein NEGATIVE, Urine Glucose (UA) NEGATIVE, Urine Ketones NEGATIVE, Urine Nitrite POSITIVEH, Urine Bilirubin NEGATIVE, Urine Urobilinogen NORMAL, Urine Leukocyte Esterase 3+H, Urine RBC (Auto) 2+H, Urine RBC 0-2, Urine WBC 25-50H, Urine Squamous Epithelial Cells RARE, Urine Crystals NONE, Urine Bacteria LARGEH, Urine Casts NONE, Urine Mucus NEGATIVE, Urine Culture Indicated YES 02/14/18 16:35: White Blood Count 11.1H, Red Blood Count 3.64L, Hemoglobin 11.2L, Hematocrit 35 , Mean Corpuscular Volume 96, Mean Corpuscular Hemoglobin 31, Mean Corpuscular Hemoglobin Concent 32, Red Cell Distribution Width 13.9, Platelet Count 260, Mean Platelet Volume 9.9, Neutrophils (%) (Auto) 83H, Lymphocytes (%) (Auto) 8L , Monocytes (%) (Auto) 7, Eosinophils (%) (Auto) 2, Basophils (%) (Auto) 0, Neutrophils # (Auto) 9.2H, Lymphocytes # (Auto) 0.8L, Monocytes # (Auto) 0.8, Eosinophils # (Auto) 0.2, Basophils # (Auto) 0.0, Sodium Level 142, Potassium Level 3.3L, Chloride Level 107, Carbon Dioxide Level 24, Anion Gap 11, Blood Urea Nitrogen 16, Creatinine 0.81, Estimat Glomerular Filtration Rate > 60, BUN/ Creatinine Ratio 20, Glucose Level 121H, Calcium Level 8.5, Total Bilirubin 0.5 , Aspartate Amino Transf (AST/SGOT) 13, Alanine Aminotransferase (ALT/SGPT) 11, Alkaline Phosphatase 136, Total Protein 5.6L, Albumin 3.3 Microbiology 02/14/18 Urine Culture - Final, Complete Escherichia coli Assessment/Plan Assessment and Plan Painful left buttock s/p IM injection of antibiotic improving Multiple falls with HX of skull fracture UTI on antibiotics Plan Continue PT/OT Discharge tomorrow to home with HHC and sister F/U with SW re details F/U with PCP DR Serrato (1) Hip pain, left Status: Acute Co-Morbidities that are continuing to impact the rehab process: (include details ) NANCY RICE MD Feb 17, 2018 08:26
[2018-02-17] MEDS ORDERED: ACHD5005 PO (08:29)
[2018-02-17] MEDS: DOCUSATE SODIUM 100 MG (COLACE) CAP PO SCH ×2 (08:31→21:50)
--- NOTE | 2018-02-17 09:58 | Occupational Ther Daily Note ---
OT Current Status-Daily Note Subjective Pt seen in room, up in bed, agreeable to OT. No pain mentioned but she reported that she was up to the bathroom 8 times last night. Appearance Alert, cooperative Mental Status/Objective Functional [place] Measure 0=Not Assessed/NA 4=Minimal Assistance 1=Total Assistance 5=Supervision or Setup 2=Maximal Assistance 6=Modified [place] 3=Moderate Assistance 7=Complete [place] ADL-Treatment Pt got up from bed without help and walked slowly with SBA, FWW to bathroom. Got on and off BSC over toilet by herself with grab bar and FWW and walked to shower with FWW. She was able to get in and out of shower and on/off shower bench without physical assistance but with SBA, with no LOB. She washed and dried all parts, setup, and walked back to [facility] to dress. She retrieved clean clothes and put dirty ones away. She also stood at the sink to brush her teeth and wash her face and hands, FWW for balance. She walked to / and was transported to gym for exercise. Upon returning, she toileted again and got into bed by herself. All walking during ADLs was slow but no LOB observed. Pt educ modified technique for taking shirt off and drying feet using long handled sponge. Functional [place] Measure 0=Not Assessed/NA 4=Minimal Assistance 1=Total Assistance 5=Supervision or Setup 2=Maximal Assistance 6=Modified [place] 3=Moderate Assistance 7=Complete IndependenceIRFPAI Quality Coding Scale 6 Independent with activity with or without an assistive device 5 Patient requires set up or clean up by helper. Patient completes activity by themselves 4 Supervision or touching assist (CGA). [place] provide cues , steadying assist 3 The helper provides less than half the effort to complete the activity 2 The helper provides more than half the effort to complete the activity 1 Dependent. The helper does all the effort to complete an activity 7 Patient refused to complete or attempt activity 9 The patient did not perform the activity before the current illness or injury 88 Not attempted due to Medical conditions or safety concerns Eating (FIM): 7 (Opens packages, cut up food, feeds herself without AD. No dentures) Eating (QC): 6 Grooming (FIM): 6 (Stood at sink to brush teeth, comb hair, wash face. FWW for balance. No LOB. Mild safety concerns) Oral Hygiene (QC): 6 Bathing (FIM): 5 (setup. washed and dried all aprts. SHower bench, grab bar, hand held shower, long handled sponge) Shower/Bathe Self (QC): 5 (setup) Upper Body (FIM): 6 (Retrieved clean clothes and put dirty ones away. Doffed and donned clothing, including bra. Pt educ modified technique. Mild safety concerns) Upper Body Dressing (QC): 6 Lower Body Dressing (FIM): 6 (Retrieved clean clothes and put dirty ones away. Doffed and donned clothing, including shoes. Dressing stick, FWW. Mild safety concerns) Lower Body Dressing (QC): 6 On/Off Footwear (QC): 6 Toileting (FIM): 6 (On/off BSC over toilet, grab bar, FWW. Able to manage clothing and hygiene. Mild safety concerns) Toileting Hygiene (QC): 6 Toilet/Commode Transfer (FIM): 6 (On/off BSC over toilet, FWW, grab bar. Mild safety concerns) Toilet Transfer (QC): 6 Shower Transfer(FIM): 5 (SBA getting in and out of shower, on and off shower bench. grab bar, FWW) Other Treatment Pt education on 5 different exercises done with yellow theraband (low resistance ). Occasional verbal cues. Written handout provided, with education. Pt initially did 10 reps of each of the exercises, then return demo'd each one from the handout, doing 12 reps, occasional cue. Pt verbalized understanding as well. Education OT Patient Education: Home exercise program, Modified ADL techniques, Purpose of tx/functional activities, Rehab process, Use of adapted equipment Teaching Recipient: Patient Teaching Methods: Demonstration, Discussion Response to Teaching: Verbalize Understanding, Return Demonstration OT Short Term Goals Short Term Goals Time Frame: Feb 21, 2018 Toileting(FIM): 5 Toilet/Commode Transfer(FIM): 5 Additional Short Term Goals: 1-Demonstrate ADL Tasks, 2-Verbalize Understanding , 3-ImproveStrength/[place] 1=Demonstrate adherence to instructed precautions during ADL tasks. 2=Patient will verbalize/demonstrate understanding of assistive devices/ modifications for ADL. 3=Patient will improve strength/tolerance for activity to enable patient to perform ADL's. OT Correction Goals [place] Goals Time Frame: Mar 03, 2018 Eating (FIM): 7 Eating (QC): 6 Groomin Oral Hygiene (QC): 6 Bathing(FIM): 6 Shower/Bathe Self (QC): 6 Upper Body Dressing(FIM): 6 Upper Body Dressing (QC): 6 Lower Body Dressing(FIM): 6 Lower Body Dressing (QC): 6 On/Off Footwear (QC): 6 Toileting(FIM): 6 Toileting Hygiene (QC): 6 Toilet/Commode Transfer(FIM): 6 Toilet/Commode Transfer (QC): 6 Shower Transfer(FIM): 6 Additional Goals: 1-Demonstrate ADL Tasks, 2-Verbalize Understanding, 3- ImproveStrength/[place] 1=Demonstrate adherence to instructed precautions during ADL tasks. 2=Patient will verbalize/demonstrate understanding of assistive devices/ modifications for ADL. 3=Patient will improve strength/tolerance for activity to enable patient to perform ADL's. OT Education/Plan Problem List/Assessment Pt would benefit from skilled OT to increase her independence in basic self care to allow her to safely return to her home to live alone Discharge Recommendations Plan/Recommendations: Continue POC (anticipate dc tomorrow) Treatment Plan/Plan of Care Patient would benefit from OT for education, treatment and training to promote independence in ADL's, mobility, safety and/or upper extremity function for ADL' s. Plan of Care: ADL Retraining, Functional Mobility, Group Exercise/Act as Ind ( education, exercise, socialization, activity tolerance, functional activities) Treatment Duration: Mar 03, 2018 Frequency: At least 5 of 7 days/Wk (IRF) Estimated Hrs Per Day: 1.5 hours per day Rehab Potential: Fair Time/GCodes Start Time: 08:30 Stop Time: 09:40 Total Time Billed (hr/min): 70 Billed Treatment Time visit,70 minutes exercise SAMMIE ARTIS OT Feb 17, 2018 09:58
[2018-02-17] MEDS ORDERED: ONDANSETRON 4 MG (ZOFRAN) ORAL DISSOLVE TAB PO PRN (10:15)
--- NOTE | 2018-02-17 11:39 | Physical Therapy Daily Note ---
PT Daily Note-Current Subjective Pt. state she was up 7 times through the night with diarrhea. " I told them not to give me that medicine".Pt.declines attempting stairs stating she doesnt have stairs at home and "will not " attempt them. Pt. also states she doesnt walk further than 65 ft at home , uses "buggy " at [employer] etc. Firm that she will not attempt 150 ft or steps Pain Numeric Pain Scale: 4 Location: Left Location Body Site: Hip Pain Description: Ache Mental Status Patient Orientation: Normal For Age Transfers Functional [place] Measure 0=Not Assessed/NA 4=Minimal Assistance 1=Total Assistance 5=Supervision or Setup 2=Maximal Assistance 6=Modified [place] 3=Moderate Assistance 7=Complete IndependenceIRFPAI Quality Coding Scale 6 Independent with activity with or without an assistive device 5 Patient requires set up or clean up by helper. Patient completes activity by themselves 4 Supervision or touching assist (CGA). [place] provide cues , steadying assist 3 The helper provides less than half the effort to complete the activity 2 The helper provides more than half the effort to complete the activity 1 Dependent. The helper does all the effort to complete an activity 7 Patient refused to complete or attempt activity 9 The patient did not perform the activity before the current illness or injury 88 Not attempted due to Medical conditions or safety concerns Transfers (B, C, W/C) (FIM): 6 Scootin Rollin Roll Left to Right (QC): 5 Supine to/from Sit: 6 Sit to/from Stand: 6 Sit to Lying (QC): 5 Sit to Stand (QC): 5 Chair/Dzb-oq-Tceda Xfer(QC): 5 Bed to/from Chair: 6 Car Transfer (QC): 5 moves slowly and carefully Weight Bearing Right Lower Extremity: Right Full Weight Bearing Left Lower Extremity: Left Full Weight Bearing Gait Training Does the Patient Walk?: Yes Gait (FIM): 5 Distance (FIM): 1=743-21 ft (75x2) Walk 10 feet (QC): 4 Walk 50 ft with 2 Turns(QC): 4 Walking 10ft/uneven surface-QC: 4 Gait Level of Assist: 5 Gait Persons Needed: 1 Gait Assistive Device: FWW household exception Stair Training refuses stair attempt Balance Special Test Comments unsafe to attempt Exercises Supine Ex: Ankle pumps, Quad Set, Rolling, Glut sets, Heel Slides, Short Arc Quads, Straight leg raise, Hip abd/add Supine Reps: 15 Assessment Current Status: Good Progress PT Short Term Goals Short Term Goals Time Frame: Feb 21, 2018 Gait (FIM): 2 Gait Distance Comment: 100' Gait Level of Assist: 5 Gait Assistive Device: FWW PT Provider Network Analyst Goals Provider Network Analyst Goals PT Provider Network Analyst Goals Time Frame: Mar 07, 2018 Transfers (B,C,W/C) (FIM): 5 Sit to Lying (QC): 4 Lying-Sitting on Side/Bed(QC): 4 Sit to Stand (QC): 4 Rollin Roll Left to Right (QC): 4 Chair/Fes-ga-Hyasv Xfer(QC): 4 Car Transfer (QC): 4 Gait (FIM): 5 Distance: 150' Walk 10 feet (QC): 4 Walk 10ft-Uneven Surface(QC): 4 Walk 50ft with 2 Turns (QC): 4 Walk 150 ft (QC): 4 Gait Level of Assist: 5 Stairs (FIM): 2 # of Steps: 4 1 Step (curb) (QC): 4 4 Steps (QC): 4 Stairs Level Of Assist: 5 PT Plan Treatment/Plan Treatment Plan: Continue Plan of Care Treatment Plan: Bed Mobility, Education, Functional Activity [place], Functional Strength, Group Therapy, Gait, Safety, Therapeutic Exercise, Transfers Treatment Duration: Mar 07, 2018 Frequency: At least 5 of 7 days/Wk (IRF) Estimated Hrs Per Day: 1.5 hours per day Patient and/or Family Agrees t: Yes Safety Risks/Education Patient Education: Gait Training, Transfer Techniques, Correct Positioning, Disease Process, Safety Issues Teaching Recipient: Patient Teaching Methods: Demonstration, Discussion Response to Teaching: Verbalize Understanding, Return Demonstration, Reinforcement Needed Time/GCodes Time In: 1035 Time Out: 1135 Total Billed Treatment Time: 60 Total Billed Treatment 1,GT15m,FA30m,EX15m G Codes Necessary: KAYLIE Mcnamara AUDIT INTERN Feb 17, 2018 11:39
[2018-02-17] MEDS ORDERED: LOPERAMIDE 2 MG (IMODIUM) CAP PO PRN (13:15)
--- NOTE | 2018-02-17 13:44 | D/C HH Face to Face Order ---
D/C Face to Face Orders Instructions for Patient Patient Instructions/FollowUp: Follow up appointment with Dr. Serrato Physician to follow Patient: Dr. Serrato Discharge Diet for Home: Regular Diet Patient Data-Allergies,Ht & Wt Patient Allergies: Coded Allergies: arformoterol (Verified Allergy, Intermediate, TREMORS, 06/14/16) azithromycin (Verified Allergy, Intermediate, RASH, 06/14/16) cefadroxil (Verified Allergy, Intermediate, RASH, 06/14/16) cephalexin (Verified Allergy, Intermediate, JAW PAIN, 06/14/16) levofloxacin (Verified Allergy, Intermediate, JOINT PAIN, 06/14/16) Penicillins (Verified Allergy, Unknown, 07/08/14) Sulfa (Sulfonamide Antibiotics) (Verified Allergy, Unknown, 07/08/14) albuterol (Verified Allergy, Unknown, 06/14/16) ciprofloxacin (Verified Allergy, Unknown, 07/08/14) erythromycin base (Verified Allergy, Unknown, 06/14/16) vancomycin (Verified Adverse Reaction, Unknown, HIVES, 02/14/18) HAD ITCHING AROUND SCALP Uncoded Allergies: "CYCLINES" (Allergy, Unknown, 10/02/14) Height (Feet): 5 Height (Inches): 2.00 Weight (Pounds): 146 Weight (Ounces): 1.0 Home Health Need/Face to Face Date of Face to Face: Feb 17, 2018 Clinical Findings: Generalized weakness and fatigue, Instability, Muscle weakness, Unsteady gait I have seen Pt [id number]: Yes Discharged To: Home Diagnosis/Conditions: Intractable Left Hip Pain; Weakness Patient is Homebound due to: Jyoti fall risk due to instabilty, Muscle weakness Homebound Status Due to the above stated illness, injury or surgical procedure (medical condition or diagnosis) and associated clinical findings, the patient is homebound because of his/her inability to leave home except with aid of a supportive device and/or person AND leaving the home requires a considerable and taxing effort or is medically contraindicated. Pt req the following assistanc: Walker Home Health Nursing Orders Home Health Services Order: Nursing Services, Event Marketing Coordinator-Evaluate & Treat, Physical Therapy-Evaluate & Treat Maintenance of PICC line Home Health Infusion Therapy Line Start Date: Feb 14, 2018 Line Start Time: 1530 Line Type: PICC Site Location: Arm-Upper Certify Stmt I certify that this patient is under my care and that I, a nurse practitioner or a physician; a operating room assistant working with me, had a face to face encounter that - meets the physician face to face encounter requirements with this patient as dated. I personally scribed for NANCY RICE MD ([facility]) on 02/17/18 at 13:44. Electronically submitted by Marlene Sun ([email or web address]). NANCY RICE MD Feb 17, 2018 13:44
--- NOTE | 2018-02-17 14:13 | Physical Therapy Daily Note ---
PT Daily Note-Current Subjective Pt. declines going to group therapy multiple times, requests TRF out of bed on to BS for toileting as she c/o she still has such diarrhea. "I cant get out of this room and go anywhere with this diarrhea" Pt. asks this FOREST LAW AND POLICY PROFESSOR to see if nursing can give her anything for diarrhea as well as requests brief to wear . Pain Numeric Pain Scale: 3 Location: Left Location Body Site: Hip Pain Description: Ache Mental Status Patient Orientation: Normal For Age Transfers Functional [place] Measure 0=Not Assessed/NA 4=Minimal Assistance 1=Total Assistance 5=Supervision or Setup 2=Maximal Assistance 6=Modified [place] 3=Moderate Assistance 7=Complete IndependenceIRFPAI Quality Coding Scale 6 Independent with activity with or without an assistive device 5 Patient requires set up or clean up by helper. Patient completes activity by themselves 4 Supervision or touching assist (CGA). Norris provide cues , steadying assist 3 The helper provides less than half the effort to complete the activity 2 The helper provides more than half the effort to complete the activity 1 Dependent. The helper does all the effort to complete an activity 7 Patient refused to complete or attempt activity 9 The patient did not perform the activity before the current illness or injury 88 Not attempted due to Medical conditions or safety concerns in out bed CGA to SBA, sit to stand SBA, all slow and very careful with some increased pain c/o with activity Weight Bearing Right Lower Extremity: Right Full Weight Bearing Left Lower Extremity: Left Full Weight Bearing Gait Training Gait Assistive Device: FWW 8 ft x 4 with FWW to BSC and back to bed. Exercises Seated Therapy Exercises: Ankle pumps, Sit to stand, Long arc quads Seated Reps: 8 Treatments pt. manages her own clean up after each toileting incident but needs some assist to rikki doff brief and pants etc. Assessment Current Status: Good Progress PT Short Term Goals Short Term Goals Time Frame: Feb 21, 2018 Gait (FIM): 2 Gait Distance Comment: 100' Gait Level of Assist: 5 Gait Assistive Device: FWW PT Professional Housing Consultant Goals Professional Housing Consultant Goals PT Professional Housing Consultant Goals Time Frame: Mar 07, 2018 Transfers (B,C,W/C) (FIM): 5 Sit to Lying (QC): 4 Lying-Sitting on Side/Bed(QC): 4 Sit to Stand (QC): 4 Rollin Roll Left to Right (QC): 4 Chair/Amj-xq-Flzyw Xfer(QC): 4 Car Transfer (QC): 4 Gait (FIM): 5 Distance: 150' Walk 10 feet (QC): 4 Walk 10ft-Uneven Surface(QC): 4 Walk 50ft with 2 Turns (QC): 4 Walk 150 ft (QC): 4 Gait Level of Assist: 5 Stairs (FIM): 2 # of Steps: 4 1 Step (curb) (QC): 4 4 Steps (QC): 4 Stairs Level Of Assist: 5 PT Plan Treatment/Plan Treatment Plan: Continue Plan of Care Treatment Plan: Bed Mobility, Education, Functional Activity Haw[place], Functional Strength, Group Therapy, Gait, Safety, Therapeutic Exercise, Transfers Treatment Duration: Mar 07, 2018 Frequency: At least 5 of 7 days/Wk (IRF) Estimated Hrs Per Day: 1.5 hours per day Patient and/or Family Agrees t: Yes Safety Risks/Education Patient Education: Gait Training, Transfer Techniques Teaching Recipient: Patient Teaching Methods: Demonstration, Discussion Response to Teaching: Verbalize Understanding, Return Demonstration, Reinforcement Needed Time/GCodes Time In: 1245 (1400) Time Out: 1305 (1410) Total Billed Treatment Time: 30 Total Billed Treatment 1,FA20m,EX10m G Codes Necessary: KAYLIE Mcnamara FOREST LAW AND POLICY PROFESSOR Feb 17, 2018 14:13
--- NOTE | 2018-02-17 15:47 | Occupational Ther Daily Note ---
OT Current Status-Daily Note Subjective Pt alert, lying in bed. Pt stated that she felt better after medication for her stomach. Agreed to therapy in bed. Mental Status/Objective Patient Orientation: Person, Place, Time, Situation Functional [place] Measure 0=Not Assessed/NA 4=Minimal Assistance 1=Total Assistance 5=Supervision or Setup 2=Maximal Assistance 6=Modified [place] 3=Moderate Assistance 7=Complete [place] ADL-Treatment Functional [place] Measure 0=Not Assessed/NA 4=Minimal Assistance 1=Total Assistance 5=Supervision or Setup 2=Maximal Assistance 6=Modified [place] 3=Moderate Assistance 7=Complete IndependenceIRFPAI Quality Coding Scale 6 Independent with activity with or without an assistive device 5 Patient requires set up or clean up by helper. Patient completes activity by themselves 4 Supervision or touching assist (CGA). Mcdowell provide cues , steadying assist 3 The helper provides less than half the effort to complete the activity 2 The helper provides more than half the effort to complete the activity 1 Dependent. The helper does all the effort to complete an activity 7 Patient refused to complete or attempt activity 9 The patient did not perform the activity before the current illness or injury 88 Not attempted due to Medical conditions or safety concerns Other Treatment Reviewed theraband exercises, pt demonstrated understanding of exercises. Medium resistance theraband given for future use. HEP for hand weights given and pt educated on. AE catalog given for resource. Educated different AE that would be useful at home for safety and energy conservation. After therapy, pt lying in bed with call light and phone in reach. All needs met in room. Education OT Patient Education: Home exercise program Teaching Recipient: Patient Teaching Methods: Demonstration, Handout, Discussion Response to Teaching: Verbalize Understanding, Return Demonstration OT Short Term Goals Short Term Goals Time Frame: Feb 21, 2018 Toileting(FIM): 5 Toilet/Commode Transfer(FIM): 5 Additional Short Term Goals: 1-Demonstrate ADL Tasks, 2-Verbalize Understanding , 3-ImproveStrength/Hawa 1=Demonstrate adherence to instructed precautions during ADL tasks. 2=Patient will verbalize/demonstrate understanding of assistive devices/ modifications for ADL. 3=Patient will improve strength/tolerance for activity to enable patient to perform ADL's. OT Assisted Goals Assisted Goals Time Frame: Mar 03, 2018 Eating (FIM): 7 Eating (QC): 6 Groomin Oral Hygiene (QC): 6 Bathing(FIM): 6 Shower/Bathe Self (QC): 6 Upper Body Dressing(FIM): 6 Upper Body Dressing (QC): 6 Lower Body Dressing(FIM): 6 Lower Body Dressing (QC): 6 On/Off Footwear (QC): 6 Toileting(FIM): 6 Toileting Hygiene (QC): 6 Toilet/Commode Transfer(FIM): 6 Toilet/Commode Transfer (QC): 6 Shower Transfer(FIM): 6 Additional Goals: 1-Demonstrate ADL Tasks, 2-Verbalize Understanding, 3- ImproveStrength/Hawa 1=Demonstrate adherence to instructed precautions during ADL tasks. 2=Patient will verbalize/demonstrate understanding of assistive devices/ modifications for ADL. 3=Patient will improve strength/tolerance for activity to enable patient to perform ADL's. OT Education/Plan Problem List/Assessment Pt would benefit from skilled OT to increase her independence in basic self care to allow her to safely return to her home to live alone Discharge Recommendations Plan/Recommendations: Continue POC Treatment Plan/Plan of Care Patient would benefit from OT for education, treatment and training to promote independence in ADL's, mobility, safety and/or upper extremity function for ADL' s. Plan of Care: ADL Retraining, Functional Mobility, Group Exercise/Act as Ind ( education, exercise, socialization, activity tolerance, functional activities) Treatment Duration: Mar 03, 2018 Frequency: At least 5 of 7 days/Wk (IRF) Estimated Hrs Per Day: 1.5 hours per day Rehab Potential: Fair Time/GCodes Start Time: 15:10 Stop Time: 15:30 Total Time Billed (hr/min): 20 Billed Treatment Time 1 visit-FA 1 (20 min) LUCAS GALEAS Feb 17, 2018 15:47
[2018-02-18] MEDS: HYDROcodone/APAP 5 MG/325 MG (LORTAB) TAB PO PRN ×2 (02:27→08:08)
[2018-02-18] MEDS: CATHETER FLUSH 10 ML SYR IV SCH (05:31)
--- NOTE | 2018-02-18 07:56 | PM & R (SOAP) Progress Note ---
Subjective This was a face to face visit with the patient. Date Seen by Provider: Feb 18, 2018 Time Seen by Provider: 07:30 Subjective/Events-last exam Patient was seen in her room this AM Patient reports being Modified Independent for transfers but will have her sister and HHC to assist her at home Patienr was interexted in having Picc line remain in but not practical as I believe that it would have to be flushed at home Discussed with RN Objective Physician Exam Last Set of Vital Signs Vital Signs Date Time Temp Pulse Resp B/P (MAP) Pulse Ox O2 Delivery O2 Flow Rate FiO2 02/18/18 05:09 97.4 77 19 97 Room Air Capillary Refill : I&O Intake and Output 02/18/18 00:00 Intake Total 1250 ml Balance 1250 ml Intake Oral 1250 ml # Voids 12 # Bowel Movements 4 General: Alert, Oriented X3, Cooperative, No Acute Distress HEENT: Atraumatic, PERRLA, EOMI, Mucous Memb Moist/[place] Neck: Supple, No JVD Lungs: Clear to Auscultation Heart: Regular Rate Abdomen: Normal Bowel Sounds, Soft, No Tenderness Extremities: Other Neuro: Other Results Lab Data Microbiology 02/14/18 Urine Culture - Final, Complete Escherichia coli Assessment/Plan Assessment and Plan Home to day with HHC and sister F/U with PCP See orders Current meds reviiewed (1) Hip pain, left Status: Acute Co-Morbidities that are continuing to impact the rehab process: (include details ) NANCY RICE MD Feb 18, 2018 07:56
[2018-02-18] MEDS: DOCUSATE SODIUM 100 MG (COLACE) CAP PO SCH (08:09)
[2018-02-18] MEDS: FOSFOMYCIN 3 GM PACK (MONUROL) PO SCH (08:09)
--- NOTE | 2018-02-20 11:13 | Therapy Team Discharge Summary ---
Therapy Discharge Summary Discharge Recommendations Date of Discharge Feb 18, 2018 at 11:00 Therapy D/C Recommendations: Assisted Living, Home w/ Family Support, Occupational Therapy Home Care Occupational Therapy Pt was seen for skilled OT to increase her independence in basic self care to allow her to safely return home after treatment for UTI (direct admit from ED). On admission she needed setup for eating and grooming, contact guard for grooming at sink, bathing, lower body dressing, toileting and toilet transfers. By discharge she had progressed to independent with eating, modified independent with grooming, dressing, toileting and SBA for bathing and shower transfers. She used FWW, BSC over toilet, grab bars, hand held shower, long handled sponge, dressing stick and sock aid. She dischared to home with family support and home care OT recommended. See tx plan for goals met. DC OT. Decreased Activ Tolerance, Decreased Safety Aware, Decreased UE Strength, Impaired I ADL's, Impaired Self-Care Skills PT Lighter Goals Shelter Goals PT Lighter Goals Time Frame: Mar 07, 2018 Transfers (B,C,W/C) (FIM): 5 Roll Left to Right (QC): 4 Sit to Lying (QC): 4 Lying-Sitting on Side/Bed(QC): 4 Sit to Stand (QC): 4 Chair/Pse-th-Rwkcq Xfer(QC): 4 Car Transfer (QC): 4 Gait (FIM): 5 Distance: 150' Walk 10 feet (QC): 4 Walk 10ft-Uneven Surface(QC): 4 Walk 50ft with 2 Turns (QC): 4 Walk 150 ft (QC): 4 Gait Level of Assist: 5 Stairs (FIM): 2 # of Steps: 4 1 Step (curb) (QC): 4 4 Steps (QC): 4 Stairs Level Of Assist: 5 OT Lighter Goals Lighter Goals Time Frame: Mar 03, 2018 Eating (FIM): 7 (met 7-6-18) Eating (QC): 6 (met 7-6-18) Oral Hygiene (QC): 6 (met 7-6-18) Grooming(FIM): 6 (met 7-6-18) Bathing(FIM): 6 (not met 7-6-18) Shower/Bathe Self (QC): 6 (not met 7-6-18) Upper Body Dressing(FIM): 6 (met --18) Upper Body Dressing (QC): 6 (met --18) Lower Body Dressing(FIM): 6 (met --18) Lower Body Dressing (QC): 6 (met -18) On/Off Footwear (QC): 6 (met --18) Toileting(FIM): 6 (met -18) Toileting Hygiene (QC): 6 (met 18) Toilet/Commode Transfer(FIM): 6 (met 18) Toilet/Commode Transfer (QC): 6 (met 18) Shower Transfer(FIM): 6 (met 18) Additional Goals: 1-Demonstrate ADL Tasks, 2-Verbalize Understanding, 3- ImproveStrength/Hawa 1=Demonstrate adherence to instructed precautions during ADL tasks. 2=Patient will verbalize/demonstrate understanding of assistive devices/ modifications for ADL. 3=Patient will improve strength/tolerance for activity to enable patient to perform ADL's. SAMMIE ARTIS OT Feb 20, 2018 11:13
--- NOTE | 2018-02-22 11:38 | Therapy Team Discharge Summary ---
Therapy Discharge Summary Discharge Recommendations Date of Discharge Feb 18, 2018 at 11:00 Therapy D/C Recommendations: Assisted Living, Home w/ Family Support, Occupational Therapy Home Care Physical Therapy Patient came to rehab with Debility, Cystitis, UTI. Upon evaluation patient performed rolling with SBA, scooting with max assist, supine to sit with min assist, sit to supine with mod assist, sit to stand with CGA, transfers with CGA , car transfer with CGA, ambulated 50' with a rolling walker with CGA, including 50' with at least 2 turns of 90 degrees and 10' over an uneven surface , and went up and down 1 step using a rolling walker with CGA. Patient has been performing bed mobility and transfer training, balance and endurance training, functional strengthening, stair training, gait training, and education. Patient has made fair progress but has not met her ambulation or stairs peoplesoft financials consultant goals. Patient actually refused to perform stairs. Now, patient performs bed mobility and transfers with mod I, ambulates 75' with a rolling walker with SBA (including 50' with at least 2 turns of 90 degrees and 10' over an uneven surface). Patient has been discharged from rehab and will be discharged from PT at this time. Occupational Therapy Decreased Activ Tolerance, Decreased Safety Aware, Decreased UE Strength, Impaired I ADL's, Impaired Self-Care Skills PT Chemical Preparer Goals Half-Way Goals PT Chemical Preparer Goals Time Frame: Mar 07, 2018 Transfers (B,C,W/C) (FIM): 5 Roll Left to Right (QC): 4 Sit to Lying (QC): 4 Lying-Sitting on Side/Bed(QC): 4 Sit to Stand (QC): 4 Chair/Rmx-xq-Jjxbu Xfer(QC): 4 Car Transfer (QC): 4 Gait (FIM): 5 Distance: 150' Walk 10 feet (QC): 4 Walk 10ft-Uneven Surface(QC): 4 Walk 50ft with 2 Turns (QC): 4 Walk 150 ft (QC): 4 Gait Level of Assist: 5 Stairs (FIM): 2 # of Steps: 4 1 Step (curb) (QC): 4 4 Steps (QC): 4 Stairs Level Of Assist: 5 OT Chemical Preparer Goals Chemical Preparer Goals Time Frame: Mar 03, 2018 Eating (FIM): 7 (met 7-6-18) Eating (QC): 6 (met 7-6-18) Oral Hygiene (QC): 6 (met 18) Grooming(FIM): 6 (met 18) Bathing(FIM): 6 (not met 18) Shower/Bathe Self (QC): 6 (not met 02-17-18) Upper Body Dressing(FIM): 6 (met 02-17-18) Upper Body Dressing (QC): 6 (met 02-17-18) Lower Body Dressing(FIM): 6 (met 02-17-18) Lower Body Dressing (QC): 6 (met 02-17-18) On/Off Footwear (QC): 6 (met 02-17-18) Toileting(FIM): 6 (met 02-17-18) Toileting Hygiene (QC): 6 (met 02-17-18) Toilet/Commode Transfer(FIM): 6 (met 02-17-18) Toilet/Commode Transfer (QC): 6 (met 02-17-18) Shower Transfer(FIM): 6 (met 02-17-18) Additional Goals: 1-Demonstrate ADL Tasks, 2-Verbalize Understanding, 3- ImproveStrength/Hawa 1=Demonstrate adherence to instructed precautions during ADL tasks. 2=Patient will verbalize/demonstrate understanding of assistive devices/ modifications for ADL. 3=Patient will improve strength/tolerance for activity to enable patient to perform ADL's. GILMAR REYNA PT Feb 22, 2018 11:38
--- NOTE | 2018-02-28 23:18 | DISCHARGE SUMMARY ---
DATE OF SERVICE: HISTORY OF PRESENT ILLNESS: The patient is an 82-year-old female who was being treated on an outpatient basis for recurrent UTIs and cystitis with IM antibiotics. She developed soreness in the left buttock affecting her mobility. She presented to ED and was referred to inpatient rehabilitation unit. She was on daptomycin IV upon admission, but her PICC line was malpositioned. PCP is Dr. Serrato. The patient was being followed by hospitalist service. The patient has a history of falls and a brief stay at the hospital after falling outside of a [employer] par[place] and having an occipital skull fracture that was nondisplaced. 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 She had been independent prior to this. She lives in [place], [place]. She has a sister in the area that assists as needed. She is a . PAST MEDICAL HISTORY: Falls, interstitial cystitis, recurrent UTIs, appendectomy, adenoidectomy, cholecystectomy, hysterectomy, lumpectomy, tonsillectomy. MEDICAL COURSE: The patient was followed by Dr. Solorio and hospitalist service while on rehab unit. PICC line nurse addressed the non-functioning PICC line. She completed a course of antibiotics. She was afebrile during her stay. Pulse was 72 on 02/18, respirations 19, O2 sat 97% on room air. CBC on 02/14 showed WBC 11.1, H and H 11.2/35. Chemistry on 02/14 showed serum potassium 3.3 for replacement provided, blood glucose 121, total protein low at 5.6. UA on 02/14 showed more than 100,000 E. coli. The patient completed a course of IV antibiotics. PICC line was removed prior to discharge as it would need to be flushed repeatedly at home, which would be problematic for home health care the patient to do. REHABILITATION COURSE: The patient was assessed by speech therapy upon admission and found to be functionally intact. They signed off. OT notes upon admission, she was set up for eating and grooming, contact guard for grooming, bathing, lower body dressing, toileting and toilet transfers. By discharge, she had progressed to independent with eating, was modified independent with grooming, dressing, toileting and standby assist with bathing and shower transfers. PT notes upon admission, the patient was standby assist to min assist for bed mobility, transfers with contact guard, could ambulate 50 feet with a rolling walker with contact guard. The patient made progress. Upon discharge, she is modified independent with bed mobility and transfers, can ambulate 75 feet with a wheeled walker with standby assist. The patient declined to attempt stairs. DISCHARGE INSTRUCTIONS: The patient is discharged to home with home health care. The patient will follow with Dr. Serrato, PCP. Continue current diet. DISCHARGE MEDICATIONS: Hydrocodone/APAP 5/325 mg one tablet p.o. q. 4 hours p.r.n. moderate pain. DISCHARGE DIAGNOSES: 1. Rehabilitation, bruising, left buttock due to the IM injections, improved. 2. Unable to ambulate, improved. 3. Interstitial cystitis, completed course of antibiotics. 4. History of falls. 5. Escherichia coli, urinary tract infection, treated. 6. Mild anemia. 7. Mild hypokalemia, replaced. CONDITION AT DISCHARGE: Improved and stable. PROGNOSIS: Rehab prognosis appears good for continued improvement at home and return to independent living with assistance from home health care and her sister as needed. Job ID: [id number] DocumentID: [id number] Dictated Date: 02/28/2018 09:15:31 Filing Clerk Date: 02/28/2018 23:18:14 Dictated By: NANCY SOLORIO MD MTDD
== END 2018-02-18 11:00 | disposition home health service (06) | DRG 605 ==
PROVIDERS: ADMIT Physical Medicine & Rehabilitation; ATTEND Physical Medicine & Rehabilitation
DX: S30.0XXA Contusion of lower back and pelvis, initial encounter (principal); R26.2 Difficulty in walking, not elsewhere classified; N30.10 Interstitial cystitis (chronic) without hematuria; Z91.81 History of falling; Y84.8 Other medical procedures as the cause of abnormal reaction of the patient, or of later complication, without mention of misadventure at the time of the procedure
CPT/HCPCS: 36415; 36569; 71045; 76937; 80053; 81000; 85025; 87077; 87088; 87186

== ENCOUNTER 2018-02-21 15:27 | Outpatient (RCR) | payer MEDICARE, OTHER ==
[~2018-02-21 15:27] MED LIST changes: +ACHD5005 PO
[2018-02-21] MEDS ORDERED: DAPTOmycin INJECTION 400 MG in NS (IVPB) 50 ML IV SCH (17:00)
== END 2018-02-22 07:24 | disposition home or self-care (01) ==
LOC: SDC 15:27
DX: N39.0 Urinary tract infection, site not specified (principal)

== ENCOUNTER 2018-03-03 10:05 | Outpatient (RCR) | payer MEDICARE, OTHER ==
[2018-02-21 16:47] VITALS: BP 0/0
[2018-02-21] MEDS: DAPTOmycin INJECTION 400 MG in NS (IVPB) 50 ML IV SCH (17:00)
[2018-02-21 17:46] VITALS: BP 0/0
[2018-02-22 13:00] VITALS: BP 0/0
[2018-02-22] MEDS: DAPTOmycin INJECTION 400 MG in NS (IVPB) 50 ML IV SCH (13:18)
[2018-02-22 13:49] VITALS: BP 0/0
[2018-02-23] MEDS: DAPTOmycin INJECTION 400 MG in NS (IVPB) 50 ML IV SCH (14:00)
[2018-02-23 14:30] VITALS: BP 0/0
[2018-02-24 13:12] VITALS: BP 0/0
[2018-02-24] MEDS: DAPTOmycin INJECTION 400 MG in NS (IVPB) 50 ML IV SCH (13:36)
[2018-02-25 12:45] VITALS: BP 0/0
[2018-02-25] MEDS: DAPTOmycin INJECTION 400 MG in NS (IVPB) 50 ML IV SCH (13:03)
[2018-02-26 12:47] VITALS: BP 0/0
[2018-02-26] MEDS: DAPTOmycin INJECTION 400 MG in NS (IVPB) 50 ML IV SCH (13:08)
[2018-02-27] MEDS: DAPTOmycin INJECTION 400 MG in NS (IVPB) 50 ML IV SCH (12:50)
[2018-02-27 13:25] VITALS: BP 0/0
[~2018-03-03] VITALS: Ht 157.5 cm; Wt 66.3 kg
[2018-03-03 10:05] VITALS: BP 0/0
== END 2018-03-03 12:23 | disposition home or self-care (01) ==
LOC: SDC 10:05
DX: N39.0 Urinary tract infection, site not specified (principal)
CPT/HCPCS: 96365

== ENCOUNTER → 2018-03-24 | Outpatient (CLI) | payer MEDICARE, OTHER ==
[2018-03-24 10:01] LABS: BILIRUBIN,URINE 1+ (NEGATIVE); CLARITY,URINE VERY CLOUDY; COLOR,URINE AMBER; GLUCOSE, URINE (UA) 1+ (NEGATIVE); KETONES,URINE 1+ (NEGATIVE); LEUKOCYTE ESTERASE ,URINE 3+ (NEGATIVE); NITRITE,URINE POSITIVE (NEGATIVE); PH,URINE 5 (5-9); PROTEIN,URINE 3+ (NEGATIVE); UROBILINOGEN,URINE 4 MG/DL (NORMAL)
[2018-03-24 10:28] LABS: BACTERIA,URINE LARGE /HPF; RBC,URINE TNTC /HPF; WBC,URINE TNTC /HPF
--- NOTE | 2018-03-24 10:32 | Diagnostic Imaging Report ---
INDICATION: Left wrist pain. Patient sustained a recent left wrist injury. TIME OF EXAM: 09:51 a.m. No prior studies are available for comparison. Three views of the left wrist demonstrate a plate and screws transfixing the distal radius. Hardware appears intact. Distal radius appears intact. There is a well-corticated osseous density adjacent to the ulnar styloid consistent with an old ulnar styloid fracture. The carpus is unremarkable. Metacarpals are unremarkable. No acute bony abnormality is seen. There is generalized demineralization. IMPRESSION: Chronic and postsurgical changes. No acute bony abnormality is detected. Dictated by: Dictated on workstation # [id number]
== END ==
LOC: RAD 09:11
DX: M25.532 Pain in left wrist (principal); N39.0 Urinary tract infection, site not specified
CPT/HCPCS: 73110; 81000; 87088

== ENCOUNTER 2018-05-11 13:33 | Outpatient (RCR) | payer MEDICARE, OTHER | END 2018-05-14 | disposition home or self-care (01) | PROVIDERS: ATTEND Physician Assistant | DX: R42 Dizziness and giddiness (principal) ==

== ENCOUNTER → 2018-06-16 | Outpatient (CLI) | payer MEDICARE, OTHER ==
--- NOTE | 2018-06-16 14:22 | Diagnostic Imaging Report ---
INDICATION: Left leg pain and oozing. TIME OF EXAM: 12:07 p.m. Alignment at the knee and ankle is normal. Tibia and fibula appear intact. No fractures are seen. No bony destructive changes are identified. Soft tissues are unremarkable. IMPRESSION: No acute bony abnormality is detected. Dictated by: Dictated on workstation # [id number]
== END ==
LOC: RAD 11:33
DX: M79.605 Pain in left leg (principal)
CPT/HCPCS: 73590

== ENCOUNTER → 2018-12-14 | Outpatient (CLI) | payer MEDICARE, OTHER ==
[~2018-12-14] MED LIST changes: +HYDR-3812 PO
--- NOTE | 2018-12-14 17:00 | Diagnostic Imaging Report ---
PROCEDURE: US right lower extremity venous. TECHNIQUE: Multiple real-time grayscale images were obtained over the right lower extremity in various projections. Additional spectral analysis and color Doppler duplex images were also obtained. INDICATION: Localized edema. FINDINGS: There is no femoral popliteal deep venous thrombus. Edema at the level of the calf limits evaluation of the vessels below the knee. No discrete mass or fluid collection. IMPRESSION: No femoral popliteal deep venous thrombus. Lower leg subcutaneous edema noted. Dictated by: Dictated on workstation # [id number]
== END ==
LOC: RAD 15:53
PROVIDERS: ATTEND Nurse Practitioner Family
DX: R60.0 Localized edema (principal)

== ENCOUNTER 2018-12-16 16:14 | Inpatient (IN) | payer MEDICARE, OTHER | END 2018-12-22 13:37 | LOC: 4TH 12-21 15:30 → ER 16:14 → 4TH 18:02 ==

== ENCOUNTER 2018-12-24 20:46 | Emergency (ER) | payer MEDICARE ==
[~2018-12-24] VITALS: Ht 160 cm; Wt 64.4 kg
--- NOTE | 2018-12-24 22:18 | ED Integumentary General ---
General Chief Complaint: Skin/Wound Problems Stated Complaint: HEMATOMA; LEG Nursing Triage Note: Pt arrived by [facility] with chief complaint of wound to right outer lower leg. Pt stated she saw Dr. Sears last week for issue and he wanted her to go to a mcc to let the blood drain out, but today the pt stated it was bleeding a lot. She stated she was going to have to have wound care to it eventually. Source: patient Exam Limitations: no limitations History of Present Illness Date Seen by Provider: December 24, 2018 Time Seen by Provider: 21:40 Initial Comments 83-year-old female who presents to the emergency room with complaints of a wound to her right outer lower leg. She was diagnosed with a hematoma while in the hospital last week and had seen Dr. Sears in the hospital but he discharged her to a m[facility] for therapy and told her that she would need wound care. She reports that the hematoma opened up and started to bleed, she reports that Dr. Sears's of this would happen and to follow-up in his office. She is concerned with the amount of bleeding. The wound is now bleeding on arrival to the emergency room. She has a large open hematoma/blood blister to her right lower outer extremity. Timing/Duration: week Possible Cause: no cause identified Associated Symptoms: blisters, change in skin texture Allergies and Home Medications Allergies Coded Allergies: arformoterol (Verified Allergy, Intermediate, TREMORS, 12/16/18) azithromycin (Verified Allergy, Intermediate, RASH, 12/16/18) cefadroxil (Verified Allergy, Intermediate, RASH, 12/16/18) cephalexin (Verified Allergy, Intermediate, JAW PAIN, 12/16/18) levofloxacin (Verified Allergy, Intermediate, JOINT PAIN, 12/16/18) Penicillins (Verified Allergy, Unknown, 12/16/18) Sulfa (Sulfonamide Antibiotics) (Verified Allergy, Unknown, 12/16/18) albuterol (Verified Allergy, Unknown, 12/16/18) ciprofloxacin (Verified Allergy, Unknown, 12/16/18) erythromycin base (Verified Allergy, Unknown, 12/16/18) vancomycin (Verified Adverse Reaction, Unknown, HIVES, 12/16/18) HAD ITCHING AROUND SCALP Uncoded Allergies: "CYCLINES" (Allergy, Unknown, 10/02/14) Home Medications Hydrocodone/Acetaminophen 1 Each Tablet, 0.5 TAB PO Q4-6HR PRN for PAIN-MODERATE LAST FILLED #90 04-20-18 Prescribed by: MONI ROMEO on 12/21/18 1008 Patient Home Medication List Home Medication List Reviewed: Yes Review of Systems Review of Systems Constitutional: see HPI; No chills, No fever Skin: see HPI, other (right lower extremity) All Other Systems Reviewed Negative Unless Noted: Yes Past Muatrds-Dpjxmg-Nuncwo Hx Past Med/Social Hx: Reviewed Nursing Past Med/Soc Hx Patient Social History Alcohol Use: Denies Use Recreational Drug Use: No Smoking Status: Never a Smoker Recent Foreign Travel: No Contact w/Someone Who Travel: No Recent Infectious Disease Expo: No Recent Hopitalizations: Yes (SKULL FX.) Physical Abuse: No Sexual Abuse: No Mistreated: No Fear: No Immunizations Up To Date Tetanus Booster (TDap): More than 5yrs Date of Pneumonia Vaccine: May 18, 2019 Date of Influenza Vaccine: May 31, 2016 Seasonal Allergies Seasonal Allergies: No Past Medical History Surgeries: Yes (LEFT WRIST FX-PLATE AND SCREWS) Adenoidectomy, Appendectomy, Gallbladder, Hysterectomy, Lumpectomy, Tonsillectomy Respiratory: Yes Pneumonia, COPD Cardiac: No Neurological: Yes (Stated history of Multiple Sclerosis- diagnosed in 1980.) Multiple Sclerosis Reproductive Disorders: No 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 Sexually Transmitted Disease: No HIV/AIDS: No Genitourinary: Yes (Interstitial cystitis) Gastrointestinal: No Musculoskeletal: Yes (FREQUENT FALLS) Fractures Endocrine: No HEENT: Yes (Cataracts removed) Cataract, Glaucoma Loss of Vision: Denies Hearing Impairment: Denies Cancer: No Psychosocial: No Integumentary: Yes (Paper thin skin) Blood Disorders: No Adverse Reaction/Blood Tranf: No (N/A) Family Medical History Reviewed Nursing Family Hx Cancer, Hypertension Physical Exam Vital Signs Vital Signs - First Documented 12/24/18 20:57 Temp 98.4 Pulse 102 Resp 20 B/P (MAP) 144/95 (111) Pulse Ox 97 O2 Delivery Room Air Capillary Refill : Less Than 3 Seconds General Appearance: WD/WN, no apparent distress Cardiovascular: normal peripheral pulses, regular rate, rhythm, no edema, no gallop, no JVD, no murmur Respiratory: chest non-tender, lungs clear, normal breath sounds, no respiratory distress, no accessory muscle use Extremities: normal capillary refill Neurologic/Psychiatric: alert, normal mood/affect, oriented x 3 Skin: normal color, warm/dry Skin Problem Location: lower extremities (right lower outer) Skin Problem Character: other (hematoma) Progress/Results/Core Measures Results/Orders Vital Signs/I&O 12/24/18 12/24/18 20:57 22:28 Temp 98.4 Pulse 102 0 Resp 20 0 B/P (MAP) 144/95 (111) 0/0 (0) Pulse Ox 97 0 O2 Delivery Room Air Blood Pressure Mean: 111 Progress Progress Note : Time: 22:14 Progress Note I have seen and evaluated the patient. A sterile dressing was applied of Telfa and Curlex to the patient's right lower extremity as requested by Dr. Sears. After Renu requests to see the patient in his office tomorrow for follow-up. The patient agrees with plan of care, plans for discharge, return precautions were given. Departure Impression Primary Impression: draining hematoma to right extremity Disposition: 01 HOME, SELF-CARE Condition: Stable/Unchanged Departure-Patient Inst. Decision time for Depature: 22:14 Referrals: MIRIAN MUHAMMAD MD (PCP/Family) Primary Care Physician Patient Instructions: Wound Care (DC) Add. Discharge Instructions: Call Dr. Sears's office tomorrow morning to schedule an appointment time. Dr. Sears wishes to see the patient tomorrow in the office. Change the dressing if it should become saturated using Telfa and Curlex. Return back to the emergency room for worsening symptoms or concerns as needed. All discharge instructions reviewed with patient and/or family. Voiced understanding. JENA JJ December 24, 2018 22:18
[2018-12-24 22:28] VITALS: BP 0/0
== END 2018-12-24 22:28 | disposition home or self-care (01) ==
LOC: EDUNIT# 20:46 → ER 20:47
DX: M79.81 Nontraumatic hematoma of soft tissue (principal); J44.9 Chronic obstructive pulmonary disease, unspecified; G35 Multiple sclerosis; Z91.81 History of falling; Z87.448 Personal history of other diseases of urinary system; Z88.8 Allergy status to other drugs, medicaments and biological substances; Z88.0 Allergy status to penicillin; Z88.2 Allergy status to sulfonamides; Z88.1 Allergy status to other antibiotic agents; Z91.041 Radiographic dye allergy status; Z90.49 Acquired absence of other specified parts of digestive tract; Z98.890 Other specified postprocedural states; Z90.710 Acquired absence of both cervix and uterus; Z90.89 Acquired absence of other organs; Z87.01 Personal history of pneumonia (recurrent)
CPT/HCPCS: 99283

== ENCOUNTER → 2018-12-29 | Outpatient (CLI) | payer MEDICARE ==
--- NOTE | 2018-12-29 13:30 | NUR ---
RECEIVED FROM [facility] TO RECEIVE 2 UNITS PRC OUTPATIENT, PATIENT INSTRUCTED ON BLOOD TRANSFUSION, REFUSED TO HAVE BLOOD PRESSURE TAKEN, THIS NURSE INSTRUCTED PATIENT TRANSFUSION PROTOCOL AND THAT SHE WOULD HAVE TO HAVE HER VITAL SIGNS TAKEN BEFORE BLOOD STARTED, 15 MINUTES AFTER BLOOD STARTED AND WHEN BLOOD DONE, REFUSED TO HAVE IV STARTED, STATES SHE DOESN'T WANT THE BLOOD AND WANTS TO GO BACK TO HALFWAY. SISTER AT BEDSIDE. PATIENT AGREED TO LET NURSES TECH CHECK BLOOD PRESSURE, BRUISE LEFT ON ARM FROM BP CUFF. PATIENT YELLED AND MADE NURSES TECH STOP BP BEFORE READING.
--- NOTE | 2018-12-29 13:50 | NUR ---
DR MUHAMMAD CALLED AND MESSAGE LEFT THAT PATIENT REFUSED TO HAVE IV STARTED OR HAVE VS TAKEN
--- NOTE | 2018-12-29 13:50 | NUR ---
PATIENT SIGNED AMA SHEET, INSTRUCTED BY NURSE THE IMPORTANCE OF RECEIVING BLOOD TRANSFUSION.
--- NOTE | 2018-12-29 14:00 | NUR ---
VIA [facility] NOTIFIED THAT PATIENT WAS LEAVING AMA, REPORT TO NURSE BERMAN AT THE [facility]
--- NOTE | 2018-12-29 14:37 | NUR ---
VIA [facility] HERE TO GET PATIENT, LEFT PER W/C, SISTER HERE
== END ==
LOC: SDC 13:14
DX: D64.9 Anemia, unspecified (principal)

== ENCOUNTER 2019-06-23 18:07 | Emergency (ER) | payer MEDICARE ==
[~2019-06-23] VITALS: Ht 157 cm; Wt 57.0 kg
--- NOTE | 2019-06-23 18:46 | ED Fall/Injury ---
General Chief Complaint: Trauma-Non Activation Stated Complaint: FALL Nursing Triage Note: SEE TRIAGE Source: patient, EMS Exam Limitations: no limitations History of Present Illness Date Seen by Provider: Jun 23, 2019 Time Seen by Provider: 18:40 Initial Comments To ER per EMS from home with reports of a fall. She fell was morning while sitting in a recliner using her walker, slipped out from in front of her causing her to fall. She has a large laceration to the left anterior knee, skin tear/avulsion to the left distal forearm, complains of left shoulder pain. Did not hit her head, no neck pain. No chest abdomen pelvis or hip pain. She refused to allow EMS to check blood pressure on the way here because it causes her to bruise. She states her tetanus vaccination status is up-to-date within the past 5 years. She only came to ER this evening because "I was bullied by my sister and caregiver" Location Injury Occurred: HOME Occurred: this evening Severity: moderate Injuries/Pain Location: upper extremity, lower extremity Context: unknown Loss of Consciousness: no loss of consciousness Associated Symptoms (Fall): Denies Symptoms Allergies and Home Medications Allergies Coded Allergies: arformoterol (Verified Allergy, Intermediate, TREMORS, 12/16/18) azithromycin (Verified Allergy, Intermediate, RASH, 12/16/18) cefadroxil (Verified Allergy, Intermediate, RASH, 12/16/18) cephalexin (Verified Allergy, Intermediate, JAW PAIN, 12/16/18) levofloxacin (Verified Allergy, Intermediate, JOINT PAIN, 12/16/18) Penicillins (Verified Allergy, Unknown, 12/16/18) Sulfa (Sulfonamide Antibiotics) (Verified Allergy, Unknown, 12/16/18) albuterol (Verified Allergy, Unknown, 12/16/18) ciprofloxacin (Verified Allergy, Unknown, 12/16/18) erythromycin base (Verified Allergy, Unknown, 12/16/18) vancomycin (Verified Adverse Reaction, Unknown, HIVES, 12/16/18) HAD ITCHING AROUND SCALP Uncoded Allergies: "CYCLINES" (Allergy, Unknown, 10/02/14) Home Medications Hydrocodone/Acetaminophen 1 Each Tablet, 0.5 TAB PO Q4-6HR PRN for PAIN-MODERATE LAST FILLED #90 04-20-18 Prescribed by: MONI ROMEO on 12/21/18 1008 Patient Home Medication List Home Medication List Reviewed: Yes Review of Systems Review of Systems Constitutional: see HPI Eyes: No Symptoms Reported Ears, Nose, Mouth, Throat: no symptoms reported Respiratory: no symptoms reported Cardiovascular: no symptoms reported Genitourinary: no symptoms reported Musculoskeletal: see HPI Skin: see HPI Psychiatric/Neurological: No Symptoms Reported Past Lzbyrgw-Cvagzy-Mwyoqf Hx Patient Social History Alcohol Use: Denies Use Recreational Drug Use: No Smoking Status: Never a Smoker Recent Foreign Travel: No Contact w/Someone Who Travel: No Recent Hopitalizations: No (SKULL FX.) Physical Abuse: No Sexual Abuse: No Immunizations Up To Date Tetanus Booster (TDap): Less than 5yrs Date of Pneumonia Vaccine: May 18, 2019 Date of Influenza Vaccine: May 31, 2016 Seasonal Allergies Seasonal Allergies: No Past Medical History Surgeries: Yes (LEFT WRIST FX-PLATE AND SCREWS) Adenoidectomy, Appendectomy, Gallbladder, Hysterectomy, Lumpectomy, Tonsi llectomy Respiratory: Yes Pneumonia, COPD Cardiac: No Neurological: Yes (Stated history of Multiple Sclerosis- diagnosed in 1980.) Multiple Sclerosis 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 Sexually Transmitted Disease: No HIV/AIDS: No Genitourinary: Yes (Interstitial cystitis) Gastrointestinal: No Musculoskeletal: Yes (FREQUENT FALLS) Fractures Endocrine: No HEENT: Yes (Cataracts removed) Cataract, Glaucoma Loss of Vision: Denies Hearing Impairment: Denies Cancer: No Psychosocial: No Integumentary: Yes (Paper thin skin) Blood Disorders: No Adverse Reaction/Blood Tranf: No (N/A) Family Medical History Cancer, Hypertension Physical Exam Vital Signs Vital Signs - First Documented 06/23/19 18:10 Temp 36.1 Pulse 107 Resp 18 B/P (MAP) 0/0 (0) Pulse Ox 97 Capillary Refill : Height, Weight, BMI Height: 5'3.00" Weight: 142lbs. 0oz. 64.801712dd; 26.7 BMI Method:Stated General Appearance: WD/WN, no apparent distress, other (alert and oriented no distress) Neck: non-tender, full range of motion Respiratory: no respiratory distress, no accessory muscle use Gastrointestinal: normal bowel sounds, non tender Extremities: other (limited range of motion to the left shoulder related to pain. There is some ecchymosis laterally over the shoulder but no obvious deformity or swelling. Large ecchymosis over the dorsal aspect of the proximal forearm, skin avulsion to the dorsal ulnar side of the left forearm. Nothing to suture. There is a laceration about 10 cm in length the left anterior knee, the skin is thick enough to hold a stitch still very thin, unsure how long the sutures will hold. The skin edges are gaping by about 4 cm.) Neurologic/Psychiatric: alert, normal mood/affect, oriented x 3 Leeanna Coma Score Best Eye Response: (4) Open Spontaneously Best Verbal Response: (5) Oriented Best Motor Response: (6) Obeys Commands Leeanna Total: 15 Procedures/Interventions Wound Location: Upper Extremities Wound Length (cm): 10 Wound's Depth, Shape: linear Wound Explored: clean Irrigated w/ Saline (ccs): 200 Anesthesia: 1% Lidocaine Suture: Prolene Suture Size: 5-0 Number of Sutures: 10 Layer Closure?: 0 He was anesthetized with 1% lidocaine without epinephrine then gently scrubbed with routine/saline solution and irrigated with 7, N was uncontrolled and laid back into place and intact in place loosely with a total of 10 sutures size 5-0 Prolene. Minor simple interrupted and one is continuous at the most superior aspect of the wound. Progress/Results/Core Measures Results/Orders My Orders Orders - NEEL OLSEN APRN Shoulder, Left, 3 Views (06/23/19 18:34) Forearm, Left, 2 Views (06/23/19 18:34) Knee, Left, 3 Views (06/23/19 18:34) Hydrocodone/Apap 5/325 Tablet (Lortab 5 (06/23/19 19:00) Medications Given in ED Current Medications Medications Dose Ordered Sig/Clare Route Start Time Stop Time Status Last Admin Dose Admin Acetaminophen/ Hydrocodone Bitart 0.5 tab ONCE ONCE PO 06/23/19 19:00 06/23/19 19:01 DC 06/23/19 19:12 0.5 TAB Vital Signs/I&O 06/23/19 18:10 Temp 36.1 Pulse 107 Resp 18 B/P (MAP) 0/0 (0) Pulse Ox 97 Diagnostic Imaging Diagonstic Imaging: Xray Comments NAME: MILI WILKES MED REC#: [id number] PT STATUS: REG ER : 1935 PHYSICIAN: NEEL OLSEN APRN ADMIT DATE: 06/23/19/ER Draft POSDate of Exam:06/23/19 SHOULDER, LEFT, 3 VIEWS CLINICAL HISTORY: Fall. Left shoulder pain. COMPARISON: None TECHNIQUE: 3 views of the left shoulder. FINDINGS: There is no acute fracture or dislocation of the left shoulder. Alignment is anatomic. The imaged joint spaces are preserved. No joint effusion is seen in the left shoulder. The included soft tissues are unremarkable. IMPRESSION: 1. No acute fracture or dislocation in the left shoulder. Dictated on workstation # [id number] Dict: 06/23/191905 Trans: 06/23/191908 JOSE [id number] Interpreted by: MARGUERITE DEXTER DO Electronically signed by: NAME: MILI WILKES [facility] REC#: [id number] PT STATUS: REG ER : 1935 PHYSICIAN: NEEL OLSEN APRN ADMIT DATE: 06/23/19/ER Draft POSDate of Exam:06/23/19 FOREARM, LEFT, 2 VIEWS CLINICAL HISTORY: Fall. Left arm pain. COMPARISON: None TECHNIQUE: 2 views of the left forearm. FINDINGS: There is no acute fracture or dislocation of the left forearm. Surgical hardware is seen in the distal left radius. Generalized osteopenia is noted. Alignment is anatomic. The imaged joint spaces are preserved. The included soft tissues are unremarkable. IMPRESSION: 1. No acute fracture or dislocation in the left forearm. Dictated on workstation # [id number] Dict: 06/23/191907 Trans: 06/23/191910 JOSE [id number] Interpreted by: MARGUERITE DEXTER DO Electronically signed by: Departure Communication (Admissions) I recommended an antibiotic for infection prophylaxis, however she states she is allergic to most antibiotics. She states she typically gets a shot of antibiotics at the doctor's office but doesn't know the name of it. She did refuse us to check her blood pressure here as well. Impression Primary Impression: Knee laceration Qualified Codes: S81.012A - Laceration without foreign body, left knee, initial encounter Additional Impression: Skin tear of forearm without complication Qualified Codes: S51.812A - Laceration without foreign body of left forearm, initial encounter Disposition: HOME, SELF-CARE Condition: Stable Departure-Patient Inst. Decision time for Depature: 19:02 Referrals: MIRIAN MUHAMMAD MD (PCP/Family) Primary Care Physician Patient Instructions: Wound Care, Laceration Repair With Stitches (DC) Add. Discharge Instructions: 1. Change the dressing every other day 2. Return to ER for any sign of infection such as redness or swelling or you can see Dr. Muhammad for this. Return to ER or Dr. Muhammad's office to have the stitches removed in 10 days. Try to keep them dry as best he can. Leave the dressing on the arm for 10 days until you see Dr. Muhammad. All discharge instructions reviewed with patient and/or family. Voiced understanding. Copy Copies To 1: MIRIAN MUHAMMAD MD, PETER J APRN Jun 23, 2019 18:46 POS
[2019-06-23] MEDS ORDERED: HYDROcodone/APAP 5 MG/325 MG (LORTAB) TAB PO ONE (19:00)
--- NOTE | 2019-06-23 19:09 | Diagnostic Imaging Report ---
CLINICAL HISTORY: Fall. Left shoulder pain. COMPARISON: None TECHNIQUE: 3 views of the left shoulder. FINDINGS: There is no acute fracture or dislocation of the left shoulder. Alignment is anatomic. The imaged joint spaces are preserved. No joint effusion is seen in the left shoulder. The included soft tissues are unremarkable. IMPRESSION: 1. No acute fracture or dislocation in the left shoulder. Dictated by: Dictated on workstation # [id number]
--- NOTE | 2019-06-23 19:10 | Diagnostic Imaging Report ---
CLINICAL HISTORY: Fall. Left knee pain. COMPARISON: None TECHNIQUE: 3 views of the left knee. FINDINGS: There is no acute fracture or dislocation of the left knee. Alignment is anatomic. The imaged joint spaces are preserved. No joint effusion is seen in the left knee. Generalized osteopenia is noted. The included soft tissues are unremarkable. IMPRESSION: 1. No acute fracture or dislocation of the left knee. Dictated by: Dictated on workstation # [id number]
--- NOTE | 2019-06-23 19:12 | Diagnostic Imaging Report ---
CLINICAL HISTORY: Fall. Left arm pain. COMPARISON: None TECHNIQUE: 2 views of the left forearm. FINDINGS: There is no acute fracture or dislocation of the left forearm. Surgical hardware is seen in the distal left radius. Generalized osteopenia is noted. Alignment is anatomic. The imaged joint spaces are preserved. The included soft tissues are unremarkable. IMPRESSION: 1. No acute fracture or dislocation in the left forearm. Dictated by: Dictated on workstation # [id number]
[2019-06-23 19:20] VITALS: BP 0/0
--- NOTE | 2019-06-23 19:20 | NUR ---
PT HAS A HOMECAREGIVER THAT IS EN ROUTE TO ASSIST PT. PT ASKS IF SHE CAN REMAIN IN ROOM 8 UNTIL THEY ARRIVE
--- NOTE | 2019-06-23 19:33 | NUR ---
PT'S EVENTS SPECIALIST ARRIVES TO ASSIST PT TO CAR
== END 2019-06-23 19:20 | disposition home or self-care (01) ==
LOC: EDUNIT# 18:07 → ER 18:09
DX: S81.012A Laceration without foreign body, left knee, initial encounter (principal); S51.812A Laceration without foreign body of left forearm, initial encounter; J44.9 Chronic obstructive pulmonary disease, unspecified; G35 Multiple sclerosis; Z90.89 Acquired absence of other organs; Z90.49 Acquired absence of other specified parts of digestive tract; Z90.710 Acquired absence of both cervix and uterus; Z88.1 Allergy status to other antibiotic agents; Z88.0 Allergy status to penicillin; Z88.2 Allergy status to sulfonamides; Z88.8 Allergy status to other drugs, medicaments and biological substances; Z82.49 Family history of ischemic heart disease and other diseases of the circulatory system; W18.39XA Other fall on same level, initial encounter
CPT/HCPCS: 12005; 73030; 73090; 73562

== ENCOUNTER 2019-08-13 16:32 | Emergency (ER) | payer MEDICARE, OTHER ==
[~2019-08-13] VITALS: Ht 157.5 cm; Wt 54.5 kg
[2019-08-13] MEDS ORDERED: NS IV 1000 ML 1,000 ML IV SCH (16:46)
[2019-08-13 16:52] LABS: BASOPHILS % (AUTO) 0 % (0-10); EOSINOPHILS % (AUTO) 0 % (0-10); HEMATOCRIT 42 % (35-52); HEMOGLOBIN 13.6 G/DL (11.5-16.0); LYMPHOCYTES # (AUTO) 0.5 X 10^3 (1.0-4.0); LYMPHOCYTES % (AUTO) 3 % (12-44); MEAN CORPUSCULAR HEMOGLOBIN 30 PG (25-34); MEAN CORPUSCULAR HGB CONC 32 G/DL (32-36); MEAN CORPUSCULAR VOLUME 92 FL (80-99); MEAN PLATELET VOLUME 9.6 FL (7.4-10.4); MONOCYTES # (AUTO) 1.1 X 10^3 (0.0-1.0); MONOCYTES % (AUTO) 6 % (0-12); NEUTROPHILS # (AUTO) 18.3 X 10^3 (1.8-7.8); NEUTROPHILS % (AUTO) 92 % (42-75); PLATELET COUNT 311 10^3/uL (130-400); RED CELL DISTRIBUTION WIDTH 14.6 % (10.0-14.5); WHITE BLOOD COUNT 19.9 10^3/uL (4.3-11.0)
[2019-08-13] MEDS ORDERED: ONDANSETRON 4 MG/2 ML (SDV) Z0FRAN IVP ONE (17:00)
[2019-08-13 17:05] LABS: ALANINE AMINOTRANSFERASE 14 U/L (0-55); ALBUMIN 3.7 GM/DL (3.2-4.5); ALKALINE PHOSPHATASE 119 U/L (40-136); BILIRUBIN,TOTAL 0.5 MG/DL (0.1-1.0); BUN/CREATININE RATIO 13; CALCIUM 9.1 MG/DL (8.5-10.1); CARBON DIOXIDE 21 MMOL/L (21-32); CHLORIDE 99 MMOL/L (98-107); CREATININE SERUM 0.89 MG/DL (0.60-1.30); GFR ESTIMATED > 60; GLUCOSE 201 MG/DL (70-105); POTASSIUM 4.6 MMOL/L (3.6-5.0); SODIUM 135 MMOL/L (135-145); TOTAL PROTEIN 6.8 GM/DL (6.4-8.2)
[2019-08-13 17:23] LABS: LYMPHOCYTES % (MANUAL) 3 %; MONOCYTES % (MANUAL) 3 %; NEUTROPHILS % (MANUAL) 94 %; RBC MORPH NORMAL
--- NOTE | 2019-08-13 17:50 | NUR ---
BP cuff applied to Rt forearm, cuff began to inflate, pt began to scream, and pulled off cuff. Pt, again, refused blood pressure to be taken. Provider notified.
[2019-08-13 18:00] VITALS: BP 0/0
--- NOTE | 2019-08-13 18:22 | Diagnostic Imaging Report ---
INDICATION: Cough and fever PA and lateral chest Heart size and pulmonary vascularity are normal. Lungs are clear. There are no effusions or pneumothoraces. IMPRESSION: Negative chest Dictated by: Dictated on workstation # [id number]
[2019-08-13 19:09] LABS: BILIRUBIN,URINE NEGATIVE (NEGATIVE); CLARITY,URINE CLOUDY; COLOR,URINE YELLOW; GLUCOSE, URINE (UA) NEGATIVE (NEGATIVE); KETONES,URINE 1+ (NEGATIVE); LEUKOCYTE ESTERASE ,URINE 2+ (NEGATIVE); NITRITE,URINE POSITIVE (NEGATIVE); PROTEIN,URINE TRACE (NEGATIVE)
[2019-08-13 19:20] LABS: WBC,URINE >100 /HPF
[2019-08-13 19:21] LABS: BACTERIA,URINE MODERATE /HPF
[2019-08-13] MEDS ORDERED: ONDA4TAB11 PO (19:31)
--- NOTE | 2019-08-13 19:34 | ED General ---
General Chief Complaint: Cough/Cold/Flu Symptoms Stated Complaint: CONGESTION,N/V Nursing Triage Note: Pt to room #8 via [facility] ems cart from home with c/o cough, fever, nausea, vomiting, and diarrhea x3 days. Pt states, "I cough so hard I puke and can't stop." Pt reports diffuse abd discomfort. Attempt made to Rt forearm to obtain blood pressure reading. Cuff began to inflate, pt began to yell in pain, and pulled off cuff. Provider in room during traige and aware of refusal. Initial O2 sat 89% via RA. A&OX4. Nursing Sepsis Screen: Possible Sepsis Risk History of Present Illness Date Seen by Provider: Aug 13, 2019 Time Seen by Provider: 16:40 Initial Comments 83-year-old female presents for cough, nausea and vomiting. She reports her symptoms of been present for 3 days. She reports getting the flu vaccine this fall. Timing/Duration: 2-3 Days Severity: Mild Associated Systoms: Denies Symptoms, Cough, Fever/Chills, Nausea/Vomiting Allergies and Home Medications Allergies Coded Allergies: arformoterol (Verified Allergy, Intermediate, TREMORS, 12/16/18) azithromycin (Verified Allergy, Intermediate, RASH, 12/16/18) cefadroxil (Verified Allergy, Intermediate, RASH, 12/16/18) cephalexin (Verified Allergy, Intermediate, JAW PAIN, 12/16/18) levofloxacin (Verified Allergy, Intermediate, JOINT PAIN, 12/16/18) Penicillins (Verified Allergy, Unknown, 12/16/18) Sulfa (Sulfonamide Antibiotics) (Verified Allergy, Unknown, 12/16/18) albuterol (Verified Allergy, Unknown, 12/16/18) ciprofloxacin (Verified Allergy, Unknown, 12/16/18) erythromycin base (Verified Allergy, Unknown, 12/16/18) vancomycin (Verified Adverse Reaction, Unknown, HIVES, 12/16/18) HAD ITCHING AROUND SCALP Uncoded Allergies: "CYCLINES" (Allergy, Unknown, 10/02/14) Home Medications Hydrocodone/Acetaminophen 1 Each Tablet, 0.5 TAB PO Q4-6HR PRN for PAIN-MODERATE LAST FILLED #90 04-20-18 Prescribed by: MONI ROMEO on 12/21/18 1008 Ondansetron 4 Mg Tab.rapdis, 4 MG PO Q6H PRN for NAUSEA/VOMITING Prescribed by: HÉCTOR JARRETT on 08/13/19 193 Patient Home Medication List Home Medication List Reviewed: Yes Review of Systems Review of Systems Constitutional: no symptoms reported, see HPI Respiratory: see HPI, cough Gastrointestinal: see HPI, nausea, vomiting Genitourinary: see HPI, dysuria All Other Systems Reviewed Negative Unless Noted: Yes Past Dmonceo-Mewqsi-Okzbfl Hx Past Med/Social Hx: Reviewed Nursing Past Med/Soc Hx Patient Social History Alcohol Use: Denies Use Recreational Drug Use: No Smoking Status: Never a Smoker 2nd Hand Smoke Exposure: No Recent Foreign Travel: No Contact w/Someone Who Travel: No Recent Infectious Disease Expo: No Recent Hopitalizations: No (SKULL FX.) Immunizations Up To Date Tetanus Booster (TDap): Less than 5yrs Date of Pneumonia Vaccine: May 18, 2019 Date of Influenza Vaccine: May 31, 2016 Seasonal Allergies Seasonal Allergies: No Past Medical History Surgeries: Yes (LEFT WRIST FX-PLATE AND SCREWS) Adenoidectomy, Appendectomy, Gallbladder, Hysterectomy, Lumpectomy, Tonsillectomy Respiratory: Yes Pneumonia, COPD Cardiac: No Neurological: Yes (Stated history of Multiple Sclerosis- diagnosed in 1980.) Multiple Sclerosis Reproductive Disorders: No [employer]IL [employer] History: Hysterectomy Sexually Transmitted Disease: No HIV/AIDS: No Genitourinary: Yes (Interstitial cystitis) Gastrointestinal: No Musculoskeletal: Yes (F[place] FALLS) Fractures Endocrine: No HEENT: Yes (Cataracts removed) Cataract, Glaucoma Loss of Vision: Denies Hearing Impairment: Denies Cancer: No Psychosocial: No Integumentary: Yes (Paper thin skin) Blood Disorders: No Adverse Reaction/Blood Tranf: No (N/A) Family Medical History Cancer, Hypertension Physical Exam Vital Signs Vital Signs - First Documented 08/13/19 16:32 Temp 37.3 Pulse 101 Resp 20 Pulse Ox 4 O2 Delivery Nasal Cannula O2 Flow Rate 2.00 Capillary Refill : Less Than 3 Seconds Height, Weight, BMI Height: 5'3.00" Weight: 142lbs. 0oz. 64.755629sx; 21.00 BMI Method:Stated General Appearance: No Apparent Distress, WD/WN Eyes: Bilateral Eye Normal Inspection, Bilateral Eye PERRL, Bilateral Eye EOMI HEENT: PERRL/EOMI, TMs Normal, Normal ENT Inspection, Pharynx Normal Neck: Full Range of Motion, Normal Inspection, Non Tender, Supple Respiratory: Chest Non Tender, Lungs Clear, Normal Breath Sounds Cardiovascular: Regular Rate, Rhythm, No Edema Gastrointestinal: Normal Bowel Sounds, Non Tender, Soft Back: Normal Inspection, No CVA Tenderness, No Vertebral Tenderness Extremity: Normal Capillary Refill, Normal Inspection, Normal Range of Motion, No Pedal Edema Neurologic/Psychiatric: Alert, Oriented x3, No Motor/Sensory Deficits, Normal Mood/Affect Skin: Normal Color, Warm/Dry Focused Exam Lactate Level 08/13/19 16:49: Lactic Acid Level 2.80*H 08/13/19 19:18: Lactic Acid Level 2.91*H Lactic Acid Level Laboratory Tests Test 08/13/19 16:49 08/13/19 19:18 Lactic Acid Level 2.80 MMOL/L (0.50-2.00) *H 2.91 MMOL/L (0.50-2.00) *H Procedures/Interventions Suture Size: 5-0 Progress/Results/Core Measures Suspected Sepsis Recent Fever Within 48 Hours: Yes Infection Criteria Present: Documented Infection New/Unexplained Altered Menta: No Sepsis Screen: Possible Sepsis Risk SIRS Temperature: Pulse: 101 Respiratory Rate: 20 Laboratory Tests 08/13/19 16:35: White Blood Count 19.9H Blood Pressure / Mean: 08/13/19 16:49: Lactic Acid Level 2.80*H 08/13/19 19:18: Lactic Acid Level 2.91*H Laboratory Tests 08/13/19 16:35: Creatinine 0.89, Platelet Count 311, Total Bilirubin 0.5 Results/Orders Lab Results Laboratory Tests Test 08/13/19 16:35 08/13/19 16:49 08/13/19 19:00 08/13/19 19:18 Range/Units White Blood Count 19.9 H 4.3-11.0 10^3/uL Red Blood Count 4.60 4.35-5.85 10^6/uL Hemoglobin 13.6 11.5-16.0 G/DL Hematocrit 42 35-52 % Mean Corpuscular Volume 92 80-99 FL Mean Corpuscular Hemoglobin 30 25-34 PG Mean Corpuscular Hemoglobin Concent 32 32-36 G/DL Red Cell Distribution Width 14.6 H 10.0-14.5 % Platelet Count 311 130-400 10^3/uL Mean Platelet Volume 9.6 7.4-10.4 FL Neutrophils (%) (Auto) 92 H 42-75 % Lymphocytes (%) (Auto) 3 L 12-44 % Monocytes (%) (Auto) 6 0-12 % Eosinophils (%) (Auto) 0 0-10 % Basophils (%) (Auto) 0 0-10 % Neutrophils # (Auto) 18.3 H 1.8-7.8 X 10^3 Lymphocytes # (Auto) 0.5 L 1.0-4.0 X 10^3 Monocytes # (Auto) 1.1 H 0.0-1.0 X 10^3 Eosinophils # (Auto) 0.0 0.0-0.3 10^3/uL Basophils # (Auto) 0.0 0.0-0.1 10^3/uL Neutrophils % (Manual) 94 % Lymphocytes % (Manual) 3 % Monocytes % (Manual) 3 % Blood Morphology Comment NORMAL Sodium Level 135 135-145 MMOL/L Potassium Level 4.6 3.6-5.0 MMOL/L Chloride Level 99 98-107 MMOL/L Carbon Dioxide Level 21 21-32 MMOL/L Anion Gap 15 H 5-14 MMOL/L Blood Urea Nitrogen 12 7-18 MG/DL Creatinine 0.89 0.60-1.30 MG/DL Estimat Glomerular Filtration Rate > 60 BUN/Creatinine Ratio 13 Glucose Level 201 H 70-105 MG/DL Calcium Level 9.1 8.5-10.1 MG/DL Corrected Calcium 9.3 8.5-10.1 MG/DL Total Bilirubin 0.5 0.1-1.0 MG/DL Aspartate Amino Transf (AST/SGOT) 27 5-34 U/L Alanine Aminotransferase (ALT/SGPT) 14 0-55 U/L Alkaline Phosphatase 119 40-136 U/L Total Protein 6.8 6.4-8.2 GM/DL Albumin 3.7 3.2-4.5 GM/DL Lactic Acid Level 2.80 *H 2.91 *H 0.50-2.00 MMOL/L Urine Color YELLOW Urine Clarity CLOUDY Urine pH 6.0 5-9 Urine Specific Fancy Gap 1.025 H 1.016-1.022 Urine Protein TRACE NEGATIVE Urine Glucose (UA) NEGATIVE NEGATIVE Urine Ketones 1+ H NEGATIVE Urine Nitrite POSITIVE NEGATIVE Urine Bilirubin NEGATIVE NEGATIVE Urine Urobilinogen 0.2 < = 1.0 MG/DL Urine Leukocyte Esterase 2+ H NEGATIVE Urine RBC (Auto) 2+ H NEGATIVE Urine RBC 5-10 H /HPF Urine WBC >100 H /HPF Urine Crystals NONE /LPF Urine Bacteria MODERATE H /HPF Urine Casts NONE /LPF Urine Mucus NEGATIVE /LPF Urine Culture Indicated YES My Orders Orders - HÉCTOR JARRETT Cbc With Automated Diff (08/13/19 16:46) Comprehensive Metabolic Panel (08/13/19 16:46) Ua Culture If Indicated (08/13/19 16:46) Blood Culture (08/13/19 16:46) Lactic Acid Analyzer (08/13/19 16:46) Ed Iv/Invasive Line Start (08/13/19 16:46) Ns Iv 1000 Ml (Sodium Chloride 0.9%) (08/13/19 16:46) Ondansetron Injection (Zofran Injectio (08/13/19 17:00) Manual Differential (08/13/19 16:35) Chest Pa/Lat (2 View) (08/13/19 17:40) Urine Culture (08/13/19 19:00) Rx-Ondansetron Po (Rx-Zofran Po) (08/13/19 19:55) Medications Given in ED Current Medications Medications Dose Ordered Sig/Clare Route Start Time Stop Time Status Last Admin Dose Admin Ondansetron HCl 4 mg ONCE ONCE IVP 08/13/19 17:00 08/13/19 17:01 DC 08/13/19 17:04 4 MG Vital Signs/I&O 08/13/19 08/13/19 16:32 16:32 Temp 37.3 Pulse 101 Resp 20 B/P (MAP) Pulse Ox 4 O2 Delivery Nasal Cannula Nasal Cannula O2 Flow Rate 2.00 Capillary Refill : Less Than 3 Seconds Progress Note : Time: 16:40 Progress Note Patient seen and evaluated, patient refuses to have her blood pressure checked, she understands that this is needed as part of her assessment. Patient reports that she will leave if we require her to have a blood pressure reading, the cuff is tight on her arm and she does not like it. We will obtain labs and give Zofran 4 mg for nausea and normal saline 1 L. 1730 patient reports be feeling better. Her IV is infusing, no vomiting since admission 1830 patient reports nausea has improved. She fell refused to allow us to check her blood pressure. Awaiting to get her UA. 1929 patient now reports she was seen earlier today at Dr. Muhammad's office and given an IM injection for UTI. She is scheduled to be seen daily for the antibiotics. Reviewed labs with her, discussed admission for IV treatment versus continued outpatient. She refuses to be admitted, reports she feels better and will not let us obtain a B/P. Pulse is 80-90, temp 98.4. Sister and nephew here. Discharge instructions and return precautions reviewed with the patient. All questions answered. Diagnostic Imaging Diagonstic Imaging: Xray Plain Films/CT/US/NM/MRI: chest Comments [facility]. [place], [place] NAME: MILI WILKES [facility] REC#: [id number] PT STATUS: REG ER : 1935 PHYSICIAN: HÉCTOR JARRETT ADMIT DATE: 08/13/19/ER Signed Date of Exam:08/13/19 CHEST PA/LAT (2 VIEW) INDICATION: Cough and fever PA and lateral chest Heart size and pulmonary vascularity are normal. Lungs are clear. There are no effusions or pneumothoraces. IMPRESSION: Negative chest Dictated by: Dictated on workstation # [id number] Dict: 08/13/191819 Trans: 08/13/191822 [facility] [id number] Interpreted by: MAGI CARMEN MD Electronically signed by: MAGI CARMEN MD 08/13/191822 Reviewed: Reviewed by Me Departure Impression Primary Impression: UTI (urinary tract infection) Qualified Codes: N30.01 - Acute cystitis with hematuria Additional Impressions: Upper respiratory infection Qualified Codes: J06.9 - Acute upper respiratory infection, unspecified Nausea & vomiting Qualified Codes: R11.2 - Nausea with vomiting, unspecified Disposition: HOME, SELF-CARE Condition: Improved Departure-Patient Inst. Decision time for Depature: 19:15 Referrals: MIRIAN MUHAMMAD MD (PCP/Family) Primary Care Physician Patient Instructions: Urinary Tract Infection, Adult (DC) Add. Discharge Instructions: Use Zofran every 8 hours as needed for nausea and vomiting. Take antibiotic as prescribed. Increase water intake, 16 ounces every 3-4 hours while awake. Follow-up with your primary care provider if symptoms are not improving or worsen. Return to the emergency department for new, urgent health care needs. All discharge instructions reviewed with patient and/or family. Voiced understanding. Scripts Ondansetron (Ondansetron Odt) 4 Mg Tab.rapdis 4 MG PO Q6H PRN for NAUSEA/VOMITING, #8 TAB 0 Refills Prov: HÉCTOR JARRETT 08/13/19 HÉCTOR JARRETT Aug 13, 2019 19:33
[2019-08-13] MEDS ORDERED: RX-ONDANSETRON 4 MG ODT (ZOFRAN) PPK #4 PO STA (19:55)
== END 2019-08-13 20:00 | disposition home or self-care (01) ==
LOC: ER 16:32 → EDUNIT# 16:32 → ER 20:00
DX: N39.0 Urinary tract infection, site not specified (principal); J06.9 Acute upper respiratory infection, unspecified; J44.9 Chronic obstructive pulmonary disease, unspecified; G35 Multiple sclerosis; Z88.1 Allergy status to other antibiotic agents; Z88.0 Allergy status to penicillin; Z88.2 Allergy status to sulfonamides; Z88.8 Allergy status to other drugs, medicaments and biological substances; Z90.89 Acquired absence of other organs; Z90.49 Acquired absence of other specified parts of digestive tract; Z90.710 Acquired absence of both cervix and uterus; Z82.49 Family history of ischemic heart disease and other diseases of the circulatory system
CPT/HCPCS: 36415; 71046; 80053; 81000; 83605; 85007; 85027; 87040; 87088; 96361; 96374

== ENCOUNTER 2019-11-07 14:40 | Outpatient (RCR) | payer MEDICARE, OTHER ==
[2019-10-18 11:00] VITALS: BP 0/0
[2019-10-18] MEDS: LINEZOLID IVPB 300 ML IV SCH ×2 (12:39→20:49)
[2019-10-18 21:49] VITALS: BP 0/0
[2019-10-19] MEDS: LINEZOLID IVPB 300 ML IV SCH ×2 (08:27→20:26)
[2019-10-19 08:29] VITALS: BP 0/0
--- NOTE | 2019-10-19 10:06 | NUR ---
ZYVOX INFUSED AND FLUSHED WITH 20CC NS, PATIENT LEFT AT 0935 WITH NO COMPLAINTS.
[2019-10-19 21:45] VITALS: BP 0/0
[2019-10-20 09:17] VITALS: BP 0/0
[2019-10-20] MEDS: LINEZOLID IVPB 300 ML IV SCH ×2 (09:46→21:11)
[2019-10-20 22:12] VITALS: BP 0/0
[2019-10-21 08:52] VITALS: BP 0/0
[2019-10-21] MEDS: LINEZOLID IVPB 300 ML IV SCH ×2 (08:55→20:40)
[2019-10-21 21:48] VITALS: BP 0/0
[2019-10-23 08:50] VITALS: BP 0/0
[2019-10-23] MEDS: LINEZOLID IVPB 300 ML IV SCH ×3 (08:54→21:00)
--- NOTE | 2019-10-23 21:00 | NUR ---
iv zyvoxx started without difficulty picc line patent. 2200 iv infused picc line flushed and pt dcd to home via pov vss t 36.7 hr 85 resp 20 02 100 room air
[2019-10-24] MEDS: LINEZOLID IVPB 300 ML IV SCH ×2 (09:02→21:00)
[2019-10-24 10:05] VITALS: BP 0/0
[2019-10-25] MEDS: LINEZOLID IVPB 300 ML IV SCH (08:58)
[2019-10-25 08:59] VITALS: BP 0/0
[2019-10-25 22:30] VITALS: BP 0/0
[~2019-11-07] VITALS: Ht 157.5 cm; Wt 54.5 kg
[~2019-11-07 14:40] MED LIST changes: -HYDR-3812 PO; +LINEZOLID IVPB 300 ML IV ONE; +ONDA4TAB11 PO; +TRM50T PO
[2019-11-07 15:00] VITALS: BP 0/0
== END 2019-11-07 15:00 | disposition home or self-care (01) ==
LOC: SDC 14:40
DX: N39.0 Urinary tract infection, site not specified (principal); R11.2 Nausea with vomiting, unspecified
CPT/HCPCS: 36569; 76937; 96365; 99211

== ENCOUNTER 2020-02-26 16:15 | Inpatient (IN) | payer MEDICARE, OTHER ==
[~2020-02-26] VITALS: Ht 157.6 cm; Wt 68.2 kg
[~2020-02-26 16:15] MED LIST changes: -LINEZOLID IVPB 300 ML IV ONE
--- NOTE | 2020-02-26 16:30 | NUR ---
Pt refuses further BP's to be taken. Pt states, "I have a doctors order that says I am not to have blood pressures taken!" Pt refuses blood pressure readings to be taken on upper or lower extremities.
[2020-02-26] MEDS ORDERED: ONDANSETRON 4 MG/2 ML (SDV) Z0FRAN ONE (16:34)
[2020-02-26] MEDS ORDERED: LACTATED RINGERS 1,000 ML IV ONE ×2 (16:34→16:35)
[2020-02-26] MEDS ORDERED: NS IV 1000 ML 1,000 ML IV SCH (16:35)
[2020-02-26] MEDS ORDERED: ONDANSETRON 4 MG/2 ML (SDV) Z0FRAN IVP ONE (16:45)
--- NOTE | 2020-02-26 16:45 | NUR ---
Pt noted to be incontinent of bowel et bladder. Pt cleaned et repositioned. No skin break down noted.
[2020-02-26 17:09] LABS: BASOPHILS % (AUTO) 0 % (0-10); EOSINOPHILS % (AUTO) 1 % (0-10); HEMATOCRIT 39 % (35-52); HEMOGLOBIN 12.1 G/DL (11.5-16.0); LYMPHOCYTES # (AUTO) 0.1 X 10^3 (1.0-4.0); LYMPHOCYTES % (AUTO) 2 % (12-44); MEAN CORPUSCULAR HEMOGLOBIN 29 PG (25-34); MEAN CORPUSCULAR HGB CONC 31 G/DL (32-36); MEAN CORPUSCULAR VOLUME 93 FL (80-99); MEAN PLATELET VOLUME 10.4 FL (7.4-10.4); MONOCYTES % (AUTO) 0 % (0-12); NEUTROPHILS # (AUTO) 5.8 X 10^3 (1.8-7.8); NEUTROPHILS % (AUTO) 97 % (42-75); PLATELET COUNT 323 10^3/uL (130-400); RED CELL DISTRIBUTION WIDTH 15.2 % (10.0-14.5); WHITE BLOOD COUNT 5.9 10^3/uL (4.3-11.0)
[2020-02-26 17:11] LABS: BILIRUBIN,URINE NEGATIVE (NEGATIVE); CLARITY,URINE TURBID; COLOR,URINE YELLOW; GLUCOSE, URINE (UA) NEGATIVE (NEGATIVE); KETONES,URINE NEGATIVE (NEGATIVE); LEUKOCYTE ESTERASE ,URINE 3+ (NEGATIVE); NITRITE,URINE POSITIVE (NEGATIVE); PROTEIN,URINE 2+ (NEGATIVE)
[2020-02-26 17:17] LABS: BACTERIA,URINE LARGE /HPF; WBC,URINE TNTC /HPF
[2020-02-26 17:17] LABS: ALBUMIN 3.5 GM/DL (3.2-4.5); POTASSIUM 3.9 MMOL/L (3.6-5.0)
[2020-02-26 17:18] LABS: CALCIUM 8.9 MG/DL (8.5-10.1)
[2020-02-26 17:20] LABS: INR 0.9 (0.8-1.4); PROTHROMBIN TIME PATIENT 12.6 SEC (12.2-14.7)
[2020-02-26 17:21] LABS: BILIRUBIN,TOTAL 0.6 MG/DL (0.1-1.0)
[2020-02-26 17:23] LABS: CREATININE SERUM 1.17 MG/DL (0.60-1.30)
[2020-02-26 17:29] LABS: NEUTROPHILS % (MANUAL) 76 %
[2020-02-26 17:30] LABS: ANISOCYTOSIS SLIGHT; BAND NEUTROPHILS 20 %; BASOPHILS % (MANUAL) 0 %; EOSINOPHILS % (MANUAL) 0 %; LYMPHOCYTES % (MANUAL) 3 %; MONOCYTES % (MANUAL) 1 %; TOXIC GRANULATION/VACUOLAZATIO 1+
--- NOTE | 2020-02-26 17:34 | Diagnostic Imaging Report ---
INDICATION: Weakness and fever. TIME OF EXAM: 05:21 p.m. COMPARISON: Correlation is made with prior chest from 08/13/2019. FINDINGS: The heart size is stable. Right hemidiaphragm is chronically elevated. No infiltrates are detected. No significant effusion or pneumothorax is seen. IMPRESSION: Stable chest. No acute feature is identified. Dictated by: Dictated on workstation # [id number]
--- NOTE | 2020-02-26 17:50 | NUR ---
Provider speaking with sister, Oksana Castro. ([phone])
[2020-02-26] MEDS ORDERED: MEROPENEM 500 MG in WATER (STERILE) FOR INJECTION 10 ML IV ONE (18:00)
--- NOTE | 2020-02-26 18:11 | NUR ---
Risks of not allowing staff to take blood pressure readings reviewed with pt. Pt continues to refuse all blood pressures to be taken. Provider aware.
--- NOTE | 2020-02-26 18:16 | ED General ---
General Chief Complaint: Fever-Adult/Adol Stated Complaint: WEAKNESS,FEVER Nursing Triage Note: Pt presents to [facility] via [facility] em[facility] cart from home with c/o nausea, vomiting, SOA, et fever. Ems advise pt was unaware she was febrile. Pt reports she experienced x5 episodes of emesis beginning at 1300 on this day. Pt reports earlier in this day, she felt well enough to have her nails done at her beauty shop. Pt denies pain or discomfort at this time. Upon arrival pt noted to be lethargic with dried emesis on clothing. A&OX4. Nursing Sepsis Screen: Possible Sepsis Risk History of Present Illness Date Seen by Provider: Feb 26, 2020 Time Seen by Provider: 16:30 Initial Comments 84-year-old female arrives via EMS for abdominal pain, shortness of air, fevers, and nausea and vomiting. She was treated for UTI approximately 2 weeks ago and took a 5 day course of antibiotics. She has multiple known antibiotic allergies, most cause skin rash. She denies any known COVID-19 exposure however she has not been quarantining at home. Upon admission, she had diarrhea times 2, incontinent. She reports being DNR. Took Tylenol 500 mg orally, at 1500. She went to have her hair and nails done at noon at the mall, ate lunch at 1300 and then started feeling sick. Timing/Duration: 1-2 Days Associated Systoms: No Chest Pain; Cough, Fever/Chills, Loss of Appetite, Malaise, Nausea/Vomiting; No Rash; Shortness of Air, Weakness Allergies and Home Medications Allergies Coded Allergies: arformoterol (Verified Allergy, Intermediate, TREMORS, 12/16/18) azithromycin (Verified Allergy, Intermediate, RASH, 12/16/18) cefadroxil (Verified Allergy, Intermediate, RASH, 12/16/18) cephalexin (Verified Allergy, Intermediate, JAW PAIN, 12/16/18) levofloxacin (Verified Allergy, Intermediate, JOINT PAIN, 12/16/18) Penicillins (Verified Allergy, Unknown, 12/16/18) Sulfa (Sulfonamide Antibiotics) (Verified Allergy, Unknown, 12/16/18) albuterol (Verified Allergy, Unknown, 12/16/18) ciprofloxacin (Verified Allergy, Unknown, 12/16/18) erythromycin base (Verified Allergy, Unknown, 12/16/18) vancomycin (Verified Adverse Reaction, Unknown, HIVES, 12/16/18) HAD ITCHING AROUND SCALP Uncoded Allergies: "CYCLINES" (Allergy, Unknown, 10/02/14) Home Medications Hydrocodone Bit/Acetaminophen 1 Each Tablet, 0.5 TAB PO Q4-6HR PRN for PAIN- MODERATE LAST FILLED #90 04-20-18 Prescribed by: MONI ROMEO on 12/21/18 1008 Ondansetron 4 Mg Tab.rapdis, 4 MG PO Q6H PRN for NAUSEA/VOMITING Prescribed by: HÉCTOR JARRETT on 08/13/19 1931 Patient Home Medication List Home Medication List Reviewed: Yes Review of Systems Review of Systems Constitutional: see HPI, chills, fever EENTM: see HPI, no symptoms reported Respiratory: see HPI, cough, short of breath Cardiovascular: no symptoms reported, see HPI; No chest pain Gastrointestinal: see HPI; No abdominal pain; diarrhea, loss of appetite, nausea, vomiting Genitourinary: see HPI, dysuria, frequency Musculoskeletal: no symptoms reported, see HPI Skin: no symptoms reported, see HPI All Other Systems Reviewed Negative Unless Noted: Yes Past Feptnpg-Arjzch-Zyhqam Hx Past Med/Social Hx: Reviewed Nursing Past Med/Soc Hx Patient Social History Alcohol Use: Denies Use Recreational Drug Use: No Smoking Status: Never a Smoker 2nd Hand Smoke Exposure: No Recent Foreign Travel: No Contact w/Someone Who Travel: No Recent Infectious Disease Expo: No Recent Hopitalizations: No (SKULL FX.) Immunizations Up To Date Tetanus Booster (TDap): Less than 5yrs Date of Pneumonia Vaccine: May 18, 2019 Date of Influenza Vaccine: May 31, 2016 Seasonal Allergies Seasonal Allergies: No Past Medical History Surgeries: Yes (LEFT WRIST FX-PLATE AND SCREWS) Adenoidectomy, Appendectomy, Gallbladder, Hysterectomy, Lumpectomy, Tonsillectomy Respiratory: Yes Pneumonia, COPD Cardiac: No Neurological: Yes (Stated history of Multiple Sclerosis- diagnosed in 1980.) Multiple Sclerosis Reproductive Disorders: No RN IMAGING History: Hysterectomy Sexually Transmitted Disease: No HIV/AIDS: No Genitourinary: Yes (Interstitial cystitis) Gastrointestinal: No Musculoskeletal: Yes ([place]) Fractures Endocrine: No HEENT: Yes (Cataracts removed) Cataract, Glaucoma Loss of Vision: Denies Hearing Impairment: Denies Cancer: No Psychosocial: No Integumentary: Yes (Paper thin skin) Blood Disorders: No Adverse Reaction/Blood Tranf: No (N/A) Family Medical History Cancer, Hypertension Physical Exam Vital Signs Vital Signs - First Documented Capillary Refill : Less Than 3 Seconds Height, Weight, BMI Height: 5'3.00" Weight: 142lbs. 0oz. 64.022743hg; 27.00 BMI Method:Stated General Appearance: No Apparent Distress, WD/WN HEENT: PERRL/EOMI, TMs Normal, Normal ENT Inspection, Pharynx Normal Neck: Full Range of Motion, Normal Inspection, Non Tender, Supple Respiratory: Chest Non Tender, Lungs Clear, Normal Breath Sounds Cardiovascular: Regular Rate, Rhythm, No Edema, No Murmur, Normal Peripheral Pulses Gastrointestinal: Normal Bowel Sounds, Non Tender, Soft Back: Normal Inspection, No CVA Tenderness, No Vertebral Tenderness Extremity: Normal Capillary Refill, Normal Inspection, Normal Range of Motion, Non Tender Neurologic/Psychiatric: Alert, Oriented x3, No Motor/Sensory Deficits, Normal Mood/Affect Focused Exam Lactate Level 02/26/20 16:30: Lactic Acid Level 5.77*H Lactic Acid Level Laboratory Tests Test 02/26/20 16:30 Lactic Acid Level 5.77 MMOL/L (0.50-2.00) *H Focused Exam Sepsis Stage: Severe Sepsis Possible Source: Genitouriary Lactate Level 02/26/20 16:30: Lactic Acid Level 5.77*H Time of Focused Exam: 18:15 Respiratory: Chest Non Tender, Lungs Clear, Normal Breath Sounds Cardiovascular: No Edema, No Murmur, Normal Peripheral Pulses, Tachycardia Capillary Refill: Less Than 3 Seconds Skin: normal color, warm/dry, ecchymosis (bilat UEs, present on admission) Lactic Acid Level Laboratory Tests Test 02/26/20 16:30 Lactic Acid Level 5.77 MMOL/L (0.50-2.00) *H Within 3hrs of presentation: Admin fluids, Admin 30ml/kg IBW due to BMI>30, Admin ABX, Blood cultures prior to ABX's, Focus exam, Lactate level Procedures/Interventions Suture Size: 5-0 Progress/Results/Core Measures Suspected Sepsis Recent Fever Within 48 Hours: Yes Infection Criteria Present: Suspected New Infection New/Unexplained Altered Menta: No Sepsis Screen: Possible Sepsis Risk SIRS Temperature: Pulse: 133 Respiratory Rate: 20 Laboratory Tests 02/26/20 16:30: White Blood Count 5.9 Blood Pressure 114 /54 Mean: 74 02/26/20 16:30: Lactic Acid Level 5.77*H Laboratory Tests 02/26/20 16:30: Creatinine 1.17, INR Comment 0.9, Platelet Count 323, Total Bilirubin 0.6 Results/Orders Lab Results Laboratory Tests Test 02/26/20 16:30 02/26/20 16:50 Range/Units White Blood Count 5.9 4.3-11.0 10^3/uL Red Blood Count 4.15 L 4.35-5.85 10^6/uL Hemoglobin 12.1 11.5-16.0 G/DL Hematocrit 39 35-52 % Mean Corpuscular Volume 93 80-99 FL Mean Corpuscular Hemoglobin 29 25-34 PG Mean Corpuscular Hemoglobin Concent 31 L 32-36 G/DL Red Cell Distribution Width 15.2 H 10.0-14.5 % Platelet Count 323 130-400 10^3/uL Mean Platelet Volume 10.4 7.4-10.4 FL Neutrophils (%) (Auto) 97 H 42-75 % Lymphocytes (%) (Auto) 2 L 12-44 % Monocytes (%) (Auto) 0 0-12 % Eosinophils (%) (Auto) 1 0-10 % Basophils (%) (Auto) 0 0-10 % Neutrophils # (Auto) 5.8 1.8-7.8 X 10^3 Lymphocytes # (Auto) 0.1 L 1.0-4.0 X 10^3 Monocytes # (Auto) 0.0 0.0-1.0 X 10^3 Eosinophils # (Auto) 0.0 0.0-0.3 10^3/uL Basophils # (Auto) 0.0 0.0-0.1 10^3/uL Neutrophils % (Manual) 76 % Lymphocytes % (Manual) 3 % Monocytes % (Manual) 1 % Eosinophils % (Manual) 0 % Basophils % (Manual) 0 % Band Neutrophils 20 % Toxic Granulation 1+ Anisocytosis SLIGHT Prothrombin Time 12.6 12.2-14.7 SEC INR Comment 0.9 0.8-1.4 Activated Partial Thromboplast Time 20 L 24-35 SEC Sodium Level 140 135-145 MMOL/L Potassium Level 3.9 3.6-5.0 MMOL/L Chloride Level 108 H 98-107 MMOL/L Carbon Dioxide Level 15 L 21-32 MMOL/L Anion Gap 17 H 5-14 MMOL/L Blood Urea Nitrogen 17 7-18 MG/DL Creatinine 1.17 0.60-1.30 MG/DL Estimat Glomerular Filtration Rate 44 BUN/Creatinine Ratio 15 Glucose Level 125 H 70-105 MG/DL Lactic Acid Level 5.77 *H 0.50-2.00 MMOL/L Calcium Level 8.9 8.5-10.1 MG/DL Corrected Calcium 9.3 8.5-10.1 MG/DL Total Bilirubin 0.6 0.1-1.0 MG/DL Aspartate Amino Transf (AST/SGOT) 40 H 5-34 U/L Alanine Aminotransferase (ALT/SGPT) 14 0-55 U/L Alkaline Phosphatase 145 H 40-136 U/L Troponin I 0.032 H <0.028 NG/ML Total Protein 7.0 6.4-8.2 GM/DL Albumin 3.5 3.2-4.5 GM/DL Urine Color YELLOW Urine Clarity TURBID Urine pH 6.0 5-9 Urine Specific [place] 1.020 1.016-1.022 Urine Protein 2+ H NEGATIVE Urine Glucose (UA) NEGATIVE NEGATIVE Urine Ketones NEGATIVE NEGATIVE Urine Nitrite POSITIVE H NEGATIVE Urine Bilirubin NEGATIVE NEGATIVE Urine Urobilinogen 0.2 < = 1.0 MG/DL Urine Leukocyte Esterase 3+ H NEGATIVE Urine RBC (Auto) 3+ H NEGATIVE Urine RBC 5-10 H /HPF Urine WBC TNTC H /HPF Urine Squamous Epithelial Cells 5-10 /HPF Urine Crystals NONE /LPF Urine Bacteria LARGE H /HPF Urine Casts NONE /LPF Urine Mucus SMALL H /LPF Urine Culture Indicated CULTURE PENDING My Orders Orders - HÉCTOR JARRETT Ondansetron Injection (Zofran Injectio (02/26/20 16:45) Cbc With Automated Diff (02/26/20 16:35) Comprehensive Metabolic Panel (02/26/20 16:35) Blood Culture (02/26/20 16:35) Sputum Culture (02/26/20 16:35) Urinalysis (02/26/20 16:35) Urine Culture (02/26/20 16:35) Protime With Inr (02/26/20 16:35) Partial Thromboplastin Time (02/26/20 16:35) Chest 1 View, Ap/Pa Only (02/26/20 16:35) Ed Iv/Invasive Line Start (02/26/20 16:35) Troponin I (02/26/20 16:35) O2 (02/26/20 16:35) Lactic Acid Analyzer (02/26/20 16:35) Ns Iv 1000 Ml (Sodium Chloride 0.9%) (02/26/20 16:35) Ed Iv/Invasive Line Start (02/26/20 16:35) Lactated Ringers (Lr 1000 Ml Iv Solution (02/26/20 16:35) Manual Differential (02/26/20 16:30) Coronavirus Sars-Cov-2 So 2018 (02/26/20 17:26) Meropenem (Merrem 500 Mg) (02/26/20 18:00) Ekg Tracing (02/26/20 18:04) Medications Given in ED Current Medications Medications Dose Ordered Sig/Clare Route Start Time Stop Time Status Last Admin Dose Admin Lactated Ringer's 1,000 ml @ 0 mls/hr Q0M ONCE IV 02/26/20 16:35 02/26/20 16:38 DC 02/26/20 16:39 0 MLS/HR Ondansetron HCl 4 mg ONCE ONCE IVP 02/26/20 16:45 02/26/20 16:46 DC 02/26/20 16:39 4 MG Vital Signs/I&O 02/26/20 02/26/20 02/26/20 16:15 16:15 17:42 Temp 38.5 37.7 Pulse 144 133 Resp 25 20 B/P (MAP) 114/54 (74) Pulse Ox 94 94 96 O2 Delivery Nasal Cannula Room Air Nasal Cannula O2 Flow Rate 2.00 2.00 2.00 Capillary Refill : Less Than 3 Seconds Blood Pressure Mean: 74 Progress Note : Time: 16:30 Progress Note patient seen and evaluated, will start NS IV 1 Liter for tachy (120-130), febrile 100.2. B/P stable 140/80s. Patient stresses that she is DNR and does not want heroic measures. Spaulding catheter placed, to obtain UA and for patient incontinence/comfort. 1715 temp 98.9. Lactic Acid 5.7 Patient refuses to allow B/P to be taken,understands that we can not properly treat her, without knowing her b/p and how she is responding to fluids. Spoke to Dr. Mason, agrees to accept patient to room 427. Will admit for comfort care. 173 Spoke by phone to sister, with patient. Understands that she is critical and that we will start antibiotics for UTI and sepsis and treat her with IV fluids but difficult to know her status without b/p. Sister requested Art line, but patient refuses and explained this is an invasive procedure and isn't warranted bc b/p cuff hurts her arm. Explained we can try wrist or leg and she refuses. 1800 Patient alert and oriented, afebrile, Pulse 108-120. SaO2 94% on 2 L per NC. 1815 incontinent, diarrhea. 184 patient temp 98.6, pulse 110-120. Continues to refuse b/p. Transferred to Medical Floor per W/C ECG Initial ECG Impression Date: Feb 26, 2020 Initial ECG Impression Time: 16:21 Initial ECG Rate: 136 Initial ECG Rhythm: S.Tach Initial ECG Intervals: Normal Initial ECG Intervals VA 164, QRSD 66, QT 268, QTc 404 [place] P 148, QRS -18, T -24 Departure Impression Primary Impression: UTI (urinary tract infection) Qualified Codes: N30.01 - Acute cystitis with hematuria Additional Impressions: Sepsis Qualified Codes: A41.9 - Sepsis, unspecified organism Fever Qualified Codes: R50.9 - Fever, unspecified Diarrhea Qualified Codes: R19.7 - Diarrhea, unspecified Nausea & vomiting Qualified Codes: R11.2 - Nausea with vomiting, unspecified Disposition: ADMITTED INPATIENT Condition: Critical Admissions Decision to Admit Reason: Admit from ER (General) Decision to Admit/Date: Feb 26, 2020 Time/Decision to Admit Time: 17:00 Departure-Patient Inst. Referrals: MIRIAN MUHAMMAD MD (PCP/Family) Primary Care Physician Copy Copies To 1: MIRIAN MUHAMMAD MD, AMY ARNP Feb 26, 2020 18:16
--- NOTE | 2020-02-26 18:48 | NUR ---
Pt report called to JESSICA Garvey
[2020-02-26 20:00] VITALS: BP 114/54
[2020-02-26] MEDS ORDERED: ONDANSETRON 4 MG/2 ML (SDV) Z0FRAN IV PRN (22:00)
--- NOTE | 2020-02-27 02:24 | NUR ---
pt has refused vitals signs at 2400 did allow temp refuses lab sticks at this time did refuse lactic draw earlier tonight
[2020-02-27] MEDS: IBUPROFEN 600 MG (MOTRIN) TAB PO PRN ×2 (04:18→20:18)
[2020-02-27] MEDS: NS IV 1000 ML 1,000 ML IV SCH ×4 (04:40→18:55)
[2020-02-27] MEDS: MEROPENEM 500 MG/SWFI 10 ML IV PUSH IV SCH ×6 (04:41→20:15)
[2020-02-27 04:49] LABS: BASOPHILS % (AUTO) 0 % (0-10); EOSINOPHILS % (AUTO) 0 % (0-10); HEMATOCRIT 32 % (35-52); HEMOGLOBIN 9.9 G/DL (11.5-16.0); LYMPHOCYTES # (AUTO) 0.1 X 10^3 (1.0-4.0); LYMPHOCYTES % (AUTO) 1 % (12-44); MEAN CORPUSCULAR HEMOGLOBIN 28 PG (25-34); MEAN CORPUSCULAR HGB CONC 31 G/DL (32-36); MEAN CORPUSCULAR VOLUME 91 FL (80-99); MEAN PLATELET VOLUME 10.2 FL (7.4-10.4); MONOCYTES # (AUTO) 1.2 X 10^3 (0.0-1.0); MONOCYTES % (AUTO) 5 % (0-12); NEUTROPHILS # (AUTO) 21.8 X 10^3 (1.8-7.8); NEUTROPHILS % (AUTO) 94 % (42-75); PLATELET COUNT 226 10^3/uL (130-400); WHITE BLOOD COUNT 23.1 10^3/uL (4.3-11.0)
[2020-02-27 05:01] LABS: ALBUMIN 2.9 GM/DL (3.2-4.5); POTASSIUM 4.3 MMOL/L (3.6-5.0)
--- NOTE | 2020-02-27 05:01 | NUR ---
pt refuses to have her bp taken
[2020-02-27 05:02] LABS: CALCIUM 8.2 MG/DL (8.5-10.1)
[2020-02-27 05:03] LABS: TOTAL PROTEIN 5.7 GM/DL (6.4-8.2)
[2020-02-27 05:05] LABS: BILIRUBIN,TOTAL 0.4 MG/DL (0.1-1.0)
[2020-02-27 05:07] LABS: CREATININE SERUM 1.55 MG/DL (0.60-1.30)
[2020-02-27] MEDS: ACETAMINOPHEN 325 MG TABLET PO PRN (08:37)
--- NOTE | 2020-02-27 08:59 | NUR ---
PT AGREED THAT THIS RN TO COULD TAKE BP ONCE. BP 85/43 HR 101 TEMP 100.1. PT REFUSING MANUAL BP, STATES "IT WONT MAKE A DIFFERENCE ANY WAY". PT IS A/O X2-3. UNABLE TO TELL THIS RN WHAT MONTH IT IS BUT KNOWS SHE IS IN THE HOSPITAL AND IS SICK. PT NOTED TO HAVE LARGE BRUISING ALL OVER BODY. TYLENOL FOR 4/[address] TURNER NOTIFIED VIA PHONE OF ELEVATED WBC AND VS. PT HAS 22g IN RIGHT SHOULDER. PT DID NOT RECEIVE ANY OTHER IV/CENTRAL LINES IN ED D/T COMFORT CARE PART OF ADMISSION.
--- NOTE | 2020-02-27 11:05 | NUR ---
1050 UPDATED PT SISTER VIA PHONE. PT TEMP 37.0 HR 95, REFUSING BP TO BE TAKEN. PT WAS REPOSITIONED IN BED AND REPORTS FEELING OKAY AT THIS TIME. DENIES ANY OTHER NEEDS. UPDATED DR TURNER OF PT CONDITION. WILL CONTINUE TO MONITOR PT.
--- NOTE | 2020-02-27 12:00 | History & Physical-Hospitalist ---
History of Present Illness HPI/Chief Complaint Pt is an 84yo CF who presented to the ER due to abdominal pain, fever, and SOB. She reportedly we feeling well yesterday and went to the mall to get her hair and nails done and then ate lunch. Shortly after lunch she developed nausea and vomiting. She then developed profuse diarrhea in the ER. She was diagnosed with a UTI 2 weeks ago and was treated with Rocephin x5 days as an outpatient. It appears this is her third round of Rocephin this year for UTI. Apparently in the ER she refused BP checks and wanted to just be kept comfortable. She did agree to antibiotics though. This morning she allowed one blood pressure check which was 85/43. She refused further checks from the nurse. She and I discussed the importance of checking BP to help her and if we were unable to monitor her BP we could not provide her the best care to cure her. She did agree to BP checks but states otherwise she only wants to be kept comfortable and states "I may ." Source: patient Date Seen 02/27/20 Time Seen by a Provider: 11:52 Attending Physician Hamida Mason MD PCP Heron Serrato MD Referring Physician Date of Admission Feb 26, 2020 at 17:15 Home Medications & Allergies Home Medications Reviewed patient Home Medication Reconciliation performed by pharmacy medication reconciliations textile science technician and/or nursing. Patients Allergies have been reviewed. Allergies Allergies Coded Allergies arformoterol (Verified Allergy, Intermediate, TREMORS, 12/16/18) azithromycin (Verified Allergy, Intermediate, RASH, 12/16/18) cefadroxil (Verified Allergy, Intermediate, RASH, 12/16/18) cephalexin (Verified Allergy, Intermediate, JAW PAIN, 12/16/18) levofloxacin (Verified Allergy, Intermediate, JOINT PAIN, 12/16/18) Penicillins (Verified Allergy, Unknown, 12/16/18) Sulfa (Sulfonamide Antibiotics) (Verified Allergy, Unknown, 12/16/18) albuterol (Verified Allergy, Unknown, 12/16/18) ciprofloxacin (Verified Allergy, Unknown, 12/16/18) erythromycin base (Verified Allergy, Unknown, 12/16/18) vancomycin (Verified Adverse Reaction, Unknown, HIVES, 12/16/18) HAD ITCHING AROUND SCALP Uncoded Allergies "CYCLINES" ( Allergy, Unknown, 10/02/14) Past Nwitvsq-Czqmps-Uicmlo Hx Past Med/Social Hx: Reviewed Nursing Past Med/Soc Hx Patient Social History Alcohol Use: Denies Use Recreational Drug Use: No Smoking Status: Never a Smoker 2nd Hand Smoke Exposure: No Recent Foreign Travel: No Contact w/other who traveled: No Recent Hopitalizations: No (SKULL FX.) Recent Infectious Disease Expo: No Immunizations Up To Date Tetanus Booster (TDap): Less than 5yrs Date of Pneumonia Vaccine: May 18, 2019 Date of Influenza Vaccine: May 31, 2016 Seasonal Allergies Seasonal Allergies: No Past Medical History Surgeries: Adenoidectomy, Appendectomy, Gallbladder, Hysterectomy, Lumpectomy, Tonsillectomy Respiratory: COPD Neurological: Multiple Sclerosis Reproductive: No Sexually Transmitted Disease: No HIV/AIDS: No Hysterectomy Musculoskeletal: Fractures HEENT: Cataract, Glaucoma Loss of Vision: Denies Hearing Impairment: Denies History of Blood Disorders: No Adverse Reaction to Blood Zuniga: No (N/A) Family History Reviewed Nursing Family Hx Cancer, Hypertension Review of Systems Constitutional: fever, weakness EENTM: no symptoms reported Respiratory: short of breath Cardiovascular: no symptoms reported Gastrointestinal: diarrhea, nausea, vomiting Genitourinary: see HPI Musculoskeletal: no symptoms reported Skin: no symptoms reported Psychiatric/Neurological: No Symptoms Reported Physical Exam Physical Exam Vital Signs Vital Signs - First Documented Capillary Refill : Less Than 3 SecondsLess Than 3 Seconds Height, Weight, BMI Height: 5'3.00" Weight: 142lbs. 0oz. 64.288464cf; 27.45 BMI Method:Stated General Appearance: Chronically ill, Other (ill appearing but resting comfortably) HEENT: No Scleral Icterus (L), No Scleral Icterus (R) Neck: Normal Inspection, Supple Respiratory: Lungs Clear, No Accessory Muscle Use, Other (on 1.5lpm NC) Cardiovascular: Regular Rate, Rhythm, No JVD, No Murmur Gastrointestinal: Normal Bowel Sounds, Non Tender, Soft Extremity: Normal Capillary Refill, No Calf Tenderness, No Pedal Edema Neurologic/Psychiatric: Alert, Oriented x3 Skin: Warm/Dry, Ecchymosis (diffuse, over both arms) Results Results/Procedures Labs Laboratory Tests 02/26/20 16:30 02/27/20 04:40 Patient resulted labs reviewed. Imaging: Reviewed Imaging Report Imaging [facility]. [place], [place] NAME: MILI WILKES [facility] REC#: [id number] PT STATUS: REG ER : 1935 PHYSICIAN: HÉCTOR JARRETT ADMIT DATE: 02/26/20/ER Signed Date of Exam:02/26/20 CHEST 1 VIEW, AP/PA ONLY INDICATION: Weakness and fever. TIME OF EXAM: 05:21 p.m. COMPARISON: Correlation is made with prior chest from 08/13/2019. FINDINGS: The heart size is stable. Right hemidiaphragm is chronically elevated. No infiltrates are detected. No significant effusion or pneumothorax is seen. IMPRESSION: Stable chest. No acute feature is identified. Dictated by: Dictated on workstation # [id number] Dict: 02/26/201730 Trans: 02/26/201756 [facility] [id number] Interpreted by: RADHIKA GIPSON MD Electronically signed by: RADHIKA GIPSON MD 02/26/201756 Assessment/Plan Admission Diagnosis Septic Shock Admission Status: Inpatient Order (span 2 midnights) Reason for Inpatient Admission: see below Assessment and Plan Septic Shock GNR Bacteremia UTI Continue IV Merrem as she failed Rocephin as an outpatient Await sensitivities Palliative Care Consulted Discussed with patient and she agreeable with BP checks and new IV but otherwise wants to be kept comfortable I attempted to call sister to update her with no answer Overall poor prognosis and patient is declining certain measures of care SHAWNA Likely due to sepsis and hypotension Continue IVF Monitor UOP Soft Tissue Disease Develops skin tears and hematomas with minimal pressure Has large bruises on arms Diagnosis/Problems Diagnosis/Problems (1) Sepsis Status: Acute Qualifiers: Sepsis type: Pseudomonas Sepsis acute organ dysfunction status: with acute organ dysfunction Severe sepsis acute organ dysfunction type: acute renal failure Acute renal failure type: unspecified Severe sepsis shock status: with septic shock Qualified Codes: A41.52 - Sepsis due to Pseudomonas; R65.21 - Severe sepsis with septic shock; N17.9 - Acute kidney failure, unspecified (2) Poor prognosis Status: Acute (3) UTI (urinary tract infection) Status: Acute Qualifiers: Urinary tract infection type: acute cystitis Hematuria presence: with hematuria Qualified Codes: N30.01 - Acute cystitis with hematuria (4) Nausea & vomiting Status: Acute Qualifiers: Vomiting type: unspecified Vomiting Intractability: unspecified Qualified Codes: R11.2 - Nausea with vomiting, unspecified (5) Diarrhea Status: Acute Qualifiers: Diarrhea type: unspecified type Qualified Codes: R19.7 - Diarrhea, unspecified (6) Fever Status: Acute Qualifiers: Fever type: unspecified Qualified Codes: R50.9 - Fever, unspecified (7) Soft tissue disorder Status: Chronic (8) Allergy to multiple antibiotics Status: Chronic Clinical Quality Measures DVT/VTE Risk/Contraindication: Risk Factor Score Per Nursin RFS Level Per Nursing on Admit: 4+=Very High HAMIDA MASON MD Feb 27, 2020 12:00
[2020-02-27] MEDS ORDERED: ACET-2267 PO (13:13)
--- NOTE | 2020-02-27 13:13 | NUR ---
TRIED TO CALL THE PATIENTS ROOM PHONE MULTIPLE TIMES WITH NO ANSWER- MACK SUGGESTED I CALL THE PATIENTS SISTER EDITH SINCE THEY LIVE TOGETHER, I CALLED EDITH AND SHE WAS ABLE TO TELL ME THAT THE PT DOESNT TAKE ANY PRESCRIPTION MEDICATIONS AND THE ONLY THING SHE TAKES IS 1 TYLENOL 500MG BEFORE BED. I UPDATED THE MED REC USING THAT INFORMATION
--- NOTE | 2020-02-27 14:30 | NUR ---
PT HAD URINE OUTPUT OF [address] TURNER NOTIFIED AND GAVE ORDERS TO CONTINUE TO MONITOR HER OUTPUT. PT DRINKING CLEAR LIQUID TRAY BETTER THIS AFTERNOON, ATE ALL OF THE JELLO, A JUICE CUP AND SOME OF HER TEA. PT RESTING WITH NO COMPLAINTS AT THIS TIME.
[2020-02-28] VITALS: BP 122/78
[2020-02-28] MEDS: NS IV 1000 ML 1,000 ML IV SCH ×4 (00:40→17:30)
[2020-02-28 05:12] LABS: HEMOGLOBIN 8.5 G/DL (11.5-16.0); MEAN PLATELET VOLUME 10.1 FL (7.4-10.4); RED CELL DISTRIBUTION WIDTH 14.9 % (10.0-14.5); WHITE BLOOD COUNT 22.9 10^3/uL (4.3-11.0)
[2020-02-28 05:20] LABS: POTASSIUM 3.4 MMOL/L (3.6-5.0)
[2020-02-28 05:21] LABS: CALCIUM 6.8 MG/DL (8.5-10.1)
[2020-02-28 05:25] LABS: CREATININE SERUM 1.5 MG/DL (0.60-1.30)
--- NOTE | 2020-02-28 08:00 | NUR ---
PT REFUSING BP TO BE TAKEN AND SCALES BOOTS FOR HEEL PROTECTION.
[2020-02-28] MEDS: MEROPENEM 500 MG/SWFI 10 ML IV PUSH IV SCH ×4 (08:07→19:51)
[2020-02-28] MEDS: ACETAMINOPHEN 325 MG TABLET PO PRN (12:00)
--- NOTE | 2020-02-28 12:36 | NUR ---
PALLIATIVE CARE RN spoke to Dr. Mason and got updated on some difficulties with patients care. The COVID 19 swab results are still pending due to the reagent being backordered. Patients UA bug need IV Antibiotics and so patient will need HHC at discharge for this need. She is insistent on going home but is willing to stay until tomorrow with hopeful results are known. She has agreed to be re-swab for COVID-19. Patient reports that her sister transports her and that the neighbor helps get her in and out of the car. She understands the risk to both should she be positive for COVID-19. Anticipate discharge for tomorrow with HHC to administer IV Abx.
--- NOTE | 2020-02-28 12:46 | Progress Note - Hospitalist ---
Subjective HPI/CC On Admission Date Seen by Provider: Feb 28, 2020 Time Seen by Provider: 12:39 Pt is an 84yo CF who presented to the ER due to abdominal pain, fever, and SOB. She reportedly we feeling well yesterday and went to the mall to get her hair and nails done and then ate lunch. Shortly after lunch she developed nausea and vomiting. She then developed profuse diarrhea in the ER. She was diagnosed with a UTI 2 weeks ago and was treated with Rocephin x5 days as an outpatient. It appears this is her third round of Rocephin this year for UTI. Apparently in the ER she refused BP checks and wanted to just be kept comfortable. She did agree to antibiotics though. This morning she allowed one blood pressure check which was 85/43. She refused further checks from the nurse. She and I discussed the importance of checking BP to help her and if we were unable to monitor her BP we could not provide her the best care to cure her. She did agree to BP checks but states otherwise she only wants to be kept comfortable and states "I may . Subjective/Events-last exam Pt doing better today. More alert. Actually asking to go home. Discussed that not all labs are back and it would be safer for her to stay until tomorrow so that she can be discharge safely. She again states that she would like to go home but agrees to stay until tomorrow if needed. I called and spoke with her daughter regarding this who was in agreement with plan. Focused Exam Lactate Level 02/26/20 16:30: Lactic Acid Level 5.77*H 02/27/20 04:40: Lactic Acid Level 1.86 Time of Focused Exam: 18:15 Objective Exam Vital Signs Vital Signs Date Time Temp Pulse Resp B/P (MAP) Pulse Ox O2 Delivery O2 Flow Rate FiO2 02/28/20 11:44 37.6 92 22 97 Room Air 02/28/20 08:10 1.50 02/28/20 04:30 Capillary Refill : Less Than 3 SecondsLess Than 3 Seconds General Appearance: No Apparent Distress, WD/WN Respiratory: Lungs Clear, No Respiratory Distress Cardiovascular: Regular Rate, Rhythm, No Murmur Neurologic/Psychiatric: Alert, Oriented x3 Results/Procedures Lab Laboratory Tests 02/28/20 05:04 Patient resulted labs reviewed. Imaging: Reviewed Imaging Report Assessment/Plan Assessment and Plan Assess & Plan/Chief Complaint Septic Shock GNR Bacteremia UTI COVID PUI Continue IV Merrem as she failed Rocephin as an outpatient Await sensitivities Palliative Care Consulted Spoke with daughter as above about plan COVID pending, apparently lab ran out of reagent for her swab, will send another swab and I confirmed with lab that she should still be a priority 1 test as we have been waiting in the hospital for results for 2 days SHAWNA Creatinine stable UOP improved Soft Tissue Disease Develops skin tears and hematomas with minimal pressure Has large bruises on arms Diagnosis/Problems Diagnosis/Problems (1) Sepsis Status: Acute Qualifiers: Sepsis type: Pseudomonas Sepsis acute organ dysfunction status: with acute organ dysfunction Severe sepsis acute organ dysfunction type: acute renal failure Acute renal failure type: unspecified Severe sepsis shock status: with septic shock Qualified Codes: A41.52 - Sepsis due to Pseudomonas; R65.21 - Severe sepsis with septic shock; N17.9 - Acute kidney failure, unspecified (2) Poor prognosis Status: Acute (3) UTI (urinary tract infection) Status: Acute Qualifiers: Urinary tract infection type: acute cystitis Hematuria presence: with hematuria Qualified Codes: N30.01 - Acute cystitis with hematuria (4) Nausea & vomiting Status: Acute Qualifiers: Vomiting type: unspecified Vomiting Intractability: unspecified Qualified Codes: R11.2 - Nausea with vomiting, unspecified (5) Diarrhea Status: Acute Qualifiers: Diarrhea type: unspecified type Qualified Codes: R19.7 - Diarrhea, unspecified (6) Fever Status: Acute Qualifiers: Fever type: unspecified Qualified Codes: R50.9 - Fever, unspecified (7) Soft tissue disorder Status: Chronic (8) Allergy to multiple antibiotics Status: Chronic Clinical Quality Measures DVT/VTE Risk/Contraindication: Risk Factor Score Per Nursin RFS Level Per Nursing on Admit: 4+=Very High HAMIDA TURNER MD Feb 28, 2020 12:46
--- NOTE | 2020-02-28 13:42 | NUR ---
"RD ASSESSMENT PMHx: COPD; MS PT INTERACTION: Note pt is current PUI for COVID-19. Note all diet information is per chart review. Note avg PO intake <25% x1d. Note last BM was 02/26, and pt not currently on bowel regimen. Note recent 30# wt gain x4mon. Note pt stated episodes of emesis, per H&P. ABNORMAL NUTRITION-RELATED LAB VALUES LOW: K 3.4; Ca 6.8 HIGH: Cl 113; BUN 32; cr 1.50 Est. kcal needs: 1700 kcal | 25 kcal/kg Est. Pro needs: 55 g Pro | 0.8 g Pro/kg PES STATEMENT: Inadequate oral intake (NI-2.1) related to loss of appetite | nausea | vomiting as evidenced by chart review | avg PO intake <25% x1d INTERVENTION: Continue with current diet order of DYS3 Advanced/Ground Meat diet. Add Ensure Enlive (vary) to meals TID, for increased kcal intake. Provides 350 kcal and 13 g Pro per serving. Will continue to follow and reassess as pt needs, intake, and status change. MONITOR/EVALUATE: PO Intake; Plan of Care; Hydration Status; Weight Status; Lab Values Norma Samayoa, MS, RD, LD"
--- NOTE | 2020-02-28 14:52 | Physical Therapy Evaluation ---
PT Evaluation-General Medical Diagnosis Admission Date Feb 27, 2020 at 12:00 Medical Diagnosis: vomiting/diarrhea/UTI Onset Date: Feb 27, 2020 Therapy Diagnosis Therapy Diagnosis: debility/weakness Height/Weight Height (Feet): 5 Height (Inches): 3.00 Weight (Pounds): 142 Weight (Ounces): 0 Precautions Precautions/Isolations: Contact Isolation, Droplet Isolation, Fall Prevention, Pressure Ulcer Weight Bear Status Right Lower Extremity: Right Weight Bearing/Tolerated Left Lower Extremity: Left Weight Bearing/Tolerated Referral Physician: Marlon Reason for Referral: Evaluation/Treatment Medical History Pertinent Medical History: COPD Current History EMS secondary to N/V, fever and SOA Reviewed History: Yes Social History Home: Apartment Current Living Status: caregivers Entry Into Home: Level Entry Prior Prior Level of Function SCALE: Activities may be completed with or without assistive devices. 6-Gdlwabpwgt-vcyqmqi completes the activity by him/herself with no assistance from a helper. 5-Set-up or Clean-up Assistance-helper sets up or cleans up; patient completes activity. [place] assists only prior to or following the activity. 4-Supervision or Touching Assistance-helper provides verbal cues and/or to uching/steadying and/or contact guard assistance as patient completes activity. Assistance may be provided throughout the activity or intermittently. 3-Partial/Moderate Assistance-helper does LESS THAN HALF the effort. [place] lifts, holds or supports trunk or limbs, but provides less than half the effort. 2-Substantial/Maximal Assistance-helper does MORE THAN HALF the effort. [place] lifts or holds trunk or limbs and provides more than half the effort. 0-Gqujoiotc-glzisp does ALL the effort. Patient does none of the effort to complete the activity. Or, the assistance of 2 or more helpers is required for the patient to complete the activity. If activity was not attempted, code reason: 7-Patient Refused. 9-Not Applicable-not attempted and the patient did not perform the activity before the current illness, exacerbation or injury. 10-Not Attempted due to Environmental Limitations-(lack of equipment, weather restraints, etc.). 88-Not Attempted due to Medical Conditions or Safety Concerns. Bed Mobility: 4 Transfers (B,C,W/C): 4 Gait: 9 Stairs: 9 Prior Devices Use: Motorized scooter non ambulatory PLOF PT Evaluation-Current Subjective Patient very vocal and agitated about participating with PT. Patient did agree. Pain Numeric Pain Scale: 0-No Pain Location: No Pain Reported Objective Patient Orientation: Normal For Age Attachments: Spaulding Catheter, IV ROM/Strength ROM Lower Extremities bilateral LE WFL Strength Lower Extremities 3-/5 grossly bilaterally with no formal testing due to patient refusal Integumentary/Posture Integumentary refer to nursing notes Bladder Incontinence: Spaulding Cath Posture WFL Neuromuscular (Tone, Coordination, Reflexes) diminished coordination due to inactivity PLOF Sensory Vision: Functional Hearing: Functional Sensation Right Lower Extremit: Impaired Sensation Left Lower Extremity: Impaired Transfers patient would only perform moving bilateral LE to EOB, however, adamantly declined to continue with therapy and independent returned her LE's back to bed Gait Does the Patient Walk?: No and Walking Goal NOT indicated Assessment/Needs 84 y.o. female, ceased therapy session and refused to continue to demonstrate LOF. Patient became highly agitated and states she can do things she just wants to go home and to have us leave her alone. Physician notified of patient noncompliance and willingness to participate with therapy. PT to dismiss patient at this time. Rehab Potential: Poor PT Plan Problem List Problem List: Activity Tolerance, Functional Strength, Safety, Transfer, Bed Mobility Treatment/Plan Treatment Plan: Discontinue PT Treatment Duration: Feb 28, 2020 Frequency: 1 time per week Estimated Hrs Per Day: .5 hour per day Patient and/or Family Agrees t: Yes Time/GCodes Time In: 1410 Time Out: 1426 Total Billed Treatment Time: 16 Total Billed Treatment 1 visit EVLow 16 min CHA UP PT Feb 28, 2020 14:51
--- NOTE | 2020-02-28 15:45 | NUR ---
PT WAS RE-SWABBED FOR COVID PER DR TURNER ORDERS. PT TOLERATED WELL.
--- NOTE | 2020-02-28 16:12 | NUR ---
PT HAS REFUSED ALL BLOOD PRESSURES TO BE TAKEN TODAY.
[2020-02-28] MEDS ORDERED: ENOXAPARIN 40 MG/0.4 ML (LOVENOX) SYR SC SCH (21:00)
[2020-02-28] MEDS ORDERED: ENOXAPARIN 30 MG/0.3 ML (LOVENOX) SYR SC SCH (21:00)
[2020-02-29] MEDS: MEROPENEM 500 MG/SWFI 10 ML IV PUSH IV SCH ×2 (08:26)
--- NOTE | 2020-02-29 09:08 | NUR ---
PT NOTIFIED BY THIS RN THAT HER COVID LAB CAME BACK NEGATIVE THIS MORNING. PT REPORTS TO RN THAT SHE IS READY TO GO HOME. BUILDER'S LABOURER RN, GILBERTO MARSHALL, NOTIFIED DR TURNER OF RESULT AND SAID THAT PT WILL DISCHARGE TODAY.
[2020-02-29] MEDS ORDERED: CEFE2FRO IV (09:20)
--- NOTE | 2020-02-29 09:22 | NUR ---
DISCHARGE PLANNING: Patient is hopeful to discharge today to home where she lives with her sister who is her caregiver. I have spoken to Oksana, sister, who has reported that she had [facility] and she would like her again. I will send referral to [facility] at home for their assistance in post hospital care. Patient will need 7 days worth of IV Abx daily. Sister is not excited about needing to administer the Abx but will if she has too.
--- NOTE | 2020-02-29 09:25 | D/C HH Face to Face Order ---
D/C Face to Face Orders Instructions for Patient Via [facility], Patient Instructions/FollowUp: Please continue to take your medications as written. Please follow up with your primary care doctor to follow up this hospital stay. Physician to follow Patient: Dr Serrato Discharge Diet for Home: No Restrictions Patient Data-Allergies,Ht & Wt Patient Allergies: Coded Allergies: arformoterol (Verified Allergy, Intermediate, TREMORS, 12/16/18) azithromycin (Verified Allergy, Intermediate, RASH, 12/16/18) cefadroxil (Verified Allergy, Intermediate, RASH, 02/29/20) tolerates Rocephin cephalexin (Verified Allergy, Intermediate, JAW PAIN, 02/29/20) tolerates Rocephin levofloxacin (Verified Allergy, Intermediate, JOINT PAIN, 12/16/18) Penicillins (Verified Allergy, Unknown, 12/16/18) Sulfa (Sulfonamide Antibiotics) (Verified Allergy, Unknown, 12/16/18) albuterol (Verified Allergy, Unknown, 12/16/18) ciprofloxacin (Verified Allergy, Unknown, 12/16/18) erythromycin base (Verified Allergy, Unknown, 12/16/18) vancomycin (Verified Adverse Reaction, Unknown, HIVES, 12/16/18) HAD ITCHING AROUND SCALP Uncoded Allergies: "CYCLINES" (Allergy, Unknown, 10/02/14) Height (Feet): 5 Height (Inches): 3.00 Weight (Pounds): 142 Weight (Ounces): 0 Home Health Need/Face to Face Date of Face to Face: Feb 29, 2020 Clinical Findings: Generalized weakness and fatigue I have seen Pt [id number]: Yes Discharged To: Home Diagnosis/Conditions: UTi, bacteremia Patient is Homebound due to: Jyoti fall risk due to instabilty, Muscle weakness Homebound Status Due to the above stated illness, injury or surgical procedure (medical condition or diagnosis) and associated clinical findings, the patient is homebound because of his/her inability to leave home except with aid of a supportive device and/or person AND leaving the home requires a considerable and taxing effort or is medically contraindicated. Pt req the following assistanc: Aid of another person, Wheelchair Home Health Nursing Orders Home Health Services Order: Nursing Services, System Sales Consultant-Evaluate & Treat, Physical Therapy-Evaluate & Treat Daily IV antibiotics as prescribed Home Health Infusion Therapy Line Start Date: Feb 26, 2020 Therapy Orders Therapy Orders: OT (must have SN or PT order), Physical Therapy Therapy Specific Orders: Eval assistive deivces, Teach enviro modifications/safety, Gait training, Increase strength/endurance Certify Stmt I certify that this patient is under my care and that I, a nurse practitioner or a physician; a assistant professor of business working with me, had a face to face encounter that - meets the physician face to face encounter requirements with this patient as dated. HAMIDA TURNER MD Feb 29, 2020 09:25
--- NOTE | 2020-02-29 10:37 | NUR ---
FINAL DISCHARGE PLAN: Patient will discharge today to home with Home Health Care delivered by [facility]. [facility] to deliver IV Abx for 7 days of continued IV Abx awaiting their confirmation.
[2020-02-29] MEDS ORDERED: CHLORASEPTIC LOZENGE MM PRN (10:45)
[2020-02-29] MEDS ORDERED: CEFEPIME INJECTION 2,000 MG in WATER (STERILE) FOR INJECTION 20 ML IV NR (11:00)
--- NOTE | 2020-02-29 11:51 | Discharge Summary ---
Diagnosis/Chief Complaint Date of Admission Feb 27, 2020 at 12:00 Date of Discharge Discharge Date: Feb 29, 2020 Admission Diagnosis Septic Shock Primary Care Heron Serrato MD Discharge Diagnosis (1) Sepsis Status: Acute (2) Poor prognosis Status: Acute (3) UTI (urinary tract infection) Status: Acute (4) Nausea & vomiting Status: Acute (5) Diarrhea Status: Acute (6) Fever Status: Acute (7) Soft tissue disorder Status: Chronic (8) Allergy to multiple antibiotics Status: Chronic Discharge Summary Discharge Physical Exam Allergies: Coded Allergies: arformoterol (Verified Allergy, Intermediate, TREMORS, 12/16/18) azithromycin (Verified Allergy, Intermediate, RASH, 12/16/18) cefadroxil (Verified Allergy, Intermediate, RASH, 02/29/20) tolerates Rocephin cephalexin (Verified Allergy, Intermediate, JAW PAIN, 02/29/20) tolerates Rocephin levofloxacin (Verified Allergy, Intermediate, JOINT PAIN, 12/16/18) Penicillins (Verified Allergy, Unknown, 12/16/18) Sulfa (Sulfonamide Antibiotics) (Verified Allergy, Unknown, 12/16/18) albuterol (Verified Allergy, Unknown, 12/16/18) ciprofloxacin (Verified Allergy, Unknown, 12/16/18) erythromycin base (Verified Allergy, Unknown, 12/16/18) vancomycin (Verified Adverse Reaction, Unknown, HIVES, 12/16/18) HAD ITCHING AROUND SCALP Uncoded Allergies: "CYCLINES" (Allergy, Unknown, 10/02/14) Vitals & I&Os Vital Signs Date Time Temp Pulse Resp B/P (MAP) Pulse Ox O2 Delivery O2 Flow Rate FiO2 02/29/20 08:02 37.0 85 19 98 Room Air 02/28/20 08:10 1.50 02/28/20 04:30 General Appearance: No Apparent Distress, WD/WN Neurologic/Psychiatric: Alert, Oriented x3 Hospital Course Pt is an 84yoCF who was admitted due to septic shock from bacteremic with pseudomonas from a urinary tract infection. She was treated with high volume fluid resuscitation and declined BP checks, central line, or ICU level of care. She did improve with IV antibiotics and sensitivities revealed Cefepime was an appropriate antibiotic. She was discharged with home health for continued therapy and daily IV antibiotics. Labs (last 24 hrs) Laboratory Tests 02/28/20 15:45: Coronavirus (COVID-19)(PCR) Negative Microbiology 02/28/20 C. difficile [facility]DH Antigen & Toxins - Final, Resulted 02/28/20 Stool Culture, Resulted Pending 02/26/20 Urine Culture - Final, Complete Pseudomonas aeruginosa 02/26/20 Blood Culture - Final, Complete Pseudomonas aeruginosa See Comments Patient resulted labs reviewed. Imaging: Reviewed Imaging Report Discussion & Recommendations Discharge Planning: >30 minutes discharge planning Discharge Home Medications: Active Scripts Active Cefepime 2 gm Injection (Cefepime HCl/Dextrose, Iso-Osm) 2 Gm/100 Ml Froz.piggy 2 Gm IV DAILY 7 Days Reported Tylenol Extra Strength (Acetaminophen) 500 Mg Tablet 500 Mg PO HS Instructions to patient/family Please see electronic discharge instructions given to patient. Clinical Quality Measures DVT/VTE Risk/Contraindication: Risk Factor Score Per Nursin RFS Level Per Nursing on Admit: 4+=Very High Problem Qualifiers (1) Sepsis: Sepsis type: Pseudomonas Sepsis acute organ dysfunction status: with acute organ dysfunction Severe sepsis acute organ dysfunction type: acute renal failure Acute renal failure type: unspecified Severe sepsis shock status: with septic shock Qualified Codes: A41.52 - Sepsis due to Pseudomonas; R65.21 - Severe sepsis with septic shock; N17.9 - Acute kidney failure, unspecified (2) UTI (urinary tract infection): Urinary tract infection type: acute cystitis Hematuria presence: with hematuria Qualified Codes: N30.01 - Acute cystitis with hematuria (3) Nausea & vomiting: Vomiting type: unspecified Vomiting Intractability: unspecified Qualified Codes: R11.2 - Nausea with vomiting, unspecified (4) Diarrhea: Diarrhea type: unspecified type Qualified Codes: R19.7 - Diarrhea, unspecified (5) Fever: Fever type: unspecified Qualified Codes: R50.9 - Fever, unspecified HAMIDA TURNER MD Feb 29, 2020 11:51
--- NOTE | 2020-02-29 11:57 | NUR ---
FINAL FINAL DISCHARGE NOTE: [facility] to deliver IV Abx tomorrow via [employer] around 1:30 p.m. tomorrow (address confirmed). [facility] to call sister Oksana today to coordinate care. Oksana will need to let [facility] know when the medications have been delivered to the home. Oksana is on her way to the hospital with clothes. RN aware.
== END 2020-02-29 12:30 | disposition home health service (06) | DRG 871 ==
LOC: EDUNIT# 16:20 → ER 16:22 → 4TH 17:15 → OBSVTOIN 02-27 12:00
PROVIDERS: ADMIT Family Medicine; ATTEND Family Medicine
DX: A41.9 Sepsis, unspecified organism (principal); R65.21 Severe sepsis with septic shock; N39.0 Urinary tract infection, site not specified; N17.9 Acute kidney failure, unspecified; Z20.828 Contact with and (suspected) exposure to other viral communicable diseases; M79.9 Soft tissue disorder, unspecified; Z88.2 Allergy status to sulfonamides; Z88.1 Allergy status to other antibiotic agents; Z88.0 Allergy status to penicillin
CPT/HCPCS: 36415; 51702; 71045; 76937; 80048; 80053; 81000; 83605; 84484; 85007; 85025; 85027; 85610; 85730; 87015; 87040; 87045; 87046; 87077; 87088; 87186; 87324; 87449; 87635; 87899; 93005; G0378

== ENCOUNTER → 2023-02-07 | Outpatient (CLI) | payer MEDICARE, OTHER ==
[~2023-02-07] MED LIST changes: +ACET-2267 PO; +CEFE2FRO IV
== END ==
LOC: WOUNDCARE 12:29
PROVIDERS: ATTEND Family Medicine
DX: L98.492 Non-pressure chronic ulcer of skin of other sites with fat layer exposed (principal); L92.9 Granulomatous disorder of the skin and subcutaneous tissue, unspecified; W54.0XXA Bitten by dog, initial encounter
CPT/HCPCS: 11042; A6197; G0463

== ENCOUNTER → 2023-02-14 | Outpatient (CLI) | payer MEDICARE, OTHER | LOC: WOUNDCARE 14:20 | PROVIDERS: ATTEND Family Medicine | DX: I96 Gangrene, not elsewhere classified (principal); L98.492 Non-pressure chronic ulcer of skin of other sites with fat layer exposed; W54.0XXA Bitten by dog, initial encounter | CPT/HCPCS: 99213 ==

== ENCOUNTER 2023-03-14 11:21 | Emergency (ER) | payer MEDICARE, OTHER ==
[~2023-03-14] VITALS: Ht 157.4 cm; Wt 47.6 kg
--- NOTE | 2023-03-14 11:42 | ED Upper Extremity ---
General Chief Complaint: Bite-Animal/Human/Insect Stated Complaint: INSECT BITE|LT INDEX FINGER|INFECTION Source: patient Exam Limitations: no limitations (FRANCHESKA SMALL) History of Present Illness Date Seen by Provider: Mar 14, 2023 Time Seen by Provider: 11:38 Initial Comments Patient is a 87-year-old female who presents ED for redness and swelling to her left index finger. She noted 3 weeks ago a small "bump" this has increased in size redness. States on March 07 was placed on antibiotic that she cannot recall. She has noted increased redness and swelling. Last night the area popped with purulent fluid drainage. Patient Was seen at [facility] [place] urgent care and was recommended come to ED for further evaluation. She reports pain with movement. Denies history of diabetes. Denies any specific trauma. She denies fever, chills, nausea vomiting, diarrhea. (FRANCHESKA SMALL) Allergies and Home Medications Allergies Coded Allergies: arformoterol (Verified Allergy, Intermediate, TREMORS, 12/16/18) azithromycin (Verified Allergy, Intermediate, RASH, 12/16/18) cefadroxil (Verified Allergy, Intermediate, RASH, 02/29/20) tolerates Rocephin cephalexin (Verified Allergy, Intermediate, JAW PAIN, 02/29/20) tolerates Rocephin levofloxacin (Verified Allergy, Intermediate, JOINT PAIN, 12/16/18) Penicillins (Verified Allergy, Unknown, 12/16/18) Sulfa (Sulfonamide Antibiotics) (Verified Allergy, Unknown, 12/16/18) albuterol (Verified Allergy, Unknown, 12/16/18) ciprofloxacin (Verified Allergy, Unknown, 12/16/18) erythromycin base (Verified Allergy, Unknown, 12/16/18) vancomycin (Verified Adverse Reaction, Unknown, HIVES, 12/16/18) HAD ITCHING AROUND SCALP Uncoded Allergies: "CYCLINES" (Allergy, Unknown, 10/02/14) Patient Home Medication List Home Medication List Reviewed: Yes (FRANCHESKA SMALL) Acetaminophen (Tylenol Extra Strength) 500 Mg Tablet, 500 MG PO HS, (Reported) Entered as Reported by: SHENG KIDD on 02/27/20 1313 Cefepime HCl/Dextrose, Iso-Osm (Cefepime 2 gm Injection) 2 Gm/100 Ml Froz.piggy, 2 GM IV DAILY Prescribed by: HAMIDA TURNER on 02/29/20 0920 Review of Systems Constitutional: No chills, No diaphoresis, No fever, No malaise, No weakness EENTM: No blurred vision, No double vision Respiratory: No cough, No dyspnea on exertion Cardiovascular: No chest pain Gastrointestinal: No abdominal pain, No diarrhea, No nausea, No vomiting Genitourinary: No decreased output, No discharge Musculoskeletal: joint pain, joint swelling Skin: change in color (FRANCHESKA SMALL) All Other Systems Reviewed Negative Unless Noted: Yes (FRANCHESKA SMALL) Past Khcmoua-Ghktwm-Dbheuc Hx Patient Social History Tobacco Use?: No Substance use?: No Alcohol Use?: No (FRANCHESKA SMALL) Immunizations Up To Date Tetanus Booster (TDap): Less than 5yrs (FRANCHESKA SMALL) Seasonal Allergies Seasonal Allergies: No (FRANCHESKA SMALL) Past Medical History Surgeries: Yes (LEFT WRIST FX-PLATE AND SCREWS) Adenoidectomy, Appendectomy, Gallbladder, Hysterectomy, Lumpectomy, Tonsillectomy Respiratory: Yes Pneumonia, COPD Cardiac: No Neurological: Yes (Stated history of Multiple Sclerosis- diagnosed in 1980.) Multiple Sclerosis Reproductive Disorders: No 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 Sexually Transmitted Disease: No HIV/AIDS: No Genitourinary: Yes (Interstitial cystitis) Gastrointestinal: No Musculoskeletal: Yes ([place]) Fractures Endocrine: No HEENT: Yes (Cataracts removed) Cataract, Glaucoma Loss of Vision: Denies Hearing Impairment: Denies Cancer: No Psychosocial: No Integumentary: Yes (Paper thin skin) Blood Disorders: No Adverse Reaction/Blood Tranf: No (N/A) (FRANCHESKA SMALL) Family Medical History Cancer, Hypertension (FRANCHESKA SMALL) Physical Exam Vital Signs Vital Signs - First Documented 03/14/23 11:25 Temp 36.8 Pulse 96 Pulse Ox 100 O2 Delivery Room Air (JOSUÉ OTERO MD) Vital Signs Capillary Refill : (FRANCHESKA SMALL) Height, Weight, BMI Height: 5'3.00" Weight: 142lbs. 0oz. [id number]; 27.45 BMI Method:Stated General Appearance: WD/WN, no apparent distress HEENT: PERRL/EOMI, normal ENT inspection, TMs normal, pharynx normal Neck: non-tender, full range of motion, supple Cardiovascular: regular rate, rhythm, no edema, no gallop, no JVD Respiratory: chest non-tender, lungs clear, normal breath sounds, no respiratory distress, no accessory muscle use Gastrointestinal: normal bowel sounds, non tender, soft Back: normal inspection, no CVA tenderness, no vertebral tenderness Elbow/Forearm: Left, soft tissue tenderness, swelling (Swelling and mild erythema noted to left index finger. Prominent area of drainage swelling to the left dorsum index finger. 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 More prominent swelling noted to the dorsum side of the left index finger. Mild fluid drainage.) (FRANCHESKA SMALL) Procedures/Interventions Suture Size: 5-0 (FRANCHESKA SMALL) Progress/Results/Core Measures Results/Orders Lab Results Laboratory Tests Test 03/14/23 11:40 03/14/23 13:50 Range/Units White Blood Count 13.8 H 4.3-11.0 10^3/uL Red Blood Count 4.06 3.80-5.11 10^6/uL Hemoglobin 12.5 11.5-16.0 g/dL Hematocrit 40 35-52 % Mean Corpuscular Volume 98 80-99 fL Mean Corpuscular Hemoglobin 31 25-34 pg Mean Corpuscular Hemoglobin Concent 32 32-36 g/dL Red Cell Distribution Width 13.9 10.0-14.5 % Platelet Count 372 130-400 10^3/uL Mean Platelet Volume 9.1 9.0-12.2 fL Immature Granulocyte % (Auto) 0 % Neutrophils (%) (Auto) 72 42-75 % Lymphocytes (%) (Auto) 18 12-44 % Monocytes (%) (Auto) 8 0-12 % Eosinophils (%) (Auto) 0 0-10 % Basophils (%) (Auto) 1 0-10 % Neutrophils # (Auto) 10.0 H 1.8-7.8 10^3/uL Lymphocytes # (Auto) 2.5 1.0-4.0 10^3/uL Monocytes # (Auto) 1.1 H 0.0-1.0 10^3/uL Eosinophils # (Auto) 0.1 0.0-0.3 10^3/uL Basophils # (Auto) 0.1 0.0-0.1 10^3/uL Immature Granulocyte # (Auto) 0.1 0.0-0.1 10^3/uL Sodium Level 136 135-145 MMOL/L Potassium Level 3.8 3.6-5.0 MMOL/L Chloride Level 105 98-107 MMOL/L Carbon Dioxide Level 19 L 21-32 MMOL/L Anion Gap 12 5-14 MMOL/L Blood Urea Nitrogen 23 H 7-18 MG/DL Creatinine 0.96 0.60-1.30 MG/DL Estimat Glomerular Filtration Rate 58 BUN/Creatinine Ratio 24 Glucose Level 131 H 70-105 MG/DL Lactic Acid Level 3.51 *H 1.09 0.50-2.00 MMOL/L Calcium Level 9.2 8.5-10.1 MG/DL Corrected Calcium 9.5 8.5-10.1 MG/DL Total Bilirubin 0.5 0.1-1.0 MG/DL Aspartate Amino Transf (AST/SGOT) 15 5-34 U/L Alanine Aminotransferase (ALT/SGPT) 9 0-55 U/L Alkaline Phosphatase 117 40-136 U/L C-Reactive Protein High Sensitivity 2.81 H 0.00-0.50 MG/DL Total Protein 7.5 6.4-8.2 GM/DL Albumin 3.6 3.2-4.5 GM/DL (JOSUÉ OTERO MD) Micro Results Microbiology 03/14/23 Blood Culture - Preliminary, Resulted (JOSUÉ OTERO MD) Vital Signs/I&O 03/15/23 00:00 Intake Total 1100 ml Balance 1100 ml (JOSUÉ OTERO MD) Departure Communication (PCP) Patient presents ED with swelling redness and pain to her left index finger. Patient has seen wound care over the past few weeks. Currently on doxycycline. Was seen at [facility] [place] was sent to the ED for orthopedic evaluation. She does have some circumferential erythema with swelling noted on the dorsum side of the left index finger. Concern for developing abscess versus localized infection to the dorsum side of her left index finger. Mild purulent and clear drainage. Slight flex at the DIP. She denies diabetes. Patient refused blood pressure cuff. She states every time she gets a cuff place she has significant bruising. She has a soft tissue disorder according to patient. Not on blood thinners. She denies any fever, chills, body aches. Initially refused any lab work but did agree as I stated she could be septic and due to the failed outpatient therapy she will require IV antibiotics which she eventually agreed. CBC, CMP, lipase, blood cultures and lactic acid was CRP. CBC shows slight elevated white blood count at 13. CRP elevated 2. Lactic acid 3.51. She has multiple antibiotic allergies. Patient Was able to start meropenem. She did receive a liter of fluid. Still continue refusing blood pressure cuff. She remained afebrile. Due to not having any orthopedic on-call consulted with orthopedic at [facility]. Talked to Tani PIÑA for Dr. Whitfield. Suggest transfer to their facility they will consult patient may require OR for debridement and surgical intervention. Patient was discussed with the hospitalist Dr. Medina who agreed to accept the patient. Due to not having any EMS transport, family requesting by POV. Family at bedside. Patient is currently hemodynamically stable however not able to determine secondary to her blood pressure. She once again refused EMS Transport and suggested going by PO. [facility] was notified. Patient is recommended to drive directly to the hospital. N.p.o. (FRANCHESKA SMALL) Impression Primary Impression: Cellulitis Disposition: 02 XFER SHT-TRM HOSP Condition: Stable Transfer BH Medically Cleared for Xfer: Yes Transfer Reason: Exceeds level of care Time Spoke to Accepting Phy: 14:29 Transfer Progress Notes Accepted Dr. Medina Hospitalist Transfer Time: 14:29 Transfer Facility: [facility] Method of Transfer: Private Vehicle (FRANCHESKA SMALL) Departure-Patient Inst. Referrals: YUDI WYNNE MD (PCP/Family) Primary Care Physician ATTENDING PHYSICIAN NOTE: I was physically present as attending physician in the emergency department during the care of this patient, but I was not directly involved in the decision making or delivery of care for this patient. (JOSUÉ OTERO MD) FRANCHESKA SMALL Mar 14, 2023 11:41 JOSUÉ OTERO MD Mar 15, 2023 08:08
[2023-03-14 11:54] LABS: BASOPHILS # (AUTO) 0.1 10^3/uL (0.0-0.1); BASOPHILS % (AUTO) 1 % (0-10); EOSINOPHILS # (AUTO) 0.1 10^3/uL (0.0-0.3); EOSINOPHILS % (AUTO) 0 % (0-10); HEMATOCRIT 40 % (35-52); HEMOGLOBIN 12.5 g/dL (11.5-16.0); LYMPHOCYTES # (AUTO) 2.5 10^3/uL (1.0-4.0); LYMPHOCYTES % (AUTO) 18 % (12-44); MEAN CORPUSCULAR HEMOGLOBIN 31 pg (25-34); MEAN CORPUSCULAR HGB CONC 32 g/dL (32-36); MEAN CORPUSCULAR VOLUME 98 fL (80-99); MEAN PLATELET VOLUME 9.1 fL (9.0-12.2); MONOCYTES # (AUTO) 1.1 10^3/uL (0.0-1.0); MONOCYTES % (AUTO) 8 % (0-12); NEUTROPHILS % (AUTO) 72 % (42-75); PLATELET COUNT 372 10^3/uL (130-400); WHITE BLOOD COUNT 13.8 10^3/uL (4.3-11.0)
[2023-03-14 11:59] LABS: ALBUMIN 3.6 GM/DL (3.2-4.5)
[2023-03-14 12:00] LABS: POTASSIUM 3.8 MMOL/L (3.6-5.0)
[2023-03-14 12:01] LABS: CALCIUM 9.2 MG/DL (8.5-10.1)
[2023-03-14 12:02] LABS: TOTAL PROTEIN 7.5 GM/DL (6.4-8.2)
[2023-03-14 12:04] LABS: BILIRUBIN,TOTAL 0.5 MG/DL (0.1-1.0)
[2023-03-14 12:06] LABS: CREATININE SERUM 0.96 MG/DL (0.60-1.30)
[2023-03-14] MEDS ORDERED: NS IV 1000 ML 1,000 ML IV STA (12:08)
--- NOTE | 2023-03-14 12:11 | Diagnostic Imaging Report ---
INDICATION: Spider bite to the finger. Prior to that injury, there was severe limitations and range of motion with the majority of the fingers held in severe flexion at the PIPs. FINDINGS: There is underlying osteoporosis. There is severe soft tissue swelling over the index finger, most notably dorsal to the distal interphalangeal joint. No bony destruction or fracture, however. No retained opaque foreign body. The remaining hand structures are suboptimally visualized owing to the severe flexion deformities. There are arthritic changes throughout the hand and wrist. There is prior surgery with plating of the visible distal radius. IMPRESSION: Severe swelling at the index finger, most notably dorsally, but no constance bony destruction or opaque foreign body. Dictated by: Dictated on workstation # [id number]
[2023-03-14] MEDS ORDERED: MEROPENEM 500 MG in NS (IVPB) 100 ML 100 ML IV ONE (12:15)
== END 2023-03-14 18:09 | disposition short-term general hospital (02) ==
LOC: EDUNIT# 11:21 → ER 11:23
DX: L03.012 Cellulitis of left finger (principal); R79.82 Elevated C-reactive protein (CRP)
CPT/HCPCS: 36415; 73130; 80053; 83605; 85025; 86141; 87040

== ENCOUNTER 2023-04-07 17:37 | Emergency (ER) | payer MEDICARE, OTHER ==
[~2023-04-07] VITALS: Ht 160 cm; Wt 54.4 kg
--- NOTE | 2023-04-07 18:29 | ED GI ---
General Chief Complaint: Cough/Cold/Flu Symptoms Stated Complaint: VOMITING Nursing Triage Note: PT TO [facility] BY [facility] WITH C/O VOMITTING SINCE THIS MORNING AND COUGH. PT REFUSING BLOOD PRESSURE AND REFUSED WITH EMS Source of Information: Patient Exam Limitations: No Limitations History of Present Illness Date Seen by Provider: Apr 07, 2023 Time Seen by Provider: 17:58 Initial Comments 87-year-old female presents to the ER via EMS with complaints of upper and lower abdominal pain the past few days. She reports she has been vomiting all day since early this morning. She also reports burning with urination. She denies fevers. She is currently on IV antibiotics, Rocephin and vancomycin, which she has been on for 2 weeks for a brown recluse spider bite. She reports she has been having diarrhea since being on the antibiotics. She was at [facility] in [place] at the beginning of this month for the brown recluse spider bite, she had surgery to clean out the wound which was located on her second digit of her left hand. Reports the wound on her finger is much improved. She is still supposed to be on the antibiotics for another week. Allergies and Home Medications Allergies Coded Allergies: arformoterol (Verified Allergy, Intermediate, TREMORS, 12/16/18) azithromycin (Verified Allergy, Intermediate, RASH, 12/16/18) cefadroxil (Verified Allergy, Intermediate, RASH, 02/29/20) tolerates Rocephin cephalexin (Verified Allergy, Intermediate, JAW PAIN, 02/29/20) tolerates Rocephin levofloxacin (Verified Allergy, Intermediate, JOINT PAIN, 12/16/18) Penicillins (Verified Allergy, Unknown, 12/16/18) Sulfa (Sulfonamide Antibiotics) (Verified Allergy, Unknown, 12/16/18) albuterol (Verified Allergy, Unknown, 12/16/18) ciprofloxacin (Verified Allergy, Unknown, 12/16/18) erythromycin base (Verified Allergy, Unknown, 12/16/18) vancomycin (Verified Adverse Reaction, Unknown, HIVES, 12/16/18) HAD ITCHING AROUND SCALP Uncoded Allergies: "CYCLINES" (Allergy, Unknown, 10/02/14) Patient Home Medication List Home Medication List Reviewed: Yes Acetaminophen (Tylenol Extra Strength) 500 Mg Tablet, 500 MG PO HS, (Reported) Entered as Reported by: SHENG KIDD on 02/27/20 1313 Cefepime HCl/Dextrose, Iso-Osm (Cefepime 2 gm Injection) 2 Gm/100 Ml Froz.piggy, 2 GM IV DAILY Prescribed by: HAMIDA TURNER on 02/29/20 0920 Nystatin (Nystatin) 100,000 Unit/Gram Cream..g., 15 GM TP BID Prescribed by: Ngoc Ramirez on 04/07/232053 Ondansetron (Ondansetron Odt) 4 Mg Tab.rapdis, 4 MG SL Q4H PRN for NAUSEA/VOMITING Prescribed by: Ngoc Ramirez on 04/07/232053 Review of Systems Review of Systems Constitutional: see HPI Past Mkmicgv-Svprut-Vtzwwg Hx Patient Social History Tobacco Use?: No Use of E-Cig and/or Vaping dev: No Substance use?: No Alcohol Use?: No Pt feels they are or have been: No Immunizations Up To Date Tetanus Booster (TDap): Less than 5yrs Seasonal Allergies Seasonal Allergies: No Past Medical History Surgery/Hospitalization HX: HYST, BLADDER SURGERIES, KEITH Surgeries: Yes (LEFT WRIST FX-PLATE AND SCREWS) Adenoidectomy, Appendectomy, Gallbladder, Hysterectomy, Lumpectomy, Tonsillectomy Respiratory: Yes Pneumonia, COPD Cardiac: No Neurological: Yes (Stated history of Multiple Sclerosis- diagnosed in 1980.) Multiple Sclerosis Reproductive Disorders: No 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 Sexually Transmitted Disease: No HIV/AIDS: No Genitourinary: Yes (Interstitial cystitis) Gastrointestinal: No Musculoskeletal: Yes (FREQUENT FALLS) Fractures Endocrine: No HEENT: Yes (Cataracts removed) Cataract, Glaucoma Loss of Vision: Denies Hearing Impairment: Denies Cancer: No Psychosocial: No Integumentary: Yes (Paper thin skin) Blood Disorders: No Adverse Reaction/Blood Tranf: No (N/A) Family Medical History Cancer, Hypertension Physical Exam Vital Signs Vital Signs - First Documented 04/07/23 17:40 Temp 36.7 Pulse 107 Resp 17 Pulse Ox 95 O2 Delivery Room Air Capillary Refill : Height/Weight/BMI Height: 5'3.00" Weight: 142lbs. 0oz. [id number]; 21.00 BMI Method:Stated General Appearance: WD/WN, no apparent distress Neck: supple, normal inspection Respiratory: lungs clear, normal breath sounds, no respiratory distress, no accessory muscle use Cardiovascular: regular rate, rhythm Gastrointestinal: soft, abnormal bowel sounds (Hypoactive), guarding (Left lower quadrant), tenderness (Left lower quadrant and left upper quadrant) Extremities: normal range of motion, normal inspection Neurologic/Psychiatric: alert, normal mood/affect Skin: normal color, warm/dry Focused Exam Lactate Level 04/07/23 18:25: Lactic Acid Level 1.40 Lactic Acid Level Laboratory Tests Test 04/07/23 18:25 Lactic Acid Level 1.40 MMOL/L (0.50-2.00) Procedures/Interventions Suture Size: 5-0 Progress/Results/Core Measures Results/Orders Lab Results Laboratory Tests Test 04/07/23 18:25 04/07/23 18:43 04/07/23 18:48 Range/Units White Blood Count 18.4 H 4.3-11.0 10^3/uL Red Blood Count 3.69 L 3.80-5.11 10^6/uL Hemoglobin 11.3 L 11.5-16.0 g/dL Hematocrit 36 35-52 % Mean Corpuscular Volume 97 80-99 fL Mean Corpuscular Hemoglobin 31 25-34 pg Mean Corpuscular Hemoglobin Concent 32 32-36 g/dL Red Cell Distribution Width 13.6 10.0-14.5 % Platelet Count 381 130-400 10^3/uL Mean Platelet Volume 10.0 9.0-12.2 fL Immature Granulocyte % (Auto) 1 % Neutrophils (%) (Auto) 93 H 42-75 % Lymphocytes (%) (Auto) 3 L 12-44 % Monocytes (%) (Auto) 3 0-12 % Eosinophils (%) (Auto) 0 0-10 % Basophils (%) (Auto) 0 0-10 % Neutrophils # (Auto) 17.1 H 1.8-7.8 10^3/uL Lymphocytes # (Auto) 0.6 L 1.0-4.0 10^3/uL Monocytes # (Auto) 0.5 0.0-1.0 10^3/uL Eosinophils # (Auto) 0.0 0.0-0.3 10^3/uL Basophils # (Auto) 0.0 0.0-0.1 10^3/uL Immature Granulocyte # (Auto) 0.1 0.0-0.1 10^3/uL Neutrophils % (Manual) 96 % Lymphocytes % (Manual) 4 % Platelet Estimate ADEQUATE Hypochromasia SLIGHT Prothrombin Time 12.8 12.2-14.7 SEC INR Comment 0.9 0.8-1.4 Activated Partial Thromboplast Time 27 24-35 SEC Sodium Level 140 135-145 MMOL/L Potassium Level 3.3 L 3.6-5.0 MMOL/L Chloride Level 105 98-107 MMOL/L Carbon Dioxide Level 20 L 21-32 MMOL/L Anion Gap 15 H 5-14 MMOL/L Blood Urea Nitrogen 11 7-18 MG/DL Creatinine 0.77 0.60-1.30 MG/DL Estimat Glomerular Filtration Rate 75 BUN/Creatinine Ratio 14 Glucose Level 158 H 70-105 MG/DL Lactic Acid Level 1.40 0.50-2.00 MMOL/L Calcium Level 9.0 8.5-10.1 MG/DL Corrected Calcium 9.3 8.5-10.1 MG/DL Total Bilirubin 0.5 0.1-1.0 MG/DL Aspartate Amino Transf (AST/SGOT) 17 5-34 U/L Alanine Aminotransferase (ALT/SGPT) 9 0-55 U/L Alkaline Phosphatase 109 40-136 U/L Total Protein 6.9 6.4-8.2 GM/DL Albumin 3.6 3.2-4.5 GM/DL Lipase 20 8-78 U/L Influenza Type A (RT-PCR) Not Detected Not Detecte Influenza Type B (RT-PCR) Not Detected Not Detecte SARS-CoV-2 RNA (RT-PCR) Not Detected Not Detecte Urine Color YELLOW Urine Clarity CLOUDY Urine pH 5.5 5-9 Urine Specific Amma >=1.030 1.016-1.022 Urine Protein 3+ H NEGATIVE Urine Glucose (UA) NEGATIVE NEGATIVE Urine Ketones 2+ H NEGATIVE Urine Nitrite NEGATIVE NEGATIVE Urine Bilirubin 2+ H NEGATIVE Urine Urobilinogen 0.2 < = 1.0 MG/DL Urine Leukocyte Esterase 1+ H NEGATIVE Urine RBC (Auto) 3+ H NEGATIVE Urine RBC 2-5 H /HPF Urine WBC 50-100 H /HPF Urine Squamous Epithelial Cells 2-5 /HPF Urine Crystals PRESENT H /LPF Urine Amorphous Sediment FEW COLETTE URATES H /LPF Urine Bacteria FEW H /HPF Urine Casts NONE /LPF Urine Mucus SMALL H /LPF Urine Yeast FEW H /HPF Urine Culture Indicated CULTURE PENDING My Orders Orders - NGOC GIVENS SENIOR SCHEDULER Cbc With Automated Diff (04/07/23 18:16) Comprehensive Metabolic Panel (04/07/23 18:16) Blood Culture (04/07/23 18:16) Sputum Culture (04/07/23 18:16) Urinalysis (04/07/23 18:16) Urine Culture (04/07/23 18:16) Protime With Inr (04/07/23 18:16) Partial Thromboplastin Time (04/07/23 18:16) Chest 1 View, Ap/Pa Only (04/07/23 18:16) Ed Iv/Invasive Line Start (04/07/23 18:16) Vital Signs Adult Sepsis Patie Q15M (04/07/23 18:16) Remove Rings In Anticipation O (04/07/23 18:16) Lactic Acid Analyzer (04/07/23 18:16) Lipase (04/07/23 18:16) Ns Iv 1000 Ml (Ns Iv 1000 Ml) (04/07/23 18:30) Ondansetron Injection (Ondansetron Inj (04/07/23 18:30) Covid 19 Inhouse Test (04/07/23 18:31) Influenza A And B By Pcr (04/07/23 18:31) Manual Differential (04/07/23 18:25) Ct Abdomen/Pelvis W (04/07/23 19:09) Iohexol Injection (Omnipaque 350 Mg/Ml 1 (04/07/23 19:30) Received Contrast (Hold Metformin- Contr (04/07/23 19:30) Ns (Ivpb) 100 Ml (Sodium Chloride 0.9% 1 (04/07/23 19:30) Fluconazole Tablet (Ed Only) (Fluconazol (04/07/23 21:00) Medications Given in ED Vital Signs/I&O 04/07/23 04/07/23 17:40 21:07 Temp 36.7 36.9 Pulse 107 99 Resp 17 16 B/P (MAP) Pulse Ox 95 99 O2 Delivery Room Air Room Air 04/08/23 00:00 Intake Total 1000 ml Balance 1000 ml Progress Progress Note : Progress Note Patient seen and evaluated, resting in bed, no acute distress. Patient refusing to allow nurses to check blood pressure. States that it causes her arm to bruise even after only 1 time. Discussed this with patient. Discussed the importance of checking her blood pressure. Patient still refused. Emesis noted in bag, dark in color, does slightly appear like coffee-ground emesis. Patient did eat beef broth prior to coming in, emesis is likely discolored due to what patient ate. Septic work-up initiated including CBC, CMP, lipase, coags, lactic acid, blood cultures x2, urinalysis, urine culture, sputum culture, chest x-ray. 1 L of IV fluids ordered. Zofran ordered. 2044 Labs and imaging reviewed. White blood cell count elevated at 18.4, neutrophil percentage elevated 93. CMP shows slightly decreased potassium 3.3. Slightly decreased CO2 20, slightly elevated anion gap 15. Glucose 158. Coags normal. Urinalysis shows 1+ leukocytes, 3+ RBCs, 50-100 WBCs, few bacteria, few yeast. COVID and flu negative. Chest x-ray shows no airspace opacity or constance pulmonary edema. CT abdomen pelvis shows distention of the colon with moderate amount of fecal material and air with narrowing of the sigmoid with wall thickening. Radiologist suggested that this could be focal inflammatory changes or neoplasm with possible chronic outlet obstruction. No bowel obstruction noted. Patient's previous urine specimen shows white count of "too many to count." Due to patient already being on Rocephin and vancomycin, will hold off on ordering another antibiotic. Patient's urine cultures have been sensitive to Rocephin in the past. Patient already has severe diarrhea from current antibiotics. Do not want to add another one until we get the results of the urine culture. Patient has yeast in her urine, will treat for yeast infection with Diflucan and nystatin cream for fungal infection of groin. This is likely also a result from current antibiotics. Instructed that she needs to be taking a probiotic as well. Patient also appears to be dry, IV fluids are currently infusion. White count in urine could also be related to dehydration. Burning with urination could be related to yeast infection. I discussed admission with patient. Patient states she would rather go home because her sister is home alone at this time. Patient and her sister stay at an assisted living, they have help during the day, but not at night. I will also discharge with Zofran for patient. Patient's heart rate has improved to 90s. Patient states her vomiting related to coughing, states she vomits after she has a coughing fit. Discharge instructions and return precautions provided. Diagnostic Imaging Diagonstic Imaging: Xray Plain Films/CT/US/NM/MRI: chest Comments [facility] [place], [place] NAME: MILI WILKES [facility] REC#: [id number] PT STATUS: REG ER : 1935 PHYSICIAN: NGOC GIVENS APRN ADMIT DATE: 04/07/23/ER Signed Date of Exam:04/07/23 CHEST 1 VIEW, AP/PA ONLY CHEST 1 VIEW, AP/PA ONLY INDICATION: vomiting, ab pain. COMPARISON: Chest radiograph 02/26/2020. FINDINGS: Lungs: Low lung volume. No focal consolidation. Pleura: No pleural effusion or pneumothorax. Heart and Mediastinum: Cardiomegaly. Pulmonary vascularity is within normal limits. Aortic atherosclerosis. Right PICC line tip projects over the SVC. Osseous Structures and Soft Tissues: No acute osseous abnormality. Normal soft tissues. IMPRESSION: Cardiomegaly. No airspace opacity or constance pulmonary edema. Dictated by: Dictated on workstation # [id number] Dict: 04/07/231927 Trans: 04/07/231927 [facility] [place] [id number] Interpreted by: NAIDA SERRANO DO Electronically signed by: NAIDA SERRANO DO 04/07/231927 Departure Impression Primary Impression: Vomiting Additional Impressions: Urinary tract infection Bowel wall thickening Disposition: 01 HOME, SELF-CARE Condition: Stable Departure-Patient Inst. Decision time for Depature: 20:50 Referrals: SPRING ZARATE MD, ERIC B DO Patient Instructions: Urinary Tract Infection, Adult ED Add. Discharge Instructions: You need to follow-up with Dr. Verdin regarding your results of your CT scan. CT scan was concerning for possible neoplasm. You may require a colonoscopy. We will call you if your urine culture comes back and you need another antibiotic. Continue the antibiotics you are currently taking. Use the nystatin cream for your fungal infection of your groin. Make sure that your briefs are staying clean and dry to help improve your fungal infection. Return if you are getting worse not better, if you are unable to keep any food or water down, or any other new, concerning, or worsening symptoms. All discharge instructions reviewed with patient and/or family. Voiced understanding. Scripts Ondansetron (Ondansetron Odt) 4 Mg Tab.rapdis 4 MG SL Q4H PRN for NAUSEA/VOMITING, #15 TAB 0 Refills Prov: NGOC GIVENS APRN 04/07/23 Nystatin (Nystatin) 100,000 Unit/Gram Cream..g. 15 GM TP BID, #1 EA 0 Refills Prov: NGOC GIVENS APRN 04/07/23 Copy Copies To 1: SPRING ZARATE MD Copies To 2: NANCY VERDIN BRITTANY R APRN Apr 07, 2023 18:29
[2023-04-07] MEDS ORDERED: ONDANSETRON INJECTION 4 MG/2 ML (SDV) IVP ONE (18:30)
[2023-04-07] MEDS ORDERED: NS IV 1000 ML 1,000 ML IV SCH (18:30)
[2023-04-07 18:41] LABS: BASOPHILS % (AUTO) 0 % (0-10); EOSINOPHILS % (AUTO) 0 % (0-10); HEMATOCRIT 36 % (35-52); HEMOGLOBIN 11.3 g/dL (11.5-16.0); LYMPHOCYTES # (AUTO) 0.6 10^3/uL (1.0-4.0); LYMPHOCYTES % (AUTO) 3 % (12-44); MEAN CORPUSCULAR HEMOGLOBIN 31 pg (25-34); MEAN CORPUSCULAR HGB CONC 32 g/dL (32-36); MEAN CORPUSCULAR VOLUME 97 fL (80-99); MONOCYTES # (AUTO) 0.5 10^3/uL (0.0-1.0); MONOCYTES % (AUTO) 3 % (0-12); NEUTROPHILS # (AUTO) 17.1 10^3/uL (1.8-7.8); NEUTROPHILS % (AUTO) 93 % (42-75); PLATELET COUNT 381 10^3/uL (130-400); WHITE BLOOD COUNT 18.4 10^3/uL (4.3-11.0)
[2023-04-07 18:53] LABS: ALBUMIN 3.6 GM/DL (3.2-4.5); INR 0.9 (0.8-1.4); POTASSIUM 3.3 MMOL/L (3.6-5.0); PROTHROMBIN TIME PATIENT 12.8 SEC (12.2-14.7)
[2023-04-07 18:56] LABS: TOTAL PROTEIN 6.9 GM/DL (6.4-8.2)
[2023-04-07 18:58] LABS: BILIRUBIN,TOTAL 0.5 MG/DL (0.1-1.0)
[2023-04-07 18:59] LABS: CREATININE SERUM 0.77 MG/DL (0.60-1.30)
[2023-04-07] MEDS ORDERED: NS 100 ML (IVPB) BAG IV ONE (19:30)
[2023-04-07] MEDS ORDERED: HOLD METFORMIN - RECEIVED CONTRAST 20 ML VIAL IV SCH (19:30)
[2023-04-07] MEDS ORDERED: IOHEXOL 350 MG/ML 100 ML (OMNIPAQUE 350) VIAL IV ONE (19:30)
--- NOTE | 2023-04-07 19:30 | Diagnostic Imaging Report ---
CHEST 1 VIEW, AP/PA ONLY INDICATION: vomiting, ab pain. COMPARISON: Chest radiograph 02/26/2020. FINDINGS: Lungs: Low lung volume. No focal consolidation. Pleura: No pleural effusion or pneumothorax. Heart and Mediastinum: Cardiomegaly. Pulmonary vascularity is within normal limits. Aortic atherosclerosis. Right PICC line tip projects over the SVC. Osseous Structures and Soft Tissues: No acute osseous abnormality. Normal soft tissues. IMPRESSION: Cardiomegaly. No airspace opacity or constance pulmonary edema. Dictated by: Dictated on workstation # [id number]
[2023-04-07 19:40] LABS: CLARITY,URINE CLOUDY; COLOR,URINE YELLOW; GLUCOSE, URINE (UA) NEGATIVE (NEGATIVE); PH,URINE 5.5 (5-9); PROTEIN,URINE 3+ (NEGATIVE)
[2023-04-07 19:41] LABS: AMORPHOUS SEDIMENT,UR FEW AMOR URATES /LPF; BACTERIA,URINE FEW /HPF; BILIRUBIN,URINE 2+ (NEGATIVE); KETONES,URINE 2+ (NEGATIVE); LEUKOCYTE ESTERASE ,URINE 1+ (NEGATIVE); NITRITE,URINE NEGATIVE (NEGATIVE); WBC,URINE 50-100 /HPF; YEAST,URINE FEW /HPF
--- NOTE | 2023-04-07 19:55 | Diagnostic Imaging Report ---
PROCEDURE: CT abdomen and pelvis with contrast. TECHNIQUE: Multiple contiguous axial images were obtained through the abdomen and pelvis after administration of intravenous contrast. Auto Exposure Controls were utilized during the CT exam to meet ALARA standards for radiation dose reduction. All CT scans use one or more of the following dose optimizing techniques: automated exposure control, MA and/or KvP adjustment based on patient size and exam type or iterative reconstruction. INDICATION: Vomiting and abdominal pain. COMPARISON: CT of the abdomen pelvis on 09/29/2017. FINDINGS: Moderate diffuse distention of the colon with moderate amount of fecal material and air throughout the colon with focal narrowing of the sigmoid: With associated wall thickening (image [id number] series 601). Trace free fluid within the pelvis. No loculated fluid collections or free air. The liver is normal. The gallbladder is postsurgical. The spleen is normal. The kidneys are normal. The adrenal glands are normal. The pancreas is normal. There is a small hiatal hernia. The urinary bladder is decompressed and demonstrates air within the urinary bladder. The osseous structures demonstrate diffuse demineralization. No apparent lytic or sclerotic bone lesion. IMPRESSION: Moderate diffuse distention of the colon with moderate amount of fecal material and air throughout the colon with focal narrowing of the sigmoid: With associated wall thickening (image [id number] series 601). This may be seen with focal inflammatory changes or neoplasm with possible chronic outlet obstruction. No free air, loculated fluid collections, or ascites. No small bowel obstruction. Dictated by: Dictated on workstation # [id number]
[2023-04-07 19:56] LABS: HYPOCHROMASIA SLIGHT; LYMPHOCYTES % (MANUAL) 4 %; NEUTROPHILS % (MANUAL) 96 %; PLATELET ESTIMATE ADEQUATE
[2023-04-07] MEDS ORDERED: ONDA4TAB11 SL (20:54)
[2023-04-07] MEDS ORDERED: NYST15CR35 TP (20:54)
== END 2023-04-07 21:55 | disposition home or self-care (01) ==
LOC: EDUNIT# 17:37 → ER 17:39
DX: N39.0 Urinary tract infection, site not specified (principal); K63.9 Disease of intestine, unspecified; R11.10 Vomiting, unspecified; Z90.49 Acquired absence of other specified parts of digestive tract; Z20.822 Contact with and (suspected) exposure to COVID-19
CPT/HCPCS: 36415; 71045; 74177; 80053; 81000; 83605; 83690; 85007; 85027; 85610; 85730; 87040; 87088; 87106; 87636

== ENCOUNTER 2023-04-10 09:25 | Emergency (ER) | payer MEDICARE, OTHER ==
[~2023-04-10] VITALS: Ht 157.4 cm; Wt 54.4 kg
[~2023-04-10 09:25] MED LIST changes: +NYST15CR35 TP; +ONDA4TAB11 SL
[2023-04-10 09:47] LABS: BASOPHILS % (AUTO) 0 % (0-10); EOSINOPHILS % (AUTO) 0 % (0-10); HEMATOCRIT 36 % (35-52); HEMOGLOBIN 11.1 g/dL (11.5-16.0); LYMPHOCYTES # (AUTO) 1.5 10^3/uL (1.0-4.0); LYMPHOCYTES % (AUTO) 9 % (12-44); MEAN CORPUSCULAR HEMOGLOBIN 31 pg (25-34); MEAN CORPUSCULAR HGB CONC 31 g/dL (32-36); MEAN CORPUSCULAR VOLUME 100 fL (80-99); MONOCYTES # (AUTO) 1.4 10^3/uL (0.0-1.0); MONOCYTES % (AUTO) 8 % (0-12); NEUTROPHILS % (AUTO) 82 % (42-75); PLATELET COUNT 367 10^3/uL (130-400); WHITE BLOOD COUNT 17.1 10^3/uL (4.3-11.0)
[2023-04-10 10:09] LABS: BAND NEUTROPHILS 0 %; BASOPHILS % (MANUAL) 0 %; EOSINOPHILS % (MANUAL) 1 %; LYMPHOCYTES % (MANUAL) 6 %; MONOCYTES % (MANUAL) 5 %; NEUTROPHILS % (MANUAL) 88 %; RBC MORPH NORMAL
[2023-04-10 10:18] LABS: ALBUMIN 3.2 GM/DL (3.2-4.5); CHLORIDE 103 MMOL/L (98-107); POTASSIUM 3.5 MMOL/L (3.6-5.0); SODIUM 136 MMOL/L (135-145)
[2023-04-10 10:19] LABS: CALCIUM 8.5 MG/DL (8.5-10.1)
[2023-04-10 10:21] LABS: GLUCOSE 110 MG/DL (70-105)
[2023-04-10 10:22] LABS: BILIRUBIN,TOTAL 0.5 MG/DL (0.1-1.0); CARBON DIOXIDE 16 MMOL/L (21-32)
[2023-04-10 10:24] LABS: ALKALINE PHOSPHATASE 85 U/L (40-136); CREATININE SERUM 0.94 MG/DL (0.60-1.30); GFR ESTIMATED 59
[2023-04-10 10:25] LABS: BUN/CREATININE RATIO 21
--- NOTE | 2023-04-10 10:26 | Diagnostic Imaging Report ---
INDICATION: Shortness of breath and weakness. Time of Exam: 10:01 AM Correlation is made with prior chest 04/07/2023. Heart size is stable. Right hemidiaphragm is mildly elevated. There is some subsegmental atelectasis in the right base. Otherwise lungs are clear. No effusion or pneumothorax is seen. Right upper extremity PICC line has tip overlying the SVC. IMPRESSION: Right hemidiaphragmatic elevation with right basilar subsegmental atelectasis. Dictated by: Dictated on workstation # [id number]
[2023-04-10 10:27] LABS: ALANINE AMINOTRANSFERASE 7 U/L (0-55)
[2023-04-10 10:32] LABS: CLARITY,URINE CLOUDY; COLOR,URINE YELLOW; GLUCOSE, URINE (UA) NEGATIVE (NEGATIVE); KETONES,URINE 2+ (NEGATIVE); NITRITE,URINE POSITIVE (NEGATIVE); PH,URINE 5.5 (5-9); PROTEIN,URINE 3+ (NEGATIVE)
--- NOTE | 2023-04-10 10:32 | ED General ---
General Chief Complaint: General Problems/Pain Stated Complaint: WEAKNESS Nursing Triage Note: arrives via ems from home with complaint from caregiver stating patient was unresponsive at home. patient is alert and oriented at this time. patient states she is just sleepy. refusing blood pressure. Source of Information: Patient Exam Limitations: No Limitations History of Present Illness Date Seen by Provider: Apr 10, 2023 Time Seen by Provider: 10:02 Initial Comments 87-year-old female presents to the emergency department today after her caregiver called EMS for "unresponsiveness." At the time of EMS arrival fire was on scene stating that the patient had been asleep. They woke her up and she has been alert and oriented since that time. Patient refused any blood pressure measurements during transport and is refusing again upon arrival here. Notably she was seen here a couple of days ago and had a CT scan of her abdomen pelvis for some abdominal pain that she was having. She had some diffuse wall thickening of her colon, possible chronic outlet obstruction but no acute bowel obstruction. She was vomiting at that time. She states her vomiting has improved. Until recently, She was on IV Rocephin and vancomycin via PICC line after she had a spider bite to her left hand that ultimately had to be incised and drained in the operating room, performed at [facility]. Her only complaint on arrival is generalized weakness. All other systems reviewed and negative except documented per HPI. Voice recognition software was used to help create this chart Allergies and Home Medications Allergies Coded Allergies: arformoterol (Verified Allergy, Intermediate, TREMORS, 12/16/18) azithromycin (Verified Allergy, Intermediate, RASH, 12/16/18) cefadroxil (Verified Allergy, Intermediate, RASH, 02/29/20) tolerates Rocephin cephalexin (Verified Allergy, Intermediate, JAW PAIN, 02/29/20) tolerates Rocephin levofloxacin (Verified Allergy, Intermediate, JOINT PAIN, 12/16/18) Penicillins (Verified Allergy, Unknown, 12/16/18) Sulfa (Sulfonamide Antibiotics) (Verified Allergy, Unknown, 12/16/18) albuterol (Verified Allergy, Unknown, 12/16/18) ciprofloxacin (Verified Allergy, Unknown, 12/16/18) erythromycin base (Verified Allergy, Unknown, 12/16/18) vancomycin (Verified Adverse Reaction, Unknown, HIVES, 12/16/18) HAD ITCHING AROUND SCALP Uncoded Allergies: "CYCLINES" (Allergy, Unknown, 10/02/14) Patient Home Medication List Home Medication List Reviewed: Yes Acetaminophen (Tylenol Extra Strength) 500 Mg Tablet, 500 MG PO HS, (Reported) Entered as Reported by: SHENG KIDD on 02/27/20 1313 Cefepime HCl/Dextrose, Iso-Osm (Cefepime 2 gm Injection) 2 Gm/100 Ml Froz.piggy, 2 GM IV DAILY Prescribed by: HAMIDA TURNER on 02/29/20 0920 Nystatin (Nystatin) 100,000 Unit/Gram Cream..g., 15 GM TP BID Prescribed by: Ngoc Ramirez on 04/07/232053 Ondansetron (Ondansetron Odt) 4 Mg Tab.rapdis, 4 MG SL Q4H PRN for NAUSEA/VOMITING Prescribed by: Ngoc Ramirez on 04/07/232053 Review of Systems Review of Systems Constitutional: see HPI Past Hmbxpla-Ccbwlq-Lxaeqs Hx Patient Social History Tobacco Use?: No Use of E-Cig and/or Vaping dev: No Substance use?: No Alcohol Use?: No Immunizations Up To Date Tetanus Booster (TDap): Less than 5yrs First/Initial COVID19 Vaccinat: "cant remember" Seasonal Allergies Seasonal Allergies: No Past Medical History Surgery/Hospitalization HX: HYST, BLADDER SURGERIES, KEITH Surgeries: Yes (LEFT WRIST FX-PLATE AND SCREWS) Adenoidectomy, Appendectomy, Gallbladder, Hysterectomy, Lumpectomy, Tonsillectomy Respiratory: Yes Pneumonia, COPD Cardiac: No Neurological: Yes (Stated history of Multiple Sclerosis- diagnosed in 1980.) Multiple Sclerosis Reproductive Disorders: No [employer] History: Hysterectomy Sexually Transmitted Disease: No HIV/AIDS: No Genitourinary: Yes (Interstitial cystitis) Gastrointestinal: No Musculoskeletal: Yes (FREQUENT FALLS) Fractures Endocrine: No HEENT: Yes (Cataracts removed) Cataract, Glaucoma Loss of Vision: Denies Hearing Impairment: Denies Cancer: No Psychosocial: No Integumentary: Yes (Paper thin skin) Blood Disorders: No Adverse Reaction/Blood Tranf: No (N/A) Family Medical History Cancer, Hypertension Physical Exam Vital Signs Vital Signs - First Documented 04/10/23 09:29 Temp 36.2 Pulse 91 Resp 16 Pulse Ox 96 O2 Delivery Room Air Capillary Refill : Greater Than 3 Seconds Height, Weight, BMI Height: 5'3.00" Weight: 142lbs. 0oz. 64.120182ht; 21.00 BMI Method:Stated General Appearance: No Apparent Distress, Chronically ill Eyes: Bilateral Eye Normal Inspection, Bilateral Eye PERRL, Bilateral Eye EOMI HEENT: Normal ENT Inspection, Pharynx Normal Neck: Normal Inspection, Non Tender, Supple Respiratory: Chest Non Tender, Lungs Clear, Normal Breath Sounds, No Accessory Muscle Use, No Respiratory Distress Cardiovascular: Regular Rate, Rhythm, No Murmur, Normal Peripheral Pulses, Other (Refusing blood pressure measurement) Gastrointestinal: Normal Bowel Sounds, No Organomegaly, Soft, Tenderness (Mild tenderness in the upper abdomen bilaterally) Extremity: Normal Capillary Refill, Other (Bandaged skin tears to the left forearm. Previous surgical site looks good with no evidence of infection.) Neurologic/Psychiatric: Alert, Oriented x3 Skin: Normal Color, Warm/Dry Focused Exam Lactate Level 04/10/23 09:55: Lactic Acid Level 1.57 Lactic Acid Level Laboratory Tests Test 04/10/23 09:55 Lactic Acid Level 1.57 MMOL/L (0.50-2.00) Procedures/Interventions Suture Size: 5-0 Progress/Results/Core Measures Suspected Sepsis SIRS Temperature: Pulse: 91 Respiratory Rate: 16 Laboratory Tests 04/10/23 09:38: White Blood Count 17.1H Blood Pressure / Mean: 04/10/23 09:55: Lactic Acid Level 1.57 Laboratory Tests 04/10/23 09:38: Creatinine 0.94, Platelet Count 367, Total Bilirubin 0.5 Results/Orders Lab Results Laboratory Tests Test 04/10/23 09:38 04/10/23 09:55 04/10/23 10:05 Range/Units White Blood Count 17.1 H 4.3-11.0 10^3/uL Red Blood Count 3.58 L 3.80-5.11 10^6/uL Hemoglobin 11.1 L 11.5-16.0 g/dL Hematocrit 36 35-52 % Mean Corpuscular Volume 100 H 80-99 fL Mean Corpuscular Hemoglobin 31 25-34 pg Mean Corpuscular Hemoglobin Concent 31 L 32-36 g/dL Red Cell Distribution Width 13.8 10.0-14.5 % Platelet Count 367 130-400 10^3/uL Mean Platelet Volume 10.0 9.0-12.2 fL Immature Granulocyte % (Auto) 1 % Neutrophils (%) (Auto) 82 H 42-75 % Lymphocytes (%) (Auto) 9 L 12-44 % Monocytes (%) (Auto) 8 0-12 % Eosinophils (%) (Auto) 0 0-10 % Basophils (%) (Auto) 0 0-10 % Neutrophils # (Auto) 14.0 H 1.8-7.8 10^3/uL Lymphocytes # (Auto) 1.5 1.0-4.0 10^3/uL Monocytes # (Auto) 1.4 H 0.0-1.0 10^3/uL Eosinophils # (Auto) 0.0 0.0-0.3 10^3/uL Basophils # (Auto) 0.0 0.0-0.1 10^3/uL Immature Granulocyte # (Auto) 0.1 0.0-0.1 10^3/uL Neutrophils % (Manual) 88 % Lymphocytes % (Manual) 6 % Monocytes % (Manual) 5 % Eosinophils % (Manual) 1 % Basophils % (Manual) 0 % Band Neutrophils 0 % Blood Morphology Comment NORMAL Sodium Level 136 135-145 MMOL/L Potassium Level 3.5 L 3.6-5.0 MMOL/L Chloride Level 103 98-107 MMOL/L Carbon Dioxide Level 16 L 21-32 MMOL/L Anion Gap 17 H 5-14 MMOL/L Blood Urea Nitrogen 20 H 7-18 MG/DL Creatinine 0.94 0.60-1.30 MG/DL Estimat Glomerular Filtration Rate 59 BUN/Creatinine Ratio 21 Glucose Level 110 H 70-105 MG/DL Calcium Level 8.5 8.5-10.1 MG/DL Corrected Calcium 9.1 8.5-10.1 MG/DL Total Bilirubin 0.5 0.1-1.0 MG/DL Aspartate Amino Transf (AST/SGOT) 15 5-34 U/L Alanine Aminotransferase (ALT/SGPT) 7 0-55 U/L Alkaline Phosphatase 85 40-136 U/L Troponin I < 0.028 <0.028 NG/ML Total Protein 6.0 L 6.4-8.2 GM/DL Albumin 3.2 3.2-4.5 GM/DL Lactic Acid Level 1.57 0.50-2.00 MMOL/L Urine Color YELLOW Urine Clarity CLOUDY Urine pH 5.5 5-9 Urine Specific [place] >=1.030 1.016-1.022 Urine Protein 3+ H NEGATIVE Urine Glucose (UA) NEGATIVE NEGATIVE Urine Ketones 2+ H NEGATIVE Urine Nitrite POSITIVE H NEGATIVE Urine Bilirubin 1+ H NEGATIVE Urine Urobilinogen 0.2 < = 1.0 MG/DL Urine Leukocyte Esterase 3+ H NEGATIVE Urine RBC (Auto) 3+ H NEGATIVE Urine RBC 5-10 H /HPF Urine WBC TNTC H /HPF Urine Squamous Epithelial Cells NONE /HPF Urine Crystals NONE /LPF Urine Bacteria FEW H /HPF Urine Casts NONE /LPF Urine Mucus NEGATIVE /LPF Urine Culture Indicated CULTURE PENDING My Orders Orders - EKATERINA HUI DO Cbc With Automated Diff (04/10/23 09:34) Comprehensive Metabolic Panel (04/10/23 09:34) Blood Culture (04/10/23 09:34) Urinalysis (04/10/23 09:34) Urine Culture (04/10/23 09:34) Chest 1 View, Ap/Pa Only (04/10/23 09:34) Vital Signs Adult Sepsis Patie Q15M (04/10/23 09:34) Lactic Acid Analyzer (04/10/23 09:34) Troponin I Nasreen (04/10/23 09:34) Ekg Tracing (04/10/23 09:34) Implanted Port: Access (04/10/23 09:35) Manual Differential (04/10/23 09:38) Ns Iv 500 Ml (Ns Iv 500 Ml) (04/10/23 10:55) Potassium Chloride (Tablet) (Potassium C (04/10/23 11:00) Ceftriaxone Iv/Im (Ceftriaxone Iv/Im) (04/10/23 11:15) Medications Given in ED Current Medications Medications Dose Ordered Sig/Clare Route Start Time Stop Time Status Last Admin Dose Admin Potassium Chloride 40 meq ONCE ONCE PO 04/10/23 11:00 04/10/23 11:01 DC 04/10/23 11:05 40 MEQ Vital Signs/I&O 04/10/23 09:29 Temp 36.2 Pulse 91 Resp 16 B/P (MAP) Pulse Ox 96 O2 Delivery Room Air Capillary Refill : Greater Than 3 Seconds ECG Comment Sinus rhythm with a rate of 90 bpm. Normal intervals. Left axis deviation. T wave inversions in lead III. No ectopy. No STEMI. Departure Communication (Admissions) Patient is hemodynamically stable however she will let us take any blood press ure stating that it hurts her arm and causes bruising even after 1 attempts. I tried to impress upon her the importance of checking all vital signs and she again declines. Recheck labs showing a slight acidosis, slight hypokalemia. Her hypokalemia is improved from evaluation a few days ago. She also has elevation of white blood cell count, again improved from evaluation a few days ago. Her urine according to nursing staff appears grossly infected. Urinalysis is in agreement without finding suggesting likely urinary tract infection. She has had similar symptoms with UTIs in the past. She has been off antibiotics for about a week now for her finger. She had vancomycin and Rocephin at that time though they are listed on her allergy list. I we will give her a dose of IV Rocephin here. We will discharge her with Macrobid. Record review shows urine cultures primarily with E. coli, Enterococcus both of which were sensitive to Macrobid. She was given these of IV fluids as well as 40 mill equivalents potassium by mouth. Impression Primary Impression: Urinary tract infection Qualified Codes: N30.01 - Acute cystitis with hematuria Disposition: HOME, SELF-CARE Condition: Stable Departure-Patient Inst. Referrals: SPRING ZARATE MD (PCP/Family) Primary Care Physician Patient Instructions: Urinary Tract Infection, Adult (DC) Add. Discharge Instructions: Take the antibiotics as prescribed until they are gone. Do not stop taking them simply because you start feeling better. Increase your fluids at home and rest. Follow-up with your primary doctor in the next 48 hours for recheck. Return to the emergency department for any severe concerns with All discharge instructions reviewed with patient and/or family. Voiced understanding. Scripts Nitrofurantoin Monohyd/M-Cryst (Macrobid 100 mg Capsule) 100 Mg Capsule 1 TAB PO BID for 7 Days, #14 CAP Prov: EKATERINA HUI DO 04/10/23 EKATERINA HUI DO Apr 10, 2023 10:32
[2023-04-10 10:33] LABS: BILIRUBIN,URINE 1+ (NEGATIVE); LEUKOCYTE ESTERASE ,URINE 3+ (NEGATIVE)
[2023-04-10 10:35] LABS: WBC,URINE TNTC /HPF
[2023-04-10 10:36] LABS: BACTERIA,URINE FEW /HPF
[2023-04-10] MEDS ORDERED: NS IV 500 ML 500 ML IV STA (10:55)
[2023-04-10] MEDS ORDERED: POTASSIUM CHLORIDE 20 MEQ TABLET PO ONE (11:00)
[2023-04-10] MEDS ORDERED: NITR-65 PO (11:12)
[2023-04-10] MEDS ORDERED: cefTRIAXone IV/IM 1,000 MG in NS (IVPB) 50 ML 50 ML IV ONE (11:15)
== END 2023-04-10 12:26 | disposition home or self-care (01) ==
LOC: EDUNIT# 09:25 → ER 09:26
DX: N39.0 Urinary tract infection, site not specified (principal); Z88.2 Allergy status to sulfonamides; Z88.0 Allergy status to penicillin; Z88.1 Allergy status to other antibiotic agents
CPT/HCPCS: 36415; 71045; 80053; 81000; 83605; 84484; 85007; 85027; 87040; 87077; 87088; 87186; 93005

== ENCOUNTER 2023-04-11 06:51 | Emergency (ER) | payer MEDICARE, OTHER ==
[~2023-04-11] VITALS: Ht 160 cm; Wt 54.4 kg
[~2023-04-11 06:51] MED LIST changes: +NITR-65 PO
[2023-04-11 07:10] LABS: BASOPHILS % (AUTO) 0 % (0-10); EOSINOPHILS # (AUTO) 0.2 10^3/uL (0.0-0.3); EOSINOPHILS % (AUTO) 1 % (0-10); HEMATOCRIT 38 % (35-52); HEMOGLOBIN 11.3 g/dL (11.5-16.0); LYMPHOCYTES # (AUTO) 0.8 10^3/uL (1.0-4.0); LYMPHOCYTES % (AUTO) 6 % (12-44); MEAN CORPUSCULAR HEMOGLOBIN 30 pg (25-34); MEAN CORPUSCULAR HGB CONC 30 g/dL (32-36); MEAN CORPUSCULAR VOLUME 101 fL (80-99); MEAN PLATELET VOLUME 10.2 fL (9.0-12.2); MONOCYTES # (AUTO) 0.6 10^3/uL (0.0-1.0); MONOCYTES % (AUTO) 5 % (0-12); NEUTROPHILS # (AUTO) 11.3 10^3/uL (1.8-7.8); NEUTROPHILS % (AUTO) 87 % (42-75); PLATELET COUNT 385 10^3/uL (130-400)
[2023-04-11 07:21] LABS: ALBUMIN 3.1 GM/DL (3.2-4.5)
[2023-04-11 07:22] LABS: POTASSIUM 4.6 MMOL/L (3.6-5.0)
[2023-04-11 07:23] LABS: CALCIUM 8.9 MG/DL (8.5-10.1)
[2023-04-11 07:24] LABS: TOTAL PROTEIN 5.9 GM/DL (6.4-8.2)
[2023-04-11 07:26] LABS: BILIRUBIN,TOTAL 0.5 MG/DL (0.1-1.0)
--- NOTE | 2023-04-11 07:26 | Diagnostic Imaging Report ---
INDICATION: 87-year-old female with shortness of breath chest pain. COMPARISON: 04/10/2023 FINDINGS: Single view chest shows the cardiac contour to be upper limits of normal. There is some increasing central venous congestion. Some perihilar and bibasilar infiltrates are seen. There is aortic calcific atherosclerosis. Right-sided PICC line tip is stable. Soft tissues and bony thorax are unremarkable. IMPRESSION: 1. Slight increased central venous congestion suggesting element of congestive heart failure. 2. Some perihilar infiltrates are seen. The chest otherwise senescent. There is aortic calcific atherosclerosis. 3. Stable right-sided PICC line. Dictated by: Dictated on workstation # [id number]
[2023-04-11 07:28] LABS: BAND NEUTROPHILS 4 %; CREATININE SERUM 1.49 MG/DL (0.60-1.30); LYMPHOCYTES % (MANUAL) 5 %; MONOCYTES % (MANUAL) 3 %; NEUTROPHILS % (MANUAL) 86 %; RBC MORPH NORMAL; REACTIVE LYMPHOCYTES 2 %
[2023-04-11 07:36] LABS: PROTHROMBIN TIME PATIENT 13.5 SEC (12.2-14.7)
[2023-04-11] MEDS ORDERED: cefTRIAXone IV/IM 1,000 MG in NS (IVPB) 50 ML 50 ML IV STA (07:58)
--- NOTE | 2023-04-11 07:58 | ED General ---
General Chief Complaint: Respiratory Problems Stated Complaint: SOA Nursing Triage Note: TO ED [facility]IA [facility] FROM HOME TO ROOM 7. EMS WAS CALLED FOR SOA AND WHEEZING. EMS GAVE DUONEB EN ROUTE. PT REFUSED BLOOD PRESSURE EN ROUTE AND REFUSED BP ON ARRIVAL TO ER. PT WAS SEEN IN ER YESTERDAY 04/10/23 AND REFUSED ANY BP's TAKEN WELL. PT PRESENTS WITH RIGHT UPPER ARM PICC FOR RECEIVING IV ANTIBIOTICS THAT WERE COMPLETED A WEEK AGO. O2 SAT 93-94% ON ROOM AIR ON ARRIVAL TO ER. Source of Information: Patient, EMS History of Present Illness Date Seen by Provider: Apr 11, 2023 Time Seen by Provider: 06:55 Initial Comments Patient is here by EMS with report of shortness of air and wheezing this morning. EMS reports that initial O2 sats were okay but she was wheezing. Patient is refusing blood pressure evaluation and has done that over the last few visits here as well. EMS reports giving a DuoNeb with much improvement on breathing. Patient was seen yesterday for abdominal discomfort and was found to have a urinary tract infection. She was initiated on Rocephin and then had outpatient prescription for Macrobid. Did have elevated white count and nitrite positive UTI yesterday. Previous urine from the on the visit previous to yesterday showed yeast and she was treated with Diflucan at the time. She has had some bowel problems and has had decreased bowel movements. I did discuss with her the concerns about her being very sick and would like to get her blood pressure and she has declined and states that she knows where she is going and does not want aggressive therapy and does not want blood pressure cuff. She does follow with Dr. Salmeron. Her main concern is cough and wheezing currently. She lives at home. Timing/Duration: 1-3 Hours Severity: Moderate Associated Systoms: No Chest Pain; Cough; No Fever/Chills, No Nausea/Vomiting; Shortness of Air, Weakness Allergies and Home Medications Allergies Coded Allergies: arformoterol (Verified Allergy, Intermediate, TREMORS, 12/16/18) azithromycin (Verified Allergy, Intermediate, RASH, 12/16/18) cefadroxil (Verified Allergy, Intermediate, RASH, 02/29/20) tolerates Rocephin cephalexin (Verified Allergy, Intermediate, JAW PAIN, 02/29/20) tolerates Rocephin levofloxacin (Verified Allergy, Intermediate, JOINT PAIN, 12/16/18) Penicillins (Verified Allergy, Unknown, 12/16/18) Sulfa (Sulfonamide Antibiotics) (Verified Allergy, Unknown, 12/16/18) albuterol (Verified Allergy, Unknown, 12/16/18) ciprofloxacin (Verified Allergy, Unknown, 12/16/18) erythromycin base (Verified Allergy, Unknown, 12/16/18) vancomycin (Verified Adverse Reaction, Unknown, HIVES, 12/16/18) HAD ITCHING AROUND SCALP Uncoded Allergies: "CYCLINES" (Allergy, Unknown, 10/02/14) Patient Home Medication List Home Medication List Reviewed: Yes Acetaminophen (Tylenol Extra Strength) 500 Mg Tablet, 500 MG PO HS, (Reported) Entered as Reported by: SHENG KIDD on 02/27/20 1313 Cefepime HCl/Dextrose, Iso-Osm (Cefepime 2 gm Injection) 2 Gm/100 Ml Froz.piggy, 2 GM IV DAILY Prescribed by: HAMIDA TURNER on 02/29/20 0920 Nitrofurantoin Monohyd/M-Cryst (Macrobid 100 mg Capsule) 100 Mg Capsule, 1 TAB PO BID Prescribed by: EKATERINA HUI MD on 04/10/23 111 Nystatin (Nystatin) 100,000 Unit/Gram Cream..g., 15 GM TP BID Prescribed by: Ngoc Ramirez on 04/07/232053 Ondansetron (Ondansetron Odt) 4 Mg Tab.rapdis, 4 MG SL Q4H PRN for NAUSEA/VOMIT ING Prescribed by: Ngoc Ramirez on 04/07/232053 Review of Systems Review of Systems Constitutional: see HPI; No fever EENTM: No nose congestion, No throat pain Respiratory: cough, short of breath, wheezing Cardiovascular: No chest pain Gastrointestinal: abdominal pain, constipation; No nausea, No vomiting Genitourinary: see HPI Skin: change in color, lesions (Tarm wrapped in dressing) Psychiatric/Neurological: Weakness Past Ndzaccx-Gqiggd-Yrmjlb Hx Patient Social History Tobacco Use?: No Substance use?: No Alcohol Use?: No Immunizations Up To Date Tetanus Booster (TDap): Less than 5yrs First/Initial COVID19 Vaccinat: "cant remember" COVID19 Vaccine Mainframe Analyst: UNKNOWN Seasonal Allergies Seasonal Allergies: No Past Medical History Surgery/Hospitalization HX: HYST, BLADDER SURGERIES, KEITH Surgeries: Yes (LEFT WRIST FX-PLATE AND SCREWS) Adenoidectomy, Appendectomy, Gallbladder, Hysterectomy, Lumpectomy, To nsillectomy Respiratory: Yes Pneumonia, COPD Cardiac: No Neurological: Yes (Stated history of Multiple Sclerosis- diagnosed in 1980.) Multiple Sclerosis Reproductive Disorders: No RN BARIATRIC History: Hysterectomy Sexually Transmitted Disease: No HIV/AIDS: No Genitourinary: Yes (Interstitial cystitis) Gastrointestinal: No Musculoskeletal: Yes (FREQUENT FALLS) Fractures Endocrine: No HEENT: Yes (Cataracts removed) Cataract, Glaucoma Loss of Vision: Denies Hearing Impairment: Denies Cancer: No Psychosocial: No Integumentary: Yes (Paper thin skin) Blood Disorders: No Adverse Reaction/Blood Tranf: No (N/A) Family Medical History Reviewed Nursing Family Hx Cancer, Hypertension Physical Exam-Suspected Sepsis Physical Exam Vital Signs Vital Signs - First Documented Capillary Refill : Less Than 3 Seconds Height, Weight, BMI Height: 5'3.00" Weight: 142lbs. 0oz. 64.405243gz; 21.00 BMI Method:Stated General Appearance: Mild Distress, Thin HEENT: PERRL/EOMI, Pharynx Normal Neck: Non Tender, Supple Respiratory: Crackles (Bilateral bases), Wheezing (Yanci) Cardiovascular: No Murmur, Tachycardia Gastrointestinal: Non Tender, Soft Back: Normal Inspection, No CVA Tenderness, No Vertebral Tenderness Extremity: No Calf Tenderness, Other (Sting to the left arm in the area of the forearm where apparently she has had previous wound. Bruising noted to both arms.) Neurologic/Psychiatric: Alert, Oriented x3, Normal Mood/Affect Skin: warm/dry Focused Exam Lactate Level 04/11/23 07:07: Lactic Acid Level 2.21*H Lactic Acid Level Laboratory Tests Test 04/11/23 07:07 Lactic Acid Level 2.21 MMOL/L (0.50-2.00) *H Procedures/Interventions Suture Size: 5-0 Progress/Results/Core Measures Suspected Sepsis SIRS Temperature: Pulse: 112 Respiratory Rate: 22 Laboratory Tests 04/11/23 07:07: White Blood Count 13.0H Blood Pressure / Mean: 04/11/23 07:07: Lactic Acid Level 2.21*H Laboratory Tests 04/11/23 07:07: Creatinine 1.49H, INR Comment 1.0, Platelet Count 385, Total Bilirubin 0.5 Results/Orders Lab Results Laboratory Tests Test 04/11/23 07:07 Range/Units White Blood Count 13.0 H 4.3-11.0 10^3/uL Red Blood Count 3.72 L 3.80-5.11 10^6/uL Hemoglobin 11.3 L 11.5-16.0 g/dL Hematocrit 38 35-52 % Mean Corpuscular Volume 101 H 80-99 fL Mean Corpuscular Hemoglobin 30 25-34 pg Mean Corpuscular Hemoglobin Concent 30 L 32-36 g/dL Red Cell Distribution Width 13.9 10.0-14.5 % Platelet Count 385 130-400 10^3/uL Mean Platelet Volume 10.2 9.0-12.2 fL Immature Granulocyte % (Auto) 0 % Neutrophils (%) (Auto) 87 H 42-75 % Lymphocytes (%) (Auto) 6 L 12-44 % Monocytes (%) (Auto) 5 0-12 % Eosinophils (%) (Auto) 1 0-10 % Basophils (%) (Auto) 0 0-10 % Neutrophils # (Auto) 11.3 H 1.8-7.8 10^3/uL Lymphocytes # (Auto) 0.8 L 1.0-4.0 10^3/uL Monocytes # (Auto) 0.6 0.0-1.0 10^3/uL Eosinophils # (Auto) 0.2 0.0-0.3 10^3/uL Basophils # (Auto) 0.0 0.0-0.1 10^3/uL Immature Granulocyte # (Auto) 0.1 0.0-0.1 10^3/uL Neutrophils % (Manual) 86 % Lymphocytes % (Manual) 5 % Monocytes % (Manual) 3 % Band Neutrophils 4 % Reactive Lymphocytes 2 % Blood Morphology Comment NORMAL Prothrombin Time 13.5 12.2-14.7 SEC INR Comment 1.0 0.8-1.4 Activated Partial Thromboplast Time 28 24-35 SEC Sodium Level 135 135-145 MMOL/L Potassium Level 4.6 3.6-5.0 MMOL/L Chloride Level 102 98-107 MMOL/L Carbon Dioxide Level 15 L 21-32 MMOL/L Anion Gap 18 H 5-14 MMOL/L Blood Urea Nitrogen 30 H 7-18 MG/DL Creatinine 1.49 H 0.60-1.30 MG/DL Estimat Glomerular Filtration Rate 34 BUN/Creatinine Ratio 20 Glucose Level 149 H 70-105 MG/DL Lactic Acid Level 2.21 *H 0.50-2.00 MMOL/L Calcium Level 8.9 8.5-10.1 MG/DL Corrected Calcium 9.6 8.5-10.1 MG/DL Total Bilirubin 0.5 0.1-1.0 MG/DL Aspartate Amino Transf (AST/SGOT) 16 5-34 U/L Alanine Aminotransferase (ALT/SGPT) 8 0-55 U/L Alkaline Phosphatase 80 40-136 U/L Total Protein 5.9 L 6.4-8.2 GM/DL Albumin 3.1 L 3.2-4.5 GM/DL My Orders Orders - MAGI FERNANDES MD Cbc With Automated Diff (04/11/23 07:00) Comprehensive Metabolic Panel (04/11/23 07:00) Blood Culture (04/11/23 07:00) Sputum Culture (04/11/23 07:00) Urinalysis (04/11/23 07:00) Urine Culture (04/11/23 07:00) Protime With Inr (04/11/23 07:00) Partial Thromboplastin Time (04/11/23 07:00) Chest 1 View, Ap/Pa Only (04/11/23 07:00) Ed Iv/Invasive Line Start (04/11/23 07:00) Ed Iv/Invasive Line Start (04/11/23 07:00) Vital Signs Adult Sepsis Patie Q15M (04/11/23 07:00) O2 (04/11/23 07:00) Remove Rings In Anticipation O (04/11/23 07:00) Lactic Acid Analyzer (04/11/23 07:00) Manual Differential (04/11/23 07:07) Ceftriaxone Iv/Im (Ceftriaxone Iv/Im) (04/11/23 07:58) Vital Signs/I&O 04/11/23 04/11/23 06:53 06:53 Temp 36.9 Pulse 112 Resp 22 B/P (MAP) Pulse Ox 93 O2 Delivery Room Air Room Air Capillary Refill : Less Than 3 Seconds Progress Note : Progress Note Seen and evaluated. Sepsis protocol initiated including accessing PICC line, labs including CBC, CMP, blood cultures, lactic acid, UA and urine culture ordered. Chest x-ray ordered. I did discuss with the patient my concerns that she is very ill currently and would like to get blood pressure for which she declined. She states she knows where she is going and is not trying to prevent necessarily. She does state that she wants to be DNR which we will respect her wishes on. Monitor patient. Differential diagnosis includes UTI, pneumonia, sepsis, severe sepsis, electrolyte abnormality 0746: CBC reviewed and white count is elevated but down from yesterday. We have no urine yet. Chest x-ray reviewed by me and shows bilateral infiltrates and likely vascular congestion on my interpretation and radiology report agrees. CMP shows grossly normal electrolytes with slightly elevated serum creatinine and glucose with normal LFTs. Coags are normal. Lactic acid is elevated at 2.2. I did discuss all of this further with the patient and she does not want any significant care and in fact would like to go home now. She states her main concern is cough. I did discuss with her regarding hospice and she states that she has been on it before but outlived it but would be okay with considering that again given her current medical condition. 0800: I did speak with Dr. Spring Salmeron, patient's primary care physician. We will work on initiating hospice and she has been on [facility] before. We will call the hospice company and see if we can get evaluation here and then have patient return home. We will go ahead and give a dose of Rocephin 1 g IV for known urinary tract infection and question of pneumonia. There may be a component of heart failure but we will work more to keep her comfortable at this point and less about aggressive treatment. Dr. Salmeron agrees and patient agrees. Pending hospice evaluation and admission and then transfer home. Monitor patient. 0920: [facility] hospice has been here and patient will be admitted to their service. She does have a ride home. Discharged home to start hospice program. I did speak with the hospice nurse who is familiar with her and we will get things set up at home. Copy of the chart to Dr. Salmeron. Diagnostic Imaging Diagonstic Imaging: Xray Plain Films/CT/US/NM/MRI: chest Comments [facility] [place], [place] NAME: [facility] REC#: [id number] PT STATUS: REG ER : 1935 PHYSICIAN: MAGI FERNANDES MD ADMIT DATE: 04/11/23/ER Draft Date of Exam:04/11/23 CHEST 1 VIEW, AP/PA ONLY INDICATION: 87-year-old female with shortness of breath chest pain. COMPARISON: 04/10/2023 FINDINGS: Single view chest shows the cardiac contour to be upper limits of normal. There is some increasing central venous congestion. Some perihilar and bibasilar infiltrates are seen. There is aortic calcific atherosclerosis. Right-sided PICC line tip is stable. Soft tissues and bony thorax are unremarkable. IMPRESSION: 1. Slight increased central venous congestion suggesting element of congestive heart failure. 2. Some perihilar infiltrates are seen. The chest otherwise senescent. There is aortic calcific atherosclerosis. 3. Stable right-sided PICC line. Dictated on workstation # [id number] Dict: 04/11/23720 Trans: 04/11/23 0726 [facility] [id number] Interpreted by: ITALIA GONSALEZ MD Electronically signed by: Departure Impression Primary Impression: Pneumonia of both lower lobes Qualified Codes: J18.9 - Pneumonia, unspecified organism Additional Impression: Urinary tract infection Qualified Codes: N30.00 - Acute cystitis without hematuria Disposition: HOME, SELF-CARE Condition: Stable Departure-Patient Inst. Decision time for Depature: 09:21 Referrals: SPRING SALMERON MD (PCP/Family) Primary Care Physician Patient Instructions: CHF, Pneumonia, Adult ED, Urinary Tract Infection, Adult (DC) Add. Discharge Instructions: All discharge instructions reviewed with patient and/or family. Voiced understanding. Continue home meds as previously prescribed. Initiate hospice at home follow their therapy. Follow-up with Dr. Salmeron as needed. Return for other concerns as needed. Copy Copies To 1: SPRING SALMERON MD, TIMOTHY D MD Apr 11, 2023 07:58
== END 2023-04-11 09:42 | disposition home or self-care (01) ==
LOC: EDUNIT# 06:51 → ER 06:53
DX: S40.022A Contusion of left upper arm, initial encounter (principal); S40.021A Contusion of right upper arm, initial encounter; J44.0 Chronic obstructive pulmonary disease with (acute) lower respiratory infection; J18.9 Pneumonia, unspecified organism; N39.0 Urinary tract infection, site not specified; X58.XXXA Exposure to other specified factors, initial encounter
CPT/HCPCS: 36415; 71045; 80053; 83605; 85007; 85027; 85610; 85730; 87040